=== PATIENT | male | born 1950 | race Caucasian/White ===

== ENCOUNTER → 2017-03-04 | Outpatient (CLI) | payer OTHER ==
[~2017-03-04] MED LIST: ASPI325T45 PO; ATEN50TA8 PO; ATOR-54 PO
[2017-03-04 14:50] LABS: BASO % 0.5 %; BASO ABS # 0.04 K/uL (0-0.2); COMPLETE YES; EOS % 3.8 %; HEMATOCRIT 44.5 % (42-52); IG% 0.5 %; LYMPH % 31.1 %; LYMPH ABS # 2.56 K/uL (1.2-3.4); MEAN CELL VOLUME 92.3 fL (80-100); MEAN CORPUSCULAR HEMOGLOBIN 31.5 pg (25-34); MEAN CORPUSCULAR HGB CONC 34.2 g/dl (32-36); MEAN PLATELET VOLUME 9.8 fL (7.4-10.4); MONO % 7.6 %; NEUT % 56.5 %; PLATELET COUNT 290 K/uL (130-400); RED BLOOD COUNT 4.82 M/uL (4.7-6.1); WHITE BLOOD COUNT 8.24 K/uL (4.8-10.8)
[2017-03-04 15:31] LABS: BLOOD UREA NITROGEN 14 mg/dl (7-18); BUN/CREATININE RATIO 13.7 (10-20); CALCIUM 8.8 mg/dl (8.5-10.1); CARBON DIOXIDE 24 mmol/L (21-32); CHLORIDE 107 mmol/L (98-107); GLUCOSE 108 mg/dl (70-99); POTASSIUM 4.2 mmol/L (3.5-5.1); SODIUM 139 mmol/L (136-145)
== END | disposition home or self-care (01) ==
LOC: C.LABSPEC 14:30
PROVIDERS: ATTEND Internal Medicine
DX: Z01.812 Encounter for preprocedural laboratory examination (principal); I10 Essential (primary) hypertension

== ENCOUNTER → 2017-03-11 | Day surgery (SDC) | payer OTHER ==
[2017-02-10 10:55] VITALS: Ht 177.8 cm; Wt 97.7 kg
--- NOTE | 2017-03-07 13:22 | HISTORY & PHYSICAL EXAMINATION ---
DATE OF ADMISSION: 03/11/2017 HISTORY OF PRESENT ILLNESS: A 66-year-old male scheduled to undergo left cataract surgery on 03/11/2017. His medical problems include: 1. Arterial hypertension. 2. Hyperlipidemia. 3. Smoker. 4. Insomnia. CURRENT MEDICATIONS: Include: 1. Atenolol 50 mg daily. 2. Lipitor 20 mg daily. 3. Lorazepam 0.5 mg at bedtime as needed. 4. Aspirin occasionally about twice a week. Overall, he is doing quite well. REVIEW OF SYSTEMS: He denied any headache or dizziness or lightheadedness. Denied any earache, sore throat or neck pain. He does have decreased hearing. Denied any neck pain. No chest pain, pressure or tightness. No shortness of breath. No cough, no sputum, no hemoptysis. Denied any abdominal pain. No nausea, no vomiting. No problem with his bowel movements. No blood in his stool. No urinary problem. No pain in his back or extremities. No ankle edema. PAST MEDICAL HISTORY: Include: 1. Arthroscopic surgery of the left knee done in the remote past. He fell down off his truck and injured his knee. 2. He has had prior episode of bronchitis. SOCIAL HISTORY: He is . He has 3 daughters. Denied any excessive amount of alcohol. He does smoke now about 2 packs per week. No drugs. No excessive coffee, tea or soft drinks. 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 FAMILY HISTORY: Positive for coronary artery disease and his father had it. One sister had multiple sclerosis. ALLERGIES: None. MEDICATIONS: As noted above. REVIEW OF SYSTEMS: As noted above. GENERAL: Well-developed in no distress. Weight 221.4 pounds, height 66.5 inches, BMI 35.2. VITAL SIGNS: Blood pressure 114/60, pulse 68 and regular, temperature 98.5, respirations 18. SKIN: Warm and dry. No rash. HEAD, EYES, EARS, NOSE, AND THROAT: He does wear glasses. Decreased vision related to his cataracts. Decreased hearing. No mucosal abnormalities in his nose, mouth or throat. NECK: Supple. Nontender. No adenopathy, no thyromegaly. No JVD. Normal carotid pulses. No carotid bruit. CHEST: Normal. HEART: Regular heart sounds without any murmur, rub or gallop. LUNGS: Clear. ABDOMEN: Soft, nontender, without organomegaly or masses. BACK: No spinal tenderness. EXTREMITIES: No edema, clubbing, or cyanosis. No joint or muscle tenderness. Absent right dorsalis pedis pulse. The rest of his pedal pulses are normal. NEUROLOGICAL EXAMINATION: He is alert and oriented without evidence of any deficits. ASSESSMENT: 1. Bilateral cataracts. Scheduled for his left cataract surgery on 03/11/2017. The left eye will be operated on about a month. 2. Arterial hypertension. 3. Hyperlipidemia. 4. Insomnia. 5. Smoker. PLAN: 1. Electrocardiogram was done in the office. He does have a chronic right bundle branch block. His electrocardiogram did not show any changes compared to prior electrocardiogram done in the hospital. 2. Blood was drawn for a CBC. His CBC was completely normal. Also was drawn for a PRP and that is also normal. 3. He will continue taking his same medications. 4. His condition is stable. I do not see any contraindication to his anticipated cataract surgery. 5. He will follow up with the office as scheduled.
[~2017-03-11] VITALS: Ht 177.8 cm; Wt 97.7 kg
[~2017-03-11] MED LIST changes: +500ML BSS 0.3ML EPI 1:1000PF IRRIG ONE; +ACETAMINOPHEN 325 MG TAB PO PRN; +AMVISC PLUS 0.8ML SYRINGE INT OCU ONE; +ATROPINE SULFATE 0.1 MG/ML 5ML SYR IV PRN; +BSS FLUSH ONE; +EpHEDrine SULFATE INJ 50 MG/ML AMP IV PRN; +EpINEphrine INJ 1MG/ML AMP 1 MG/ML AMP ONE; +LACTATED RINGER'S 1000ML 500 ML IV SCH; +LIDOCAINE 3.5% OPH GEL PER APPLICATION CHARGE ONE; +LIDOCAINE HCL 1% MPF 2 ML VIAL ONE; +MIDAZOLAM HCL 1 MG/ML 2ML VIAL ONE; +OCUCOAT 1 ML SOLN IO ONE; +POVIDONE-IODINE OP SOLN 30 ML BTL ONE; +PROPARACAINE 0.5% OP SOLN PER DROP CHARGE OPL SCH; +TOBRAMYCIN/DEXAMETHASONE OPH OINT PER APPLN CHARGE ONE
[2017-03-11] MEDS: PHENYLEPHRINE HCL 2.5% OP SOLN PER DROP CHARGE OPL SCH ×2 (10:11→10:16)
[2017-03-11] MEDS: TROPICAMIDE 1% OP SOLN PER DROP CHARGE OPL SCH ×2 (10:12→10:17)
[2017-03-11] MEDS: CYCLOPENTOLATE HCL 1% OP SOLN PER DROP CHARGE OPL SCH ×2 (10:13→10:18)
[2017-03-11] MEDS: KETOROLAC 0.5% OP SOLN PER DROP CHARGE OPL SCH ×2 (10:14→10:19)
[2017-03-11] MEDS: GATIFLOXACIN OP SOLN PER DROP CHARGE OPL SCH ×2 (10:15→10:25)
--- NOTE | 2017-03-11 11:24 | History & Physical Bridge - SC ---
H&P Re-Evaluation Bridge Note: I have examined the patient, reviewed the History & Physical and in the interval since the performance of the History & Physical I have noted the following changes of clinical significance: No changes noted
--- NOTE | 2017-03-11 11:58 | Discharge Instructions-SurgCtr ---
Discharge Instructions Date of Service Mar 11, 2017. Visit Reason for Visit: Cataract Left Eye Discharge Discharge Diagnosis / Problem: cataract Discharge Goals Goal(s): Improve function Activity Recommendations Activity Limitations: per Instructions/Follow-up section Anesthesia . Post Anesthesia Instructions: If you have had General Anesthesia or IV Sedation: * Do not drive today. * Resume driving when surgeon permits. * Do not make important decisions or sign legal documents today. * Call surgeon for: 1. Temperature elevations greater than 101 degrees F. 2. Uncontrollable pain. 3. Excessive bleeding. 4. Persistent nausea and vomiting. 5. Medication intolerance (nausea, vomiting or rash). * For nausea and vomiting use only clear liquids such as: tea, soda, bouillon until nausea subsides, then gradually increase diet as tolerated. * If you have any concerns or questions, call your surgeon's office. If physician is unavailable and it is an emergency, call 911 or go to the nearest emergency room. . Instructions / Follow-Up Instructions / Follow-Up ACTIVITY RECOMMENDATIONS: * No strenuous lifting, jogging or running for 4 days * No swimming or yard work for 1 week. * Limited bending is permitted, such as putting on shoes. RETURN TO SCHOOL/WORK: No work until seen by physician in office. MEDICATIONS: Resume previous medications unless instructed otherwise by your surgeon. This includes eye drops for glaucoma. Zymaxid/Gatifloxacin (larose cap) - one drop every 2 hours until bedtime Nevanac/Ilevro/Prolensa/Ketorolac (doll cap) - one drop every 4 hours until bedtime Prednisolone (white/pink cap, SHAKE WELL) - one drop every 2 hours until bedtime Starting tomorrow - all 3 drops every 4 hours until seen in the office Optive drops - as needed for discomfort SPECIAL CARE INSTRUCTIONS: * Wear eyeshield when sleeping, for four nights. * You may wear your own glasses or sunglasses while awake. * You may read or watch TV * You may shower and wash your face, but be gentle around the eye and pat dry. * Blurry vision and mild irritation are normal. * Call office if pain is more severe or vision becomes dark at . FOLLOW UP VISIT: Follow-up with Dr Hines tomorrow. Diet Recommendations Home Diet: resume previous diet Procedures Procedures Performed: Left Cataract Phacoemulsification With Intraocular Lens Implant Pending Studies Studies pending at discharge: no Medical Emergencies . Who to Call and When: Medical Emergencies: If at any time you feel your situation is an emergency, please call 911 immediately. . Non-Emergent Contact Non-Emergency issues call your: Engineering Project Manager . . "Provider Documentation" section prepared by Martinez Hines. .
--- NOTE | 2017-03-11 11:58 | [facility] Operative Report ---
Operative Report Date of Service Mar 11, 2017. Operative Report 1. PREOPERATIVE DIAGNOSIS: Cataract of the left eye. 2. POSTOPERATIVE DIAGNOSIS: Same. 3. PROCEDURE: Phacoemulsification with intraocular lens implantation of the left eye. SURGEON: Dr. Martinez Hines. ANESTHESIA: Topical Lidocaine gel, 1% Non- Preserved intracameral Lidocaine, and monitored intravenous sedation. INDICATIONS FOR THE PROCEDURE: The patient is a 66 - year-old male with a history of cataract of the left eye causing significant visual impairment. The details of the proposed procedure were explained to the patient who asked appropriate questions and following discussion of all risks, benefits and alternatives agreed to have the procedure done. 4. OPERATION AND FINDINGS: DESCRIPTION OF PROCEDURE: After informed consent was obtained, the patient was brought to the Operating Room at the [facility]. The patient was placed in a supine position and then the left eye was prepped and draped in the usual sterile fashion for intraocular surgery. A drop of topical Lidocaine gel was placed in the operative eye. A wire lid speculum was then placed in the fornices. A corneal paracentesis was then created temporally. The Non-Preserved Lidocaine was then instilled into the anterior chamber. The anterior chamber was then pressurized with viscoelastic. A 2.0 mm clear corneal incision was then created temporally. A cystotome was inserted into the anterior chamber and used to create a tear in the anterior lens capsule. This capsular tear was then used to create a small flap and the flap was dragged in a counterclockwise direction in order to create a continuous curvilinear capsulorrhexis. Hydrodissection was accomplished with balanced salt solution. Phacoemulsification of the lens nucleus was then performed in a standard [id number] technique. The phaco time was 24 seconds with an average power of 9 %. The remaining cortical material was removed using irrigation aspiration. The capsular bag was then filled with viscoelastic. A [employer]ch [employer] Lomb MI60L +20.0 diopters lens was then loaded into the injector and injected into the capsular bag. The remaining viscoelastic was removed with the irrigation aspiration handpiece. The wound was hydrated and then checked and found to be watertight. The intraocular pressure was checked and found to be adequate. The wire lid speculum was removed and the patient's face was cleaned and dried. TobraDex ointment was placed in the inferior fornix. The patient was discharged to the Recovery Room having tolerated the procedure well. There were no complications. The patient will be seen tomorrow in the office for follow-up. I attest to the content of the Intraoperative Record and any orders documented therein. Any exceptions are noted below.
[2017-03-11 11:59] VITALS: TEMP 36.6
[2017-03-11 12:32] VITALS: BP 150/72; PULSE 60; O2SAT 98
--- NOTE | 2017-03-11 12:36 | Anesthesia Progress Nt - [facility] ---
Anesthesia Post Op Note Date & Time Mar 11, 2017 at 12:36 Vital Signs Pain Intensity: 0 Vital Signs Past 12 Hours Date Time Temp Pulse Resp B/P Pulse Ox O2 Delivery O2 Flow Rate FiO2 03/11/17 12:32 60 16 150/72 98 Room Air 03/11/17 11:59 36.6 59 18 135/85 98 Room Air 03/11/17 09:59 36.7 70 16 132/86 98 Room Air Notes Mental Status: alert / awake / arousable, participated in evaluation Pt Amnestic to Procedure: Yes Nausea / Vomiting: adequately controlled Pain: adequately controlled Airway Patency, RR, SpO2: stable & adequate BP & HR: stable & adequate Hydration State: stable & adequate Anesthetic Complications: no major complications apparent
== END | disposition home or self-care (01) ==
LOC: X.SURG 09:40
PROVIDERS: ATTEND Ophthalmology
DX: H26.9 Unspecified cataract (principal); I10 Essential (primary) hypertension; E78.5 Hyperlipidemia, unspecified; F17.200 Nicotine dependence, unspecified, uncomplicated; G47.00 Insomnia, unspecified

== ENCOUNTER → 2017-04-21 | Outpatient (CLI) | payer OTHER ==
[~2017-04-21] MED LIST changes: -500ML BSS 0.3ML EPI 1:1000PF IRRIG ONE; -ACETAMINOPHEN 325 MG TAB PO PRN; -AMVISC PLUS 0.8ML SYRINGE INT OCU ONE; -ATROPINE SULFATE 0.1 MG/ML 5ML SYR IV PRN; -BSS FLUSH ONE; -EpHEDrine SULFATE INJ 50 MG/ML AMP IV PRN; -EpINEphrine INJ 1MG/ML AMP 1 MG/ML AMP ONE; -LACTATED RINGER'S 1000ML 500 ML IV SCH; -LIDOCAINE 3.5% OPH GEL PER APPLICATION CHARGE ONE; -LIDOCAINE HCL 1% MPF 2 ML VIAL ONE; -MIDAZOLAM HCL 1 MG/ML 2ML VIAL ONE; -OCUCOAT 1 ML SOLN IO ONE; -POVIDONE-IODINE OP SOLN 30 ML BTL ONE; -PROPARACAINE 0.5% OP SOLN PER DROP CHARGE OPL SCH; -TOBRAMYCIN/DEXAMETHASONE OPH OINT PER APPLN CHARGE ONE
== END | disposition home or self-care (01) ==
LOC: C.LABSPEC 12:26
PROVIDERS: ATTEND Internal Medicine
DX: Z12.11 Encounter for screening for malignant neoplasm of colon (principal)

== ENCOUNTER → 2017-04-23 | Outpatient (CLI) | payer OTHER ==
[2017-04-23 13:22] LABS: CALCIUM 8.9 mg/dl (8.5-10.1)
[2017-04-23 13:25] LABS: ALT/SGPT 25 U/L (12-78); BLOOD UREA NITROGEN 12 mg/dl (7-18); BUN/CREATININE RATIO 12.4 (10-20); CARBON DIOXIDE 24 mmol/L (21-32); CHLORIDE 106 mmol/L (98-107); CHOLESTEROL 192 mg/dl (0-200); GLUCOSE 97 mg/dl (70-99); POTASSIUM 4.4 mmol/L (3.5-5.1); SODIUM 138 mmol/L (136-145); TRIGLYCERIDES 170 mg/dl (0-150); VERY LOW DENSITY LIPOPROT CALC 34 mg/dl
[2017-04-23 13:31] LABS: ALKALINE PHOSPHATASE 85 U/L (45-117); AST/SGOT 21 U/L (15-37); CHOLESTEROL/HDL RATIO 5.5; HDL CHOLESTEROL 35 mg/dl
[2017-04-23 14:05] LABS: ESTIMATED AVERAGE GLUCOSE 123 mg/dl; HA1C FLAG Normal (Normal)
--- NOTE | 2017-05-01 06:03 | CODING QUERY MEDICAL NECESSITY ---
CQSUPPORTING DIAGNOSIS NEEDED A supporting diagnosis is required for the test/procedure performed on this patient in order for us to be reimbursed by the patient's insurance. Please provide a supporting diagnosis for the following test/procedure listed below next to the test name along with your signature. *If there is no additional diagnosis for this patient that would support the following test/procedure please document that below next to the test/procedure. Test(s)/Procedure(s) that require a supporting diagnosis: DOS 04/23/17 PROSTATE SPECIFIC TEST Provider Signature: Date: Thank you Lyn Alonso [employer] Once completed, please kindly fax back to [phone] For questions please call [phone]
== END | disposition home or self-care (01) ==
LOC: C.LABSPEC 12:38
PROVIDERS: ATTEND Internal Medicine
DX: R73.9 Hyperglycemia, unspecified (principal); I10 Essential (primary) hypertension; E78.5 Hyperlipidemia, unspecified; Z00.01 Encounter for general adult medical examination with abnormal findings; N40.1 Benign prostatic hyperplasia with lower urinary tract symptoms; R30.0 Dysuria

== ENCOUNTER 2022-03-22 15:47 | Inpatient (IN) ==
[2022-03-22] MEDS ORDERED: SODIUM CHLORIDE 0.9% 500 ML IV STA (15:49)
[2022-03-22] MEDS ORDERED: KETAMINE HCL INJ 50 MG/ML 10 ML VIAL ONE (16:01)
[2022-03-22] MEDS ORDERED: KETAMINE HCL INJ 50 MG/ML 10 ML VIAL IV ONE (16:15)
--- NOTE | 2022-03-22 16:26 | Emergency Department Note ---
Impression & Plan CHB (complete heart block), Syncope, Acute non-ST elevation myocardial infarction (NSTEMI) ED Provider Note NAME: TRUPTI SALOMON AGE: 71 SEX: M : 1950 ARRIVES VIA: Ambulance INFORMANT: Patient, EMS ED PROVIDER(S): Erik Dominguez DO CHIEF COMPLAINT: Syncope HPI: The patient is a 71-year-old male who presented to the emergency department by ambulance for an evaluation after having a syncopal episode. I did receive a prehospital notification about the patient coming to the emergency department. The pneumatic press hand called me to inform me that the patient had an episode of syncope while on the toilet. He has had some GI symptoms over the last 2 days including nausea vomiting and diarrhea. He also has been seen by his family doctor. They want to do a formal work-up to rule out an aneurysm in the brain as he has been having dizzy spells and headaches. The patient does not have a known history of aneurysm. He has no history of known coronary artery disease. He does take medications for hypertension and high cholesterol. He had an episode of syncope and then was found to be bradycardic. He had a questionable episode of shaking but no postictal phase. The paramedics found the patient to be in severe bradycardia in the 20s. He received atropine which did not change his heart rate. The patient did not have a blood pressure obtained as he could not obtain 1 in the prehospital arena. The patient was mentating upon arrival to the emergency department. He denies having any headache at this time. He has had no chest pain or difficulty breathing. He denies having any abdominal pain or swelling. The patient was discussed with the box blank machine operator helper immediately upon his arrival to the emergency department. Transcutaneous pacemaker was placed prior to arrival. ROS: See above HPI for pertinent positives & negatives. A total of 10 systems reviewed and were otherwise negative. PAST MEDICAL HISTORY: See Below PAST SURGICAL HISTORY: See Below FAMILY HISTORY: See Below SOCIAL HISTORY: See Below HOME MEDICATIONS: See Below ALLERGIES: See Below VITALS: See Below PHYSICAL EXAMINATION: GENERAL: The patient is awake and alert. He is very uncomfortable appearing and anxious. His color is ashen doll. EYES: The conjunctivae are clear. The pupils are round and reactive. EARS, NOSE, MOUTH AND THROAT: The nose is without any evidence of any deformity. NECK: The neck is nontender and supple. RESPIRATORY: Normal respiratory effort is noted there is no evidence of wheezing rhonchi or rales CARDIOVASCULAR: Heart sounds were intermittently noted. It was difficult to auscultate secondary to the pacemaker. GASTROINTESTINAL: The abdomen is soft. Abdomen is nontender. MUSCULOSKELETAL/EXTREMITIES: There is no evidence of gross deformity full range of motion is noted in the hips and shoulders. SKIN: Skin was cool and dry. There is no significant pedal edema. NEUROLOGIC: Patient is awake alert and oriented x3 strength is symmetric patellar reflexes are 2+ bilaterally MEDICAL DECISION MAKING: The patient is a 71-year-old male who presented to the emergency department for an evaluation after having a syncopal episode. I received a prehospital notification about the patient as he was in complete heart block with a heart rate in the 20s. He was given atropine prior to arrival. This did not improve his symptoms or his heart rate. The patient was then started on transcutaneous pacer. He arrived to the emergency department with normal mentation but had episodes where he would seem to have syncope again only to return after the transcutaneous pacemaker would recapture. The patient appears to have complete heart block on his prehospital EKG. I discussed his condition with the on-call [facility] box blank machine operator helper. The patient was felt to be a candidate for temporary transvenous pacer. He was taken directly to the Pricing Clerk. I went to the Pricing Clerk with the patient. I discussed the patient's condition with the on-call [facility] hospitalist. They have agreed to evaluate the patient in the ICU for further management. The patient was also being worked up by his primary care physician for dizziness symptoms. He has not had formal neurologic work-up as of yet. I would wonder if these episodes he was having which led to syncope could be what he was describing to his primary care physician as well. Triage Nursing notes reviewed. Prior medical records reviewed Vital Signs: reviewed and remarkable for initial bradycardia with heart block. Differential diagnosis: Vasovagal event, dehydration, infection, hypoglycemia, electrolyte abnormalities, cardiac sources, intracerebral event, pulmonary embolism, seizur e, toxicologic, neurologic, as well as other pathologies. ER treatment provided: See below Diagnostics interpreted by me: ECG: EKG was obtained in the emergency department. It was noted to be paced rhythm at 80 bpm. It was difficult to evaluate secondary to the transcutaneous pacer. Prehospital EKG was evaluated. It appears to be consistent with complete heart block with a ventricular rate in the 20s. This was compared to a previous tracing from 05/07/2016. The changes are new compared to the previous tracing. Cardiac Monitoring: An order was placed for continuous cardiac monitoring. The monitor shows a rate of 80 bpm paced rhythm. Laboratory studies: As stated above and show below. Imaging studies: See below Consultation(s): I discussed this case with Dr. Ortez who offered to evaluate the patient in the emergency department immediately for formal pacemaker placement. The Pricing Clerk was sent down the patient was taken up to the Pricing Clerk by myself as well as Pricing Clerk nurses. Dr. Ham was notified about the patient. ED COURSE: Procedures: none Critical Care: I have personally spent greater than 45 minutes of critical care time in the direct management of this patient. This includes bedside care, interpretation of diagnostic studies, and testing, discussion with consultants, patient, and family members, and other required patient management activities. This 45 minutes is in excess of all separately billable procedures. Past Med/Surg History Medical History (Updated 03/22/22 @ 17:34 by Erik Dominguez DO) Anxiety Carpal tunnel syndrome Depression Hearing deficit Left Hypercholesteremia Hypertension Osteoarthritis Peripheral vascular disease RLE stent (Dr Acevedo/2017) Surgical History History of carpal tunnel release Left CTR: 12/22/19: MAC sedation at [facility] [place] History of colonoscopy Hx of excision of epidermal inclusion cyst Dr. Castro 07-01-19 Hx of left cataract extraction Hx of left knee surgery Arthroscopy (20 years ago) Family History Brother Stroke Social History Smoking Status: Former smoker Tobacco Type: Cigarettes Cigarettes Per Day: 2 pk per week; Second Hand Exposure: No; Hx Alcohol Use: Yes Alcohol type: beer and hard liquor Hx Substance Use: No Preferred Language: Nigerian Communication Ability: Effective Library Clerk Required: No Beliefs That Will Affect Care: None marital status: Current Living Situation: Alone current occupational status: retired current occupation: [employer] Other Information That Helps Us Care for You: No Feels Safe at Home: Yes Safety Concerns: Feels Safe At This Time Assistive Devices: Glasses Allergies Allergies Allergy/AdvReac Type Severity Reaction Status Date / Time No Known Allergies Allergy Verified 04/06/20 14:09 Home Meds Home Medications Medication Instructions Recorded Confirmed atenolol 50 mg tablet 50 mg PO QAM tab 06/10/19 04/06/20 atorvastatin 20 mg tablet 20 mg PO QAM tab 06/10/19 04/06/20 lorazepam 1 mg tablet 1 mg PO HS PRN tab 06/10/19 04/06/20 aspirin 81 mg tablet,delayed 81 mg PO QAM 12/16/19 04/06/20 release (Aspir-) Previous Rx's Medication Instructions Recorded meloxicam 15 mg tablet 15 mg PO DAILY PRN #30 tab 08/04/20 Results & Data (ED) Vital Signs Vital Signs - 24 hr 03/22/22 15:47 03/22/22 16:05 03/22/22 16:40 Temperature 36.4 C L Temperature Source Oral Pulse Rate 80 Pulse Rate [Apical] 80 Pulse Rhythm [Apical] Regular Pulse Strength [Apical] Normal Respiratory Rate 28 H 16 Respiratory Effort / Characteristics Non-Labored Spontaneous Respiratory Depth Normal Blood Pressure [Left Arm] 135/107 H 132/89 Blood Pressure Mean [Left Arm] 116 103 Blood Pressure Position [Left Arm] Lying Pulse Oximetry 90 98 Oxygen Delivery Method Non-rebreather Nasal Cannula Oxygen Flow Rate 15 3 Sepsis Recent Fever Within 48 Hours No Sepsis New/Unexplained Change in Mental Status No Sepsis Action Taken by Nursing No Action Required 03/22/22 16:55 03/22/22 17:09 03/22/22 17:26 Temperature Temperature Source Pulse Rate Pulse Rate [Apical] 80 80 80 Pulse Rhythm [Apical] Regular Regular Regular Pulse Strength [Apical] Normal Normal Normal Respiratory Rate 16 16 16 Respiratory Effort / Characteristics Non-Labored Spontaneous Non-Labored Spontaneous Non-Labored Spontaneous Respiratory Depth Normal Normal Normal Blood Pressure [Left Arm] 115/83 98/80 L 115/84 Blood Pressure Mean [Left Arm] 93 86 94 Blood Pressure Position [Left Arm] Lying Lying Lying Pulse Oximetry 98 98 98 Oxygen Delivery Method Nasal Cannula Nasal Cannula Nasal Cannula Oxygen Flow Rate 3 3 3 Sepsis Recent Fever Within 48 Hours Sepsis New/Unexplained Change in Mental Status Sepsis Action Taken by Nursing 03/22/22 17:36 Temperature Temperature Source Pulse Rate Pulse Rate [Apical] 80 Pulse Rhythm [Apical] Regular Pulse Strength [Apical] Normal Respiratory Rate 16 Respiratory Effort / Characteristics Non-Labored Spontaneous Respiratory Depth Normal Blood Pressure [Left Arm] 125/75 Blood Pressure Mean [Left Arm] 91 Blood Pressure Position [Left Arm] Lying Pulse Oximetry 98 Oxygen Delivery Method Nasal Cannula Oxygen Flow Rate 3 Sepsis Recent Fever Within 48 Hours Sepsis New/Unexplained Change in Mental Status Sepsis Action Taken by Care Home Medications Current Medication List: was personally reviewed by me Laboratory Data Attestation: I reviewed the patient's lab results. Result diagrams: 03/23/22 02:25 03/23/22 02:25 Lab Results 03/22/22 03/22/22 03/22/22 Range/Units 16:00 16:00 16:00 WBC 16.71 H (4.8-10.8) K/uL RBC 4.73 (4.7-6.1) M/uL Hgb 14.6 (14.0-18.0) g/dL Hct 43.5 (42-52) % MCV 92.0 (80-100) fL MCH 30.9 (25-34) pg MCHC 33.6 (32-36) g/dL RDW Std Deviation 42.6 (36.4-46.3) fL RDW Coeff of Marco Antonio 12.6 (11.5-14.5) % Plt Count 300 (130-400) K/uL MPV 10.0 (7.4-10.4) fL Immature Gran % (Auto) 0.5 % Neut % (Auto) 76.0 % Lymph % (Auto) 17.2 % [place] % (Auto) 5.3 % Eos % (Auto) 0.8 % Baso % (Auto) 0.2 % Neut # (Auto) 12.71 H (1.4-6.5) K/uL Lymph # (Auto) 2.87 (1.2-3.4) K/uL [place] # (Auto) 0.88 H (0.11-0.59) K/uL Eos # (Auto) 0.13 (0-0.5) K/uL Baso # (Auto) 0.03 (0-0.2) K/uL Immature Gran # (Auto) 0.09 H (0.00-0.02) K/uL PT 10.9 (9.0-12.0) Seconds INR 1.0 (0.9-1.1) APTT 25.9 (21.0-31.0) Seconds PTT Ratio 0.9 Sodium 134 L (136-145) mmol/L Potassium 5.1 (3.5-5.1) mmol/L Chloride 101 (98-107) mmol/L Carbon Dioxide 23 (21-32) mmol/L Anion Gap 10 (3-11) BUN 17 (6-23) mg/dl Creatinine 1.40 (0.6-1.4) mg/dl Est Cr Clr Drug Dosing 56.4 ml/min Est GFR ( Amer) 57.8 ml/min Est GFR (Non-Af Amer) 49.8 ml/min BUN/Creatinine Ratio 12.1 (10-20) Glucose 221 H (70-99(Fasting)) mg/dl Calcium 9.0 (8.5-10.1) mg/dl Magnesium 2.0 (1.7-2.4) mg/dl Total Bilirubin 0.6 (0.2-1.0) mg/dl AST 23 (13-39) U/L ALT 13 (7-52) U/L Alkaline Phosphatase 76 (34-104) U/L Troponin I High Sens 1158.8 H* (0-20) pg/ml Total Protein 6.9 (6.0-8.3) gm/dl Albumin 3.9 (3.4-5.0) gm/dl Globulin 3.0 (2.5-4.0) gm/dl Albumin/Globulin Ratio 1.3 (0.9-2) TSH (0.300-4.500) uIu/ml Lyme Disease IgG Ab (Negative) Lyme Disease IgM Ab (Negative) SARS-CoV-2, RNA, NAAT (NEGATIVE) 03/22/22 03/22/22 03/22/22 Range/Units 16:00 16:00 16:05 WBC (4.8-10.8) K/uL RBC (4.7-6.1) M/uL Hgb (14.0-18.0) g/dL Hct (42-52) % MCV (80-100) fL MCH (25-34) pg MCHC (32-36) g/dL RDW Std Deviation (36.4-46.3) fL RDW Coeff of Marco Antonio (11.5-14.5) % Plt Count (130-400) K/uL MPV (7.4-10.4) fL Immature Gran % (Auto) % Neut % (Auto) % Lymph % (Auto) % [place] % (Auto) % Eos % (Auto) % Baso % (Auto) % Neut # (Auto) (1.4-6.5) K/uL Lymph # (Auto) (1.2-3.4) K/uL [place] # (Auto) (0.11-0.59) K/uL Eos # (Auto) (0-0.5) K/uL Baso # (Auto) (0-0.2) K/uL Immature Gran # (Auto) (0.00-0.02) K/uL PT (9.0-12.0) Seconds INR (0.9-1.1) APTT (21.0-31.0) Seconds PTT Ratio Sodium (136-145) mmol/L Potassium (3.5-5.1) mmol/L Chloride (98-107) mmol/L Carbon Dioxide (21-32) mmol/L Anion Gap (3-11) BUN (6-23) mg/dl Creatinine (0.6-1.4) mg/dl Est Cr Clr Drug Dosing ml/min Est GFR ( Amer) ml/min Est GFR (Non-Af Amer) ml/min BUN/Creatinine Ratio (10-20) Glucose (70-99(Fasting)) mg/dl Calcium (8.5-10.1) mg/dl Magnesium (1.7-2.4) mg/dl Total Bilirubin (0.2-1.0) mg/dl AST (13-39) U/L ALT (7-52) U/L Alkaline Phosphatase (34-104) U/L Troponin I High Sens (0-20) pg/ml Total Protein (6.0-8.3) gm/dl Albumin (3.4-5.0) gm/dl Globulin (2.5-4.0) gm/dl Albumin/Globulin Ratio (0.9-2) TSH 2.532 (0.300-4.500) uIu/ml Lyme Disease IgG Ab Negative (Negative) Lyme Disease IgM Ab Negative (Negative) SARS-CoV-2, RNA, NAAT NEGATIVE (NEGATIVE) Administered Medications Heparin Sodium/Dextrose (Heparin Sodium/Dextrose) 25,000 units in 500 mls @ 30 mls/hr IV .[id number] [facility]; Protocol Stop: 04/21/22 19:44 Last Titration: 03/23/22 06:53 Dose: 1,500 units/hr, 30 mls/hr Documented by: [id number] Cosigned by: [id number] Admin: 03/22/22 20:05 Dose: 1,500 units/hr, 30 mls/hr Documented by: [id number] Cosigned by: [id number] Discontinued Medications Sodium Chloride (Nss) 500 mls @ 999 mls/hr IV .Q31M STA Stop: 03/22/22 16:19 Last Infusion: 03/22/22 20:36 Dose: 0 mls/hr Documented by: [id number] Admin: 03/22/22 16:05 Dose: 999 mls/hr Documented by: [id number] Ketamine HCl (Ketamine Hcl Inj 50 Mg/Ml 10 Ml Vial) Confirm Administered Dose 500 mg .ROUTE .STK-MED ONE Stop: 03/22/22 16:02 Last Admin: 03/22/22 16:05 Dose: 100 mg Documented by: [id number] Ketamine HCl (Ketamine Hcl Inj 50 Mg/Ml 10 Ml Vial) 100 mg IV ONE ONE Stop: 03/22/22 16:16 Last Admin: 03/22/22 16:10 Dose: Not Given Documented by: [id number] Discharge Plan Visit Data Chief Complaint: Bradycardia ED Provider: Erik Dominguez Discharge Problem: CHB (complete heart block), Syncope, Acute non-ST elevation myocardial i nfarction (NSTEMI) Patient Disposition: Being Evaluated by Hospitalist Discharge Instructions Interventions: ED Discharge Assessment Last Done: 03/22/22 16:08 Discharge Problem: Syncope Qualifiers: Syncope type: unspecified Qualified Code(s): R55 - Syncope and collapse
[2022-03-22 16:30] LABS: Basophils # (auto) 0.03 K/uL (0-0.2); Basophils % (auto) 0.2 %; Eosinophils # (auto) 0.13 K/uL (0-0.5); Eosinophils % (auto) 0.8 %; Hematocrit (blood only) 43.5 % (42-52); Hemoglobin 14.6 g/dL (14.0-18.0); Immature Granulocytes # (auto) 0.09 K/uL (0.00-0.02); Immature Granulocytes % (auto) 0.5 %; Lymphocytes # (auto) 2.87 K/uL (1.2-3.4); Lymphocytes % (auto) 17.2 %; Mean Corpuscular Hemoglobin 30.9 pg (25-34); Mean Corpuscular Hgb Conc 33.6 g/dL (32-36); Monocytes # (auto) 0.88 K/uL (0.11-0.59); Monocytes % (auto) 5.3 %; Neutrophils # (auto) 12.71 K/uL (1.4-6.5); Platelet Count 300 K/uL (130-400); RDW Coefficient of Variation 12.6 % (11.5-14.5); RDW Standard Deviation 42.6 fL (36.4-46.3); Red Blood Count 4.73 M/uL (4.7-6.1); White Blood Count 16.71 K/uL (4.8-10.8)
[2022-03-22 16:39] LABS: Partial Thromboplastin Ratio 0.9; Partial Thromboplastin Time 25.9 Seconds (21.0-31.0); Prothrombin Time 10.9 Seconds (9.0-12.0)
[2022-03-22 16:50] LABS: Albumin Globulin Ratio 1.3 (0.9-2); Albumin Level 3.9 gm/dl (3.4-5.0); BUN Creatinine Ratio 12.1 (10-20); Bilirubin,Total 0.6 mg/dl (0.2-1.0); Creatinine Clr Calc Pharmacy 56.4 ml/min; Est GFR (African American) 57.8 ml/min; Est GFR (Non-African American) 49.8 ml/min; Potassium 5.1 mmol/L (3.5-5.1); Total Protein 6.9 gm/dl (6.0-8.3)
[2022-03-22 16:59] LABS: Troponin I High Sensitivity 1158.8 pg/ml (0-20)
--- NOTE | 2022-03-22 17:03 | Electrophysiology Report ---
Date of Service March 22, 2022 Electrophysiology Procedure Electrophysiology Procedure Report Preoperative diagnosis: Complete heart block with asystole Postoperative diagnosis: Same Procedure temporary pacemaker implantation Surgeon Paul Ortez MD Procedure: The patient was brought to the Incendiary Powder Mixer unresponsive on his ZOLL external pacemaker, he had received ketamine although it was not clear how well the external pacemaker was capturing. I reviewed the procedure quickly with his granddaughter and then we brought him to the Incendiary Powder Mixer where the right groin was prepped in the standard sterile manner and right femoral vein access was obtained. A temporary pacing catheter was advanced under fluoroscopic guidance to position at the right ventricular apex. Pacing thresholds were evaluated and were 0.5 V. The pacemaker was set to 80 bpm and output of 5 V, the introducer sheath was attached to the groin using silk suture. Postoperative the patient began to wake up. He tolerated the procedure well, there are no complications and he returned to the Incendiary Powder Mixer recovery area. Estimated blood loss was minimal. [facility] [place] Electrophysiology codes Indication for Procedure (1) Complete heart block by electrocardiogram: Miscellaneous Procedures Procedure 1: EP Miscellaneous: 40743 Pacing temp percut, single
[2022-03-22 17:23] LABS: Lyme Ab IgG w/WB Rflx Negative (Negative); Lyme Ab IgM w/WB Rflx Negative (Negative)
[2022-03-22] MEDS ORDERED: ICU PROTOCOL FOR HYPERGLYCEMIA PRN (17:39)
--- NOTE | 2022-03-22 18:06 | Critical Care Consultation ---
Date of Consultation March 22, 2022 Assessment & Plan (1) CHB (complete heart block): ICU Assessment and Plans Reason Critically Ill: 71 yo M admitted to ICU for monitoring after temporary transvenous pacemaker placement due to complete heart block, awaiting permanent pacemaker insertion. Neuro - CAM ICU: NEGATIVE Sedation: None Analgesia: None, no pain at present Fully alert and oriented Cardiac/Vascular - Complete heart block -S/p temporary transvenous pacemaker insertion on 03/22 -Cardiology tentatively planning permanent pacemaker implantation on 03/25 -Currently paced sinus rhythm with HR 80 -Hemodynamically stable, normotensive Elevated troponin -Troponin 12 on admission, continue trending -EKG does not suggest ischemic injury and no active anginal symptoms Aneurysm evaluation -Supposed to receive outpatient MRI to evaluate for cerebral aneurysm -Will most likely have to get this done after discharge as outpatient Respiratory - No known respiratory disease Saturating well on RA GI - Diet- heart healthy RENAL/ELECTROLYTES - No significant electrolyte derangement on admission Mild hyponatremia to 134 Trend BMP - No concerns at this time ENDO - No known history of diabetes Glucose 221 on admission likely due to stress hyperglycemia ICU hyperglycemic protocol HEME - Hgb 14.6, stable Trend CBC ID - WBC 16.7 on admission, afebrile No infectious symptoms at this point, low concern for infection Leukocytosis likely secondary to postoperative state LINES/IV ACCESS - PIVs intact. DVT PROPHYLAXIS - Heparin 5000u BID Disposition: ICU (2) Syncope: Supervising Physician Co-Signing Physician Notes Dr. Murray was resident physician during care of patient. I separately evaluated patient for mortensen portions of the history and the exam. I was present during the critical portion of medical decision making, and I discussed the case with the resident. I generally agree with the findings and plan. Had extensive discussion with patient. Also discussed with cardiology temporary pacemaker at this time. Will continue with heparin for anticoagulation given elevated troponins. Will likely need permanent pacemaker in the near future. I have personally spent 45 minutes of critical care time in the direct management of this patient. This is a life/limb threatening event. This includes time spent evaluating patient, direct bedside care, chart review, placing orders, interpretation of diagnostic studies, discussion with consultants, patient, and/or family members regarding treatment decisions, as well as other required patient management activities. This time is exclusive of all separately billable procedures, and teaching time and separate from and in addition to any other critical care service time. History of Present Illness Reason for Consultation: Monitoring after placement of temporary transvenous pacer due to complete heart block Requesting Physician: Paul Ortez Attending Physician: Morgan Ham History of Present Illness History obtained from patient and chart review. 71 yo M with PMH HLD, HTN, PAD admitted to ICU for monitoring after placement of temporary transvenous pacemaker due to complete heart block. Pt presented to [facility] on 03/22 due to syncopal episode. Reports GI symptoms of nausea, NBNB emesis and non-bloody diarrhea 2x days. Has also experienced dizzy spells and headaches during this time. Pt was shaking during this episode. EMS promptly called and noted bradycardia to HR 20s on evaluation for which he was given atropine without improvement. Pt was mentating at baseline by time of arrival to ED. No chest pain or dyspnea during this time. Transcutaneous pacemaker placed prior to arrival. EKG demonstrated complete heart block and pt later became unresponsive. Was brought emergently to catheterization lab and underwent uncomplicated temporary transvenous pacemaker placement. Cardiology tentatively planning permanent pacemaker insertion. On evaluation, pt denies any acute complaints. Did ask if his upcoming evaluation for aneurysm may be related to his symptoms. Denies any chest pain or dyspnea, lightheadedness or dizziness. Allergies Allergy/AdvReac Type Severity Reaction Status Date / Time No Known Allergies Allergy Verified 04/06/20 14:09 Home Medications Medication Instructions Recorded Confirmed Type atenolol 50 mg tablet 50 mg PO QAM tab 06/10/19 04/06/20 History atorvastatin 20 mg tablet 20 mg PO QAM tab 06/10/19 04/06/20 History lorazepam 1 mg tablet 1 mg PO HS PRN tab 06/10/19 04/06/20 History aspirin 81 mg tablet,delayed 81 mg PO QAM 12/16/19 04/06/20 History release (Aspir-) meloxicam 15 mg tablet 15 mg PO DAILY PRN #30 tab 08/04/20 Rx Patient History Medical History (Updated 03/23/22 @ 08:11 by Paul Ortez MD) Anxiety Carpal tunnel syndrome Depression Hearing deficit Left Hypercholesteremia Hypertension Osteoarthritis Peripheral vascular disease RLE stent (Dr Acevedo/2017) Surgical History History of carpal tunnel release Left CTR: 12/22/19[place] [facility] [place] of colonoscopy Hx of excision of epidermal inclusion cyst Dr. Castro 07-01-19 Hx of left cataract extraction Hx of left knee surgery Arthroscopy (20 years ago) Family History Brother Stroke Social History Smoking Status: Former smoker Tobacco Type: Cigarettes Cigarettes Per Day: 2 pk per week; Second Hand Exposure: No; Hx Alcohol Use: Yes Alcohol type: beer and hard liquor Hx Substance Use: No Preferred Language: Prydeinig Communication Ability: Effective Search Engine Optimizer Required: No Beliefs That Will Affect Care: None marital status: Current Living Situation: Alone current occupational status: retired current occupation: [employer] Other Information That Helps Us Care for You: No Feels Safe at Home: Yes Safety Concerns: Feels Safe At This Time Assistive Devices: Glasses Review of Systems Review of Systems: Per subjective Physical Exam Physical Exam: GENERAL - Appears stated age, no acute distress. Communicating with provider and answering questions appropriately. SKIN - No rashes. HEAD - NC/AT. EYES - PERRL with EOMI b/l. Anicteric sclerae. EARS - No deformities of external structures b/l NOSE - Midline. No epistaxis or purulent drainage. Septum midline without deviation. MOUTH/OROPHARYNX - No perioral cyanosis. Buccal mucosa pink and moist. NECK - supple to palpation LUNGS - Chest wall rise and fall symmetric without accessory muscle use or intercostal retractions. CTAB of all lung zambrano. No wheezes, rales, or rhonchi appreciated. CARDIAC - regular paced rhythm with normal S1/S2. No murmurs appreciated. No bruits. ABDOMEN - Soft, nontender, nondistended. Normal bowel sounds. No guarding or rebound. No hepatosplenomegaly or ascites. EXTREMITIES - No clubbing or peripheral cyanosis. No peripheral edema present. DTRs 2+, distal pulses of LE intact b/l. Normal bulk and tone of b/l UE and LE NEUROLOGIC - Cranial nerves II through XII grossly intact. No focal motor deficits. Sensation intact to light touch throughout. PSYCH - Grossly alert and oriented, cooperates fully with examiner. Pt is very pleasant and interacts well with examiner. Results & Data Results & Data ([facility]) Vital Signs (Past 12 Hours) Vital Signs Temp Pulse Pulse Resp BP Pulse Ox 03/22/22 17:36 80 16 125/75 98 03/22/22 17:26 80 16 115/84 98 03/22/22 17:09 80 16 98/80 L 98 03/22/22 16:55 80 16 115/83 98 03/22/22 16:40 80 16 132/89 98 03/22/22 16:05 135/107 H 03/22/22 15:47 36.4 C L 80 28 H 90 Resident Activity Tracking Resident Involvement: Resident Care Provided Care Provided: Adult Hospital Medicine (1) Syncope Syncope type: unspecified Qualified Code(s): R55 - Syncope and collapse
[2022-03-22] MEDS ORDERED: Heparin IV Adult Wt-Based Standard *NO* Bolus Protocol IV SCH (19:27)
--- NOTE | 2022-03-22 19:30 | Cardiology Consultation ---
Date of Consultation March 22, 2022 Assessment & Plan (1) CHB (complete heart block): (2) Syncope: (3) Headache: 1. Complete heart block: He presents in complete heart block, there is no obvious cause. He is on beta-blockade which is a possibility although he is on a relatively low dose and that has not changed. This should be held however. A Lyme screen should be performed although I suspect this is intrinsic conduction system disease and I suspect he will need a pacemaker. Currently a pacemaker is planned for Friday. 2. Syncope: His episodes of syncope are almost certainly due to transient complete heart block which is of relatively recent onset. 3. Headache: This is a very unusual symptom of heart block but perhaps that is the case, apparently his episodes of heart block are associated with headache. Whether his headache should be worked up further at this time I will leave to the primary service. History of Present Illness Reason for Consultation: Complete heart block Attending Physician: Morgan Ham History of Present Illness This is a 71-year-old male who has been in quite good health but over the last week or so prior to admission was having a lot of difficulty with sudden severe headaches associated with presyncope but no true syncope. Up till that time he felt well with no limitations in activities. This afternoon he came into the emergency room via ambulance with 1 of these episodes and was in complete heart block. While in the emergency room he had periods of asystole and unresponsiveness, and external pacemaker was applied and it was quite uncomfortable therefore ketamine was given. He was brought to the [facility] for emergency pacemaker implantation. When I met him at that time he was minimally responsive and mildly agitated. The pacemaker was implanted as noted separately. After pacemaker implantation his vital signs were stable and he fairly quickly regained consciousness and was conversational. When I saw him in his room after pacemaker implantation he was quite comfortable and he could answer questions appropriately. Apparently he has been having periods of sudden onset of headache associated with presyncope for about a week, he denies symptoms of chest discomfort as well as symptoms of palpitations. He describes his presyncopal episodes more in terms of his headache than in terms of lightheadedness or dizziness. These symptoms were especially bad when he presented consistent with him being due to bradycardia. Following pacemaker implantation he has not had the symptoms and he has no chest discomfort. Allergies Allergy/AdvReac Type Severity Reaction Status Date / Time No Known Allergies Allergy Verified 04/06/20 14:09 Home Medications Medication Instructions Recorded Confirmed Type atenolol 50 mg tablet 50 mg PO QAM tab 06/10/19 04/06/20 History atorvastatin 20 mg tablet 20 mg PO QAM tab 06/10/19 04/06/20 History lorazepam 1 mg tablet 1 mg PO HS PRN tab 06/10/19 04/06/20 History aspirin 81 mg tablet,delayed 81 mg PO QAM 12/16/19 04/06/20 History release (Aspir-) meloxicam 15 mg tablet 15 mg PO DAILY PRN #30 tab 08/04/20 Rx Patient History Medical History (Updated 03/23/22 @ 08:11 by Paul Ortez MD) Anxiety Carpal tunnel syndrome Depression Hearing deficit Left Hypercholesteremia Hypertension Osteoarthritis Peripheral vascular disease RLE stent (Dr Acevedo/2017) Surgical History History of carpal tunnel release Left CTR: 12/22/19: MAC sedation at [facility] [place] History of colonoscopy Hx of excision of epidermal inclusion cyst Dr. 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 Lying supine in bed. HEENT: Unremarkable Neck: No jugular venous distention, carotid pulses are normal and equal bilaterally without bruits. Pulmonary: Clear to auscultation bilaterally. Cardiac: Regular rhythm with no murmur, gallop or rub. Abdomen: Soft, nontender with normal bowel sounds. Extremities: No edema. Distal pulses intact. Right groin pacemaker implantation site stable. Neurologic: No focal findings. Gait was not tested. Skin: No rash, ecchymoses or petechiae. Results & Data ([facility]) Vital Signs (Past 12 Hours) Vital Signs Temp Pulse Pulse Resp BP BP Pulse Ox 03/22/22 18:10 37.2 C 80 20 111/88 93 03/22/22 17:36 80 16 125/75 98 03/22/22 17:26 80 16 115/84 98 03/22/22 17:09 80 16 98/80 L 98 03/22/22 16:55 80 16 115/83 98 03/22/22 16:40 80 16 132/89 98 03/22/22 16:05 135/107 H 03/22/22 15:47 36.4 C L 80 28 H 90 Laboratory Results Cardiac Enzymes 03/22/22 03/23/22 Range/Units 16:00 02:25 AST 23 (13-39) U/L Troponin I High Sens 1158.8 H* 1449.8 H* D (0-20) pg/ml Coagulation 03/22/22 03/23/22 Range/Units 16:00 02:25 PT 10.9 (9.0-12.0) Seconds APTT 25.9 53.5 H* (21.0-31.0) Seconds CBC 03/22/22 03/23/22 Range/Units 16:00 02:25 WBC 16.71 H 13.29 H (4.8-10.8) K/uL RBC 4.73 4.55 L (4.7-6.1) M/uL Hgb 14.6 14.5 (14.0-18.0) g/dL Hct 43.5 41.5 L (42-52) % Plt Count 300 248 (130-400) K/uL Neut # (Auto) 12.71 H 9.01 H (1.4-6.5) K/uL Lymph # (Auto) 2.87 2.87 (1.2-3.4) K/uL Churchill # (Auto) 0.88 H 1.31 H (0.11-0.59) K/uL Eos # (Auto) 0.13 0.06 (0-0.5) K/uL Baso # (Auto) 0.03 0.01 (0-0.2) K/uL Comprehensive Metabolic Panel 03/22/22 03/23/22 Range/Units 16:00 02:25 Sodium 134 L 136 (136-145) mmol/L Potassium 5.1 4.1 (3.5-5.1) mmol/L Chloride 101 104 (98-107) mmol/L Carbon Dioxide 23 25 (21-32) mmol/L BUN 17 18 (6-23) mg/dl Creatinine 1.40 0.97 D (0.6-1.4) mg/dl Glucose 221 H 102 H (70-99(Fasting)) mg/dl Calcium 9.0 8.7 (8.5-10.1) mg/dl AST 23 (13-39) U/L ALT 13 (7-52) U/L Alkaline Phosphatase 76 (34-104) U/L Total Protein 6.9 (6.0-8.3) gm/dl Albumin 3.9 (3.4-5.0) gm/dl Intake and Output 03/22/22 03/23/22 03/23/22 22:59 06:59 14:59 Intake Total 500 / 824 324 / 824 Output Total 550 / 550 Balance 500 / 274 -226 / 274 Intake: IV 500 / 824 324 / 824 Heparin Sodium/Dextrose 25,000 324 / 324 units In 500 ml @ 1,500 UNITS/ HR 30 mls/hr IV .[id number] RADHAMES Rx #:[id number] Sodium Chloride 0.9% 500 ml @ 500 / 500 999 mls/hr IV .Q31M STA Rx#: [id number] Output: Urine 550 / 550 Other: Weight 100 kg Weight Measurement Method Patient Lift Scale Diagnostic Findings Telemetry: Ventricular paced rhythm with occasional narrow beats suggestive of AV conduction PG Care Time/CCT Total # of Minutes Spent Total Time Spent with Patient: Total time spent is greater than 50% in coordination of care (as documented) at patient's floor/unit and/or counseling patient: Coding Level of Care Code 47607 Initial Inpt Care Lvl 3 Diagnoses CHB (complete heart block) I44.2 Syncope R55 Syncope type: unspecified Headache R51.9 (1) Syncope Syncope type: unspecified Qualified Code(s): R55 - Syncope and collapse
[2022-03-22] MEDS: HEPARIN SODIUM/DEXTROSE 25,000 UNITS/500 ML BAG IV SCH (20:05)
[2022-03-22] MEDS ORDERED: HEPARIN SOD 5,000 UNIT/0.5 ML VIAL SQ SCH (21:00)
--- NOTE | 2022-03-22 21:32 | History & Physical Report ---
Date of Service March 22, 2022 Assessment & Plan (1) CHB (complete heart block): Plan: Patient admitted for complete heart block Required tempoorary pacemaker. will require permament pacemaker. this will be done on friday. remain in the ICU (2) Syncope: Plan: caused by problem ! (3) Acute non-ST elevation myocardial infarction (NSTEMI): Plan: elevated trop. will heparinize patient. started on day of admission. appreciate input from cardio. Admission and Anticipated Discharge Date Admission Date: March 22, 2022 History of Present Illness Chief Complaint: syncope Primary Care Provider: Christopher Mercer MD This is a 71 yo male who comes in with sudden severe headache and presyncope. Patient then passed out. Patient was brought in to the hospital with a heart block. During his time in the ER, he was found to be in asystole, and required temporary external pacer. Admission called and patient sent to [facility] for temporary pacemanker placement. Patient is now stable and will be admitted to ICU. Allergies Allergy/AdvReac Type Severity Reaction Status Date / Time No Known Allergies Allergy Verified 04/06/20 14:09 Home Medications Medication Instructions Recorded Confirmed Type atenolol 50 mg tablet 50 mg PO QAM tab 06/10/19 04/06/20 History atorvastatin 20 mg tablet 20 mg PO QAM tab 06/10/19 04/06/20 History lorazepam 1 mg tablet 1 mg PO HS PRN tab 06/10/19 04/06/20 History aspirin 81 mg tablet,delayed 81 mg PO QAM 12/16/19 04/06/20 History release (Aspir-) meloxicam 15 mg tablet 15 mg PO DAILY PRN #30 tab 08/04/20 Rx Past Med/Surg History Medical History Anxiety Carpal tunnel syndrome Depression Hearing deficit Left Hypercholesteremia Hypertension Osteoarthritis Peripheral vascular disease RLE stent (Dr Acevedo/2017) Surgical History History of carpal tunnel release Left CTR: 12/22/19: MAC sedation at [facility] [place] History of colonoscopy Hx of excision of epidermal inclusion cyst Dr. 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 [employer] Feels Safe at Home: Yes Assistive Devices: Glasses Review of Systems Constitutional: no fever Eyes: no blind spots Ear, Nose, Mouth, Throat: no ear pain Respiratory: no cough Cardiovascular: no chest pain Gastrointestinal: no abdominal pain Genitourinary: no dysuria Musculoskeletal: no back pain Integumentary: no acne Neurologic: no gait abnormality Psychiatric: no behavioral changes Endocrine: no fatigue Hematologic / Lymphatic: no easy bleeding Allergy / Immunological: no GI upset with certain foods Physical Exam Constitutional: WD/WN, vitals as above Eyes: PERRL, conjunctivae normal, anicteric sclerae ENMT: external ear and nose normal, oropharynx normal Neck: trachea midline, no thyromegaly Cardiovascular: RRR, no murmur, no edema Gastrointestinal (Abdomen): normal bowel sounds, soft, nontender, no hepatosplenomegaly Musculoskeletal: no cyanosis or clubbing, extremities motor strength 5/5 Neurologic: PERRL, EOMI, accommodation nl, no face palsy, no dysarthria Lymphatic: no cervical or axillary lymphadenopathy Results & Data Results & Data ([facility]) Vital Signs (Past 12 Hours) Vital Signs Temp Pulse Pulse Resp BP BP Pulse Ox 03/22/22 18:10 37.2 C 80 20 111/88 93 03/22/22 17:36 80 16 125/75 98 03/22/22 17:26 80 16 115/84 98 03/22/22 17:09 80 16 98/80 L 98 03/22/22 16:55 80 16 115/83 98 03/22/22 16:40 80 16 132/89 98 03/22/22 16:05 135/107 H 03/22/22 15:47 36.4 C L 80 28 H 90 PG Care Time/CCT Total # of Minutes Spent Total Time Spent with Patient: Total time spent is greater than 50% in coordination of care (as documented) at patient's floor/unit and/or counseling patient: Coding Level of Care Code 40879 Initial Inpt Care Lvl 3 Diagnoses CHB (complete heart block) I44.2 Syncope R55 Syncope type: unspecified Acute non-ST elevation myocardial infarction (NSTEMI) I21.4 (1) Syncope Syncope type: unspecified Qualified Code(s): R55 - Syncope and collapse
[2022-03-23] MEDS ORDERED: ACETAMINOPHEN 500 MG TAB PO PRN (00:12)
[2022-03-23 02:43] LABS: Basophils # (auto) 0.01 K/uL (0-0.2); Basophils % (auto) 0.1 %; Eosinophils # (auto) 0.06 K/uL (0-0.5); Eosinophils % (auto) 0.5 %; Hematocrit (blood only) 41.5 % (42-52); Hemoglobin 14.5 g/dL (14.0-18.0); Immature Granulocytes # (auto) 0.03 K/uL (0.00-0.02); Immature Granulocytes % (auto) 0.2 %; Lymphocytes # (auto) 2.87 K/uL (1.2-3.4); Lymphocytes % (auto) 21.6 %; Mean Corpuscular Hemoglobin 31.9 pg (25-34); Mean Corpuscular Hgb Conc 34.9 g/dL (32-36); Mean Corpuscular Volume 91.2 fL (80-100); Mean Platelet Volume 9.9 fL (7.4-10.4); Monocytes # (auto) 1.31 K/uL (0.11-0.59); Monocytes % (auto) 9.9 %; Neutrophils # (auto) 9.01 K/uL (1.4-6.5); Neutrophils % (auto) 67.7 %; Platelet Count 248 K/uL (130-400); RDW Coefficient of Variation 12.4 % (11.5-14.5); RDW Standard Deviation 41.8 fL (36.4-46.3); Red Blood Count 4.55 M/uL (4.7-6.1); White Blood Count 13.29 K/uL (4.8-10.8)
[2022-03-23 03:02] LABS: BUN Creatinine Ratio 18.6 (10-20); Calcium 8.7 mg/dl (8.5-10.1); Creatinine Clr Calc Pharmacy 80.2 ml/min; Est GFR (Non-African American) 77.7 ml/min; Partial Thromboplastin Ratio 1.9; Phosphorus 3.8 mg/dl (2.5-4.9); Potassium 4.1 mmol/L (3.5-5.1)
[2022-03-23 03:08] LABS: Partial Thromboplastin Time 53.5 Seconds (21.0-31.0)
--- NOTE | 2022-03-23 06:38 | Critical Care Progress Note ---
Date of Service March 23, 2022 Assessment & Plan (1) CHB (complete heart block): Plan: ICU Assessment and Plans Reason Critically Ill: 71 yo M admitted to ICU for monitoring after temporary transvenous pacemaker placement due to complete heart block, awaiting permanent pacemaker insertion. Neuro - CAM ICU: NEGATIVE Sedation: None Analgesia: None, no pain at present Fully alert and oriented Cardiac/Vascular - Complete heart block -S/p temporary transvenous pacemaker insertion on 03/22 -Cardiology planning permanent pacemaker implantation on 03/25 -EKG 03/23 demonstrating return to sinus rhythm, pacer decreased 80 to 50 due to intrinsic conduction -Hemodynamically stable, normotensive -Echocardiogram done today, pending read Elevated troponin -Troponin 12 uptrending to 14.5 today, secondary to NSTEMI vs demand ischemia -EKG 03/22 does not suggest ischemic injury and no active anginal symptoms -Continue heparin drip -Continue trending troponin Aneurysm evaluation -Supposed to receive outpatient MRI to evaluate for cerebral aneurysm -Will most likely have to get this done after discharge as outpatient Respiratory - No known respiratory disease Saturating well on RA GI - Diet- heart healthy RENAL/ELECTROLYTES - Hypomagnesemia -Mg 2.0, repleting to have Mg > 2.2 in pt with arrhythmia + cardiovascular disease Hypokalemia -K 4.1, repleting to have K > 4.5 in pt with arrhythmia + cardiovascular disease - No concerns at this time ENDO - No known history of diabetes Glucose 221 on admission likely due to stress hyperglycemia ICU hyperglycemic protocol HEME - Hgb 14.5, stable Trend CBC ID - WBC 16.7 downtrend to 13.3, afebrile No infectious symptoms at this point, low concern for infection Leukocytosis likely secondary to postoperative state LINES/IV ACCESS - PIVs intact. DVT PROPHYLAXIS - Heparin drip Disposition: ICU (2) Syncope: Admission and Anticipated Discharge Date Admission Date: March 22, 2022 Supervising Physician Co-Signing Physician Notes Dr. Murray was resident physician during care of patient. I separately evaluated patient for mortensen portions of the history and the exam. I was present during the critical portion of medical decision making, and I discussed the case with the resident. I generally agree with the findings and plan. Discussed with cardiology/electrophysiology. Patient's normal sinus rhythm and spontaneously conducting, pacer set for backup rate. Will attempt to mildly increase potassium and magnesium. Creatinine is improved from EVERARDO yesterday. Continued observation in ICU with transvenous pacer placed. Anticipate permanent pacemaker placement Friday with cardiology. Subjective No acute events overnight. Pt feels well, denies chest pain, dyspnea, lightheadedness, nausea, dizziness. Does endorse some positional mild back pain that improves with rest and laying on his side, states he's had this before hospitalization as well. Review of Systems Review of Systems: Per subjective Physical Exam Physical Exam: GENERAL - Appears stated age, no acute distress. Communicating with provider and answering questions appropriately. SKIN - No rashes. HEAD - NC/AT. EYES - PERRL with EOMI b/l. Anicteric sclerae. EARS - No deformities of external structures b/l NOSE - Midline. No epistaxis or purulent drainage. Septum midline without deviation. MOUTH/OROPHARYNX - No perioral cyanosis. Buccal mucosa pink and moist. NECK - supple to palpation, no JVD b/l LUNGS - Chest wall rise and fall symmetric without accessory muscle use or intercostal retractions. CTAB of all lung zambrano. No wheezes, rales, or rhonchi appreciated. CARDIAC - Paced sinus rhythm with normal S1/S2. No murmurs appreciated. No bruits. ABDOMEN - Soft, nontender, nondistended. Normal bowel sounds. No guarding or rebound. No hepatosplenomegaly or ascites. EXTREMITIES - No clubbing or peripheral cyanosis. No peripheral edema present. Distal pulses of LE intact b/l. Normal bulk and tone of b/l UE and LE NEUROLOGIC - Cranial nerves II through XII grossly intact PSYCH - Grossly alert and oriented, cooperates fully with examiner Results & Data Results & Data ([facility]) Vital Signs (Past 12 Hours) Vital Signs Temp Pulse Resp BP Pulse Ox 03/23/22 05:09 37.0 C 03/23/22 01:40 83 22 91 03/23/22 01:30 81 22 91 03/23/22 01:20 81 22 91 03/23/22 01:10 83 10 L 93 03/23/22 01:05 79 21 100/75 93 03/23/22 01:02 80 21 91 03/23/22 01:00 80 20 91 03/23/22 00:50 81 15 95 03/23/22 00:40 80 14 93 03/23/22 00:30 80 15 93 03/23/22 00:20 81 15 93 03/23/22 00:10 80 20 93 03/23/22 00:05 80 29 H 91/59 L 94 03/23/22 00:03 81 19 93 03/23/22 00:01 83 19 93 03/23/22 00:00 80 20 93 03/22/22 23:50 81 19 94 03/22/22 23:40 80 18 93 03/22/22 23:30 79 16 94 03/22/22 23:20 80 14 93 03/22/22 23:10 81 17 94 03/22/22 23:05 37.2 C 03/22/22 23:02 83 20 87/60 L 93 03/22/22 23:00 83 21 78/56 L 92 03/22/22 22:50 80 20 92 03/22/22 22:40 80 19 92 03/22/22 22:30 82 13 96 03/22/22 22:20 81 21 93 03/22/22 22:10 83 19 92 03/22/22 22:00 80 18 94 03/22/22 21:50 81 13 93 03/22/22 21:40 80 17 94 03/22/22 21:30 80 20 92 03/22/22 21:20 80 18 92 03/22/22 21:10 80 17 95 03/22/22 21:01 80 18 107/56 L 96 03/22/22 21:00 80 18 94 03/22/22 20:50 80 13 94 03/22/22 20:40 81 17 95 03/22/22 20:30 80 9 L 93 03/22/22 20:20 79 20 95 03/22/22 20:10 80 18 95 03/22/22 20:01 80 26 H 102/57 L 96 03/22/22 20:00 36.9 C 80 21 96 03/22/22 19:50 80 20 95 03/22/22 19:40 80 23 95 03/22/22 19:30 80 18 96 03/22/22 19:20 80 26 H 94 03/22/22 19:10 80 17 94 03/22/22 19:00 80 28 H 96 Resident Activity Tracking Resident Involvement: Resident Care Provided Care Provided: Adult Hospital Medicine (1) Syncope Syncope type: unspecified Qualified Code(s): R55 - Syncope and collapse
--- NOTE | 2022-03-23 07:59 | Electrocardiogram Report ---
Test Reason : Blood Pressure : / mmHG Vent. Rate : 080 BPM Atrial Rate : 089 BPM P-R Int : 000 ms QRS Dur : 174 ms QT Int : 478 ms P-R-T Axes : 063 269 092 degrees QTc Int : 551 ms Poor data quality, interpretation may be adversely affected Sinus rhythm with complete heart block and Ventricular-paced rhythm Abnormal ECG When compared with ECG of 07-MAY-2016 00:25, Electronic ventricular pacemaker has replaced Sinus rhythm Confirmed by Paul Ortez ([id number]) on 03/23/2022 7:59:07 AM Referred By: Morgan Ham Confirmed By:Paul Ortez
[2022-03-23] MEDS: ATORVASTATIN 20 MG TAB PO SCH (09:02)
[2022-03-23] MEDS: ASPIRIN 81 MG ECTAB PO SCH (09:02)
--- NOTE | 2022-03-23 09:05 | Cardiology Progress Note ---
Date of Service March 23, 2022 Assessment & Plan (1) CHB (complete heart block): (2) Syncope: (3) Headache: (4) Elevated troponin: Plan: 1. Complete heart block: He presents in complete heart block, there is no obvious correctable cause, he does have an underlying right bundle branch block which would go along with this being primary conduction system disease. His symptoms were intermittent prior to admission which is consistent with him having intact AV conduction at times here. He was on beta-blockade which is a possibility although he was on a relatively low dose and that has not changed recently, that is on hold. A Lyme screen is negative. Currently a pacemaker is planned for Friday. I discussed the indications, procedure, risks and alternatives of pacemaker implantation with him and he understands and agrees to proceed. Consent obtained. I discussed sedation with him and he agrees. Consent obtained. 2. Syncope: His episodes of syncope are almost certainly due to transient complete heart block which is of relatively recent onset. 3. Headache: This is a very unusual symptom of heart block but perhaps that is the case, apparently his episodes of heart block are associated with headache. Whether his headache should be worked up further at this time I will leave to the primary service. He has had no further headaches since temporary pacemaker implantation and resolution of presyncope and syncope. 4. Elevated troponin: This is probably consistent with his presentation although it is fairly elevated, however he was certainly underperfused on presentation. Agree with trending troponins, he has no evidence of an ST se gment elevation acute infarction. Admission and Anticipated Discharge Date Admission Date: March 22, 2022 Subjective He is feeling well this morning, he is a little uncomfortable laying in bed but no chest discomfort, no shortness of breath and no further symptoms of headache, nausea and vomiting or lightheadedness or dizziness. Physical Exam Physical Exam: Constitutional: Alert, cooperative and in no distress following pacemaker implantation. Lying supine in bed. HEENT: Unremarkable Neck: No jugular venous distention, carotid pulses are normal and equal bilaterally without bruits. Pulmonary: Clear to auscultation bilaterally. Cardiac: Regular rhythm with no murmur, gallop or rub. Abdomen: Soft, nontender with normal bowel sounds. Extremities: No edema. Distal pulses intact. Right groin pacemaker implantation site stable. Neurologic: No focal findings. Gait was not tested. Skin: No rash, ecchymoses or petechiae. Results & Data ([facility]) Vital Signs (Past 12 Hours) Vital Signs Temp Pulse Resp BP Pulse Ox 03/23/22 05:09 37.0 C 03/23/22 01:40 83 22 91 03/23/22 01:30 81 22 91 03/23/22 01:20 81 22 91 03/23/22 01:10 83 10 L 93 03/23/22 01:05 79 21 100/75 93 03/23/22 01:02 80 21 91 03/23/22 01:00 80 20 91 03/23/22 00:50 81 15 95 03/23/22 00:40 80 14 93 03/23/22 00:30 80 15 93 03/23/22 00:20 81 15 93 03/23/22 00:10 80 20 93 03/23/22 00:05 80 29 H 91/59 L 94 03/23/22 00:03 81 19 93 03/23/22 00:01 83 19 93 03/23/22 00:00 80 20 93 03/22/22 23:50 81 19 94 03/22/22 23:40 80 18 93 03/22/22 23:30 79 16 94 03/22/22 23:20 80 14 93 03/22/22 23:10 81 17 94 03/22/22 23:05 37.2 C 03/22/22 23:02 83 20 87/60 L 93 03/22/22 23:00 83 21 78/56 L 92 03/22/22 22:50 80 20 92 03/22/22 22:40 80 19 92 03/22/22 22:30 82 13 96 03/22/22 22:20 81 21 93 03/22/22 22:10 83 19 92 03/22/22 22:00 80 18 94 03/22/22 21:50 81 13 93 03/22/22 21:40 80 17 94 03/22/22 21:30 80 20 92 03/22/22 21:20 80 18 92 03/22/22 21:10 80 17 95 Laboratory Results Cardiac Enzymes 03/22/22 03/23/22 Range/Units 16:00 02:25 AST 23 (13-39) U/L Troponin I High Sens 1158.8 H* 1449.8 H* D (0-20) pg/ml Coagulation 03/22/22 03/23/22 Range/Units 16:00 02:25 PT 10.9 (9.0-12.0) Seconds APTT 25.9 53.5 H* (21.0-31.0) Seconds CBC 03/22/22 03/23/22 Range/Units 16:00 02:25 WBC 16.71 H 13.29 H (4.8-10.8) K/uL RBC 4.73 4.55 L (4.7-6.1) M/uL Hgb 14.6 14.5 (14.0-18.0) g/dL Hct 43.5 41.5 L (42-52) % Plt Count 300 248 (130-400) K/uL Neut # (Auto) 12.71 H 9.01 H (1.4-6.5) K/uL Lymph # (Auto) 2.87 2.87 (1.2-3.4) K/uL [place] # (Auto) 0.88 H 1.31 H (0.11-0.59) K/uL Eos # (Auto) 0.13 0.06 (0-0.5) K/uL Baso # (Auto) 0.03 0.01 (0-0.2) K/uL Comprehensive Metabolic Panel 03/22/22 03/23/22 Range/Units 16:00 02:25 Sodium 134 L 136 (136-145) mmol/L Potassium 5.1 4.1 (3.5-5.1) mmol/L Chloride 101 104 (98-107) mmol/L Carbon Dioxide 23 25 (21-32) mmol/L BUN 17 18 (6-23) mg/dl Creatinine 1.40 0.97 D (0.6-1.4) mg/dl Glucose 221 H 102 H (70-99(Fasting)) mg/dl Calcium 9.0 8.7 (8.5-10.1) mg/dl AST 23 (13-39) U/L ALT 13 (7-52) U/L Alkaline Phosphatase 76 (34-104) U/L Total Protein 6.9 (6.0-8.3) gm/dl Albumin 3.9 (3.4-5.0) gm/dl Intake and Output 03/22/22 03/23/2203/23/22 22:59 06:59 14:59 Intake Total 500 / 824 324 / 824 Output Total 550 / 550 Balance 500 / 274 -226 / 274 Intake: IV 500 / 824 324 / 824 Heparin Sodium/Dextrose 25,000 324 / 324 units In 500 ml @ 1,500 UNITS/ HR 30 mls/hr IV .[id number] RADHAMES Rx #:[id number] Sodium Chloride 0.9% 500 ml @ 500 / 500 999 mls/hr IV .Q31M STA Rx#: [id number] Output: Urine 550 / 550 Other: Weight 100 kg Weight Measurement Method Patient Lift Scale Diagnostic Findings Pacemaker: He was pacing at 80 bpm however he did have intermittent intact AV conduction so I turned his pacer down to 50 and obtained an electrocardiogram. The pacer is working well. Electrocardiogram: Sinus rhythm with intact AV conduction this morning, right bundle branch block, ST-T abnormalities but no ST elevation. Chest x-ray: The temporary pacemaker is in good position at the apex. Does not look like there PG Care Time/CCT Total # of Minutes Spent Total Time Spent with Patient: Total time spent is greater than 50% in coordination of care (as documented) at patient's floor/unit and/or counseling patient: Coding Diagnoses CHB (complete heart block) I44.2 Syncope R55 Syncope type: unspecified Headache R51.9 Elevated troponin R77.8 (1) Syncope Syncope type: unspecified Qualified Code(s): R55 - Syncope and collapse
--- NOTE | 2022-03-23 09:09 | Billing Data ---
Date of Service March 22, 2022 Coding Level of Care Code Critical Care 1st - mins
[2022-03-23] MEDS ORDERED: POTASSIUM CHLORIDE CRTAB 20 MEQ TABCR PO STA (09:11)
--- NOTE | 2022-03-23 09:12 | Billing Data ---
Date of Service March 23, 2022 Coding Level of Care Code 16342 Subseq Hosp Care Lvl 3
--- NOTE | 2022-03-23 09:23 | XRay Report ---
XR chest 1V portable HISTORY: 71 years-old Male Temporary pacemaker acute atypical chest pain COMPARISON: Chest radiograph 04/27/2016 TECHNIQUE: Semierect AP view of the chest FINDINGS: The cardiac silhouette is enlarged. A temporary cardiac pacer is noted which courses from the IVC and distal tip overlying the expected location of the right ventricle. There is no pneumothorax or overt pulmonary edema. Trace pleural effusions are suggested. Subsegmental left basilar opacities. IMPRESSION: 1. Cardiomegaly with temporary cardiac pacer. 2. Questioned trace pleural effusions with left basilar atelectasis. 3. No pneumothorax. ACT 112: Negative or not required by law. The above report was generated using voice recognition software. It may contain grammatical, syntax o r spelling errors. Electronically signed by: Ajay Castillo M.D. 03/23/2022 9:21 AM
--- NOTE | 2022-03-23 11:34 | XCELERA ---
[id number]
[2022-03-23] MEDS: HEPARIN SODIUM/DEXTROSE 25,000 UNITS/500 ML BAG IV SCH (13:16)
[2022-03-23 15:00] LABS: Partial Thromboplastin Ratio 1.9
[2022-03-23 15:12] LABS: Partial Thromboplastin Time 52.1 Seconds (21.0-31.0)
[2022-03-23] MEDS: MAGNESIUM OXIDE 400 MG TAB PO SCH (21:01)
--- NOTE | 2022-03-23 21:51 | Hospitalist Progress Note ---
Date of Service March 23, 2022 Assessment & Plan (1) CHB (complete heart block): Plan: Patient admitted for complete heart block Required tempoorary pacemaker. will obtain a permanent pacemaker likely on Friday. remain in the ICU (2) Syncope: Plan: caused by problem ! (3) Acute non-ST elevation myocardial infarction (NSTEMI): Plan: elevated trop. will heparinize patient. started on day of admission. high sen. trop peaked at 1499 appreciate input from cardio. Admission and Anticipated Discharge Date Admission Date: March 22, 2022 Subjective Patient reports no new symptoms. Review of Systems Review of Systems: All systems reviewed & are unremarkable except as noted in HPI & below Physical Exam Constitutional: WD/WN, vitals as above Eyes: PERRL, conjunctivae normal, anicteric sclerae ENMT: external ear and nose normal, oropharynx normal Neck: trachea midline, no thyromegaly Cardiovascular: RRR, no murmur, no edema Gastrointestinal (Abdomen): normal bowel sounds, soft, nontender, no hepatosplenomegaly Musculoskeletal: no cyanosis or clubbing, extremities motor strength 5/5 Neurologic: PERRL, EOMI, accommodation nl, no face palsy, no dysarthria Lymphatic: no cervical or axillary lymphadenopathy Results & Data Results & Data ([facility]) Vital Signs (Past 12 Hours) Vital Signs Temp Pulse Resp BP Pulse Ox 03/23/22 20:43 37 C 03/23/22 20:40 63 22 92 03/23/22 20:30 63 25 H 92 03/23/22 20:20 67 24 92 03/23/22 20:10 68 27 H 93 03/23/22 20:00 68 19 120/61 92 03/23/22 19:50 68 20 94 03/23/22 19:40 66 18 94 03/23/22 19:30 78 22 92 03/23/22 19:20 70 32 H 95 03/23/22 19:10 77 14 95 03/23/22 19:00 70 29 H 118/72 94 03/23/22 18:50 75 26 H 94 03/23/22 18:40 74 37 H 96 03/23/22 18:38 36.8 C 03/23/22 18:30 78 17 95 03/23/22 18:20 73 33 H 95 03/23/22 18:10 80 18 96 03/23/22 18:00 74 22 113/79 95 03/23/22 17:00 71 15 121/83 95 03/23/22 16:00 60 20 102/59 L 91 03/23/22 15:04 36.8 C 03/23/22 15:00 67 15 123/63 94 03/23/22 14:00 66 20 115/59 L 94 03/23/22 13:00 66 22 101/48 L 93 03/23/22 12:01 70 20 119/68 95 03/23/22 11:00 67 18 106/60 94 03/23/22 10:00 65 22 135/84 91 PG Care Time/CCT Total # of Minutes Spent Total Time Spent with Patient: Total time spent is greater than 50% in coordination of care (as documented) at patient's floor/unit and/or counseling patient: Coding Level of Care Code 15859 Subseq Hosp Care Lvl 3 Diagnoses CHB (complete heart block) I44.2 Syncope R55 Syncope type: unspecified Acute non-ST elevation myocardial infarction (NSTEMI) I21.4 (1) Syncope Syncope type: unspecified Qualified Code(s): R55 - Syncope and collapse
[2022-03-24 03:49] LABS: Basophils # (auto) 0.02 K/uL (0-0.2); Basophils % (auto) 0.2 %; Eosinophils # (auto) 0.22 K/uL (0-0.5); Eosinophils % (auto) 2.1 %; Hematocrit (blood only) 42.3 % (42-52); Hemoglobin 14.6 g/dL (14.0-18.0); Immature Granulocytes # (auto) 0.05 K/uL (0.00-0.02); Immature Granulocytes % (auto) 0.5 %; Lymphocytes # (auto) 2.98 K/uL (1.2-3.4); Lymphocytes % (auto) 28.5 %; Mean Corpuscular Hemoglobin 31.7 pg (25-34); Mean Corpuscular Hgb Conc 34.5 g/dL (32-36); Mean Platelet Volume 10.1 fL (7.4-10.4); Monocytes # (auto) 1.05 K/uL (0.11-0.59); Neutrophils # (auto) 6.14 K/uL (1.4-6.5); Neutrophils % (auto) 58.7 %; Platelet Count 235 K/uL (130-400); RDW Coefficient of Variation 12.3 % (11.5-14.5); RDW Standard Deviation 41.5 fL (36.4-46.3); White Blood Count 10.46 K/uL (4.8-10.8)
[2022-03-24 04:01] LABS: BUN Creatinine Ratio 20.2 (10-20); Calcium 8.7 mg/dl (8.5-10.1); Creatinine Clr Calc Pharmacy 92.7 ml/min; Est GFR (African American) 101.4 ml/min; Est GFR (Non-African American) 87.5 ml/min; Potassium 4.1 mmol/L (3.5-5.1)
[2022-03-24 04:08] LABS: Partial Thromboplastin Ratio 2.1
[2022-03-24 04:09] LABS: Partial Thromboplastin Time 56.4 Seconds (21.0-31.0)
[2022-03-24] MEDS: HEPARIN SODIUM/DEXTROSE 25,000 UNITS/500 ML BAG IV SCH (04:40)
[2022-03-24] MEDS: ATORVASTATIN 20 MG TAB PO SCH (08:49)
[2022-03-24] MEDS: ASPIRIN 81 MG ECTAB PO SCH (08:49)
--- NOTE | 2022-03-24 09:45 | Critical Care Progress Note ---
Date of Service March 24, 2022 Assessment & Plan (1) CHB (complete heart block): Plan: ICU Assessment and Plans Reason Critically Ill: 71 yo M admitted to ICU for monitoring after temporary transvenous pacemaker placement due to complete heart block, awaiting permanent pacemaker insertion. Neuro - CAM ICU: NEGATIVE Sedation: None Analgesia: None, no pain at present Fully alert and oriented Cardiac/Vascular - Complete heart block -S/p temporary transvenous pacemaker insertion on 03/22 -Cardiology tentatively planning permanent pacemaker implantation on 03/25 -Hemodynamically stable, normotensive -Troponin decreasing -EKG does not suggest ischemic injury and no active anginal symptoms Respiratory - No known respiratory disease Saturating well on RA GI - Diet- heart healthy -N.p.o. after midnight RENAL/ELECTROLYTES - Mild hyponatremia: resolved Trend BMP - No concerns at this time ENDO - No known history of diabetes Glucose 221 on admission likely due to stress hyperglycemia ICU hyperglycemic protocol HEME - Hgb 14.6, stable Trend CBC ID - LINES/IV ACCESS - PIVs intact. DVT PROPHYLAXIS - Heparin infusion, hold in the AM for pacer palcement Disposition: ICU (2) Syncope: Admission and Anticipated Discharge Date Admission Date: March 22, 2022 Subjective Uncomfortable from sitting in bed, no chest pain or shortness of breath. Physical Exam Physical Exam: General: Alert. nontoxic. Skin: Warm, dry, Head: Atraumatic Ears, nose, mouth and throat: airway patent Cardiovascular: Normal peripheral perfusion, normal sinus rhythm on vehicle monitor technician Respiratory: no respiratory distress Gastrointestinal: Non distended Musculoskeletal: No deformity Results & Data Results & Data ([facility]) Vital Signs (Past 12 Hours) Vital Signs Temp Pulse Resp BP Pulse Ox 03/24/22 04:10 62 21 92 03/24/22 04:00 64 20 127/69 93 03/24/22 03:50 61 20 93 03/24/22 03:40 57 L 14 90 03/24/22 03:30 60 21 92 03/24/22 03:20 59 L 20 92 03/24/22 03:10 63 18 03/24/22 03:00 67 14 133/70 03/24/22 02:50 69 14 03/24/22 02:40 62 14 94 03/24/22 02:30 64 10 L 94 03/24/22 02:20 68 11 L 03/24/22 02:10 67 16 95 05/08/22 02:00 68 14 133/79 95 03/24/22 01:50 70 7 L 94 03/24/22 01:40 66 18 95 03/24/22 01:30 63 20 92 03/24/22 01:20 60 23 90 03/24/22 01:10 64 17 90 03/24/22 01:00 63 21 117/70 90 03/24/22 00:50 62 21 90 03/24/22 00:40 65 19 92 03/24/22 00:30 74 17 94 03/24/22 00:20 68 15 94 03/24/22 00:14 37.1 C 03/24/22 00:10 68 12 95 03/24/22 00:01 71 23 141/80 H 94 03/24/22 00:00 74 19 94 03/23/22 23:50 69 16 94 03/23/22 23:40 65 21 92 03/23/22 23:30 64 22 89 L 03/23/22 23:20 63 22 92 03/23/22 23:10 62 25 H 92 03/23/22 23:00 62 23 124/62 91 03/23/22 22:50 63 22 92 03/23/22 22:40 74 21 96 03/23/22 22:30 65 20 93 03/23/22 22:20 64 19 90 03/23/22 22:10 64 16 91 03/23/22 22:00 65 17 114/61 92 03/23/22 21:50 70 15 95 Critical Care Results & Data Vital Signs (Past 12 Hours) Vital Signs Temp Pulse Resp BP Pulse Ox 03/24/22 04:10 62 21 92 03/24/22 04:00 64 20 127/69 93 03/24/22 03:50 61 20 93 03/24/22 03:40 57 L 14 90 03/24/22 03:30 60 21 92 03/24/22 03:20 59 L 20 92 03/24/22 03:10 63 18 03/24/22 03:00 67 14 133/70 03/24/22 02:50 69 14 03/24/22 02:40 62 14 94 03/24/22 02:30 64 10 L 94 03/24/22 02:20 68 11 L 05/08/22 02:10 67 16 95 03/24/22 02:00 68 14 133/79 95 03/24/22 01:50 70 7 L 94 03/24/22 01:40 66 18 95 03/24/22 01:30 63 20 92 03/24/22 01:20 60 23 90 03/24/22 01:10 64 17 90 03/24/22 01:00 63 21 117/70 90 03/24/22 00:50 62 21 90 03/24/22 00:40 65 19 92 03/24/22 00:30 74 17 94 03/24/22 00:20 68 15 94 03/24/22 00:14 37.1 C 03/24/22 00:10 68 12 95 03/24/22 00:01 71 23 141/80 H 94 03/24/22 00:00 74 19 94 03/23/22 23:50 69 16 94 03/23/22 23:40 65 21 92 03/23/22 23:30 64 22 89 L 03/23/22 23:20 63 22 92 03/23/22 23:10 62 25 H 92 03/23/22 23:00 62 23 124/62 91 03/23/22 22:50 63 22 92 03/23/22 22:40 74 21 96 03/23/22 22:30 65 20 93 03/23/22 22:20 64 19 90 03/23/22 22:10 64 16 91 03/23/22 22:00 65 17 114/61 92 03/23/22 21:50 70 15 95 Lab & Micro Results (Past 24 Hours) RBC 4.60 M/uL (4.7-6.1) L 03/24/22 WBC 10.46 K/uL (4.8-10.8) 03/24/22 Hgb 14.6 g/dL (14.0-18.0) 03/24/22 Hct 42.3 % (42-52) 03/24/22 MCV 92.0 fL (80-100) 03/24/22 MCH 31.7 pg (25-34) 03/24/22 MCHC 34.5 g/dL (32-36) 03/24/22 RDW Standard Deviation 41.5 fL (36.4-46.3) 03/24/22 RDW Coefficient of Variation 12.3 % (11.5-14.5) 03/24/22 Plt Count 235 K/uL (130-400) 03/24/22 MPV 10.1 fL (7.4-10.4) 03/24/22 Neutrophils (%) (Auto) 58.7 % 03/24/22 Lymphocytes (%) (Auto) 28.5 % 03/24/22 Monocytes # (Auto) 1.05 K/uL (0.11-0.59) H 03/24/22 Eosinophils # (Auto) 0.22 K/uL (0-0.5) 03/24/22 Immature Granulocyte % (Auto) 0.5 % 03/24/22 Neutrophils # (Auto) 6.14 K/uL (1.4-6.5) 03/24/22 Lymphocytes # (Auto) 2.98 K/uL (1.2-3.4) 03/24/22 Monocytes # (Auto) 1.05 K/uL (0.11-0.59) H 03/24/22 Eosinophils # (Auto) 0.22 K/uL (0-0.5) 03/24/22 Basophils # (Auto) 0.02 K/uL (0-0.2) 03/24/22 Immature Granulocyte # (Auto) 0.05 K/uL (0.00-0.02) H 03/24/22 Na 136 mmol/L (136-145) 03/24/22 K 4.1 mmol/L (3.5-5.1) 03/24/22 Cl 105 mmol/L (98-107) 03/24/22 CO2 26 mmol/L (21-32) 03/24/22 Anion Gap 5 (3-11) 03/24/22 BUN 17 mg/dl (6-23) 03/24/22 Creatinine 0.84 mg/dl (0.6-1.4) 03/24/22 Estimated GFR ( Amer) 101.4 ml/min 03/24/22 Estimated GFR (Non-Af Amer) 87.5 ml/min 03/24/22 BUN/Creatinine Ratio 20.2 (10-20) H 03/24/22 Glu 102 mg/dl (70-99(Fasting)) H 03/24/22 Ca 8.7 mg/dl (8.5-10.1) 03/24/22 Calcium Level 8.7 mg/dl (8.5-10.1) 03/24/22 03:08 03/24/22 I & O Totals 24 Hours 03/23/22 03/24/22 03/25/22 06:59 06:59 06:59 Intake Total 824 / 824 2062.0 / 2062.0 Output Total 550 / 550 1500 / 1500 Balance 274 / 274 562.0 / 562.0 Cumulative 03/22/22 15:34 thru 03/24/22 06:48 Intake Total 2886.0 Output Total 2049 Balance 836.0 RT Ventilator Mngmt (Last Documented) Ventilator Ordered Settings Respiratory Rate 21 03/24/22 04:10 Ventilator - PT Measurements Respiratory Rate 21 Coding Level of Care Code 01737 Subseq Hosp Care Lvl 1 Diagnoses CHB (complete heart block) I44.2 Syncope R55 Syncope type: unspecified (1) Syncope Syncope type: unspecified Qualified Code(s): R55 - Syncope and collapse
--- NOTE | 2022-03-24 15:13 | Cardiology Progress Note ---
Date of Service March 24, 2022 Assessment & Plan (1) CHB (complete heart block): (2) Elevated troponin: (3) Dyslipidemia: Plan: ASSESSMENT/PLAN: 1. Complete heart block: No evidence of high-degree AV block for the past 24 hours. Temporary transvenous pacemaker in place via the right femoral vein. Scheduled for permanent pacemaker placement tomorrow with Dr. Ortez. 2. Elevated troponin: High sensitivity troponin peaked at 1499. No angina. This was in the setting of complete heart block with long pauses and syncope. Likely related to poor perfusion. Cannot exclude underlying CAD, especially with with wall motion abnormalities noted on echo. Recommend treating for underlying CAD. Continue aspirin 81 mg daily. Recommend high-intensity statin therapy. Beta-seferino can be resumed once permanent pacemaker in place. 3. Dyslipidemia: LDL not at goal if underlying CAD and given wall motion abnormalities on echo, would more aggressively manage his lipids. Recommend atorvastatin 80 mg daily. 4. Disposition: Dr. Ortez to resume his cardiology care tomorrow. Admission and Anticipated Discharge Date Admission Date: March 22, 2022 Subjective He denies syncope, near-syncope, chest pain, shortness of breath, orthopnea, palpitations, or bleeding. He is looking forward to having his temporary transvenous pacemaker removed so that he can be more mobile. He was alone in his hospital room. Review of systems: As above. Physical Exam Physical Exam: Gen.: No acute distress. Alert and oriented. HEENT: Anicteric sclera. Neck: Thick neck. Cardiac: PMI was nondisplaced. No ventricular heave. Regular. Normal S1-S2. No murmurs, rubs, or gallops. Pulmonary: Clear to auscultation bilaterally without wheezes, rales, or rhonchi. Abdomen: Soft, nontender, nondistended, with normoactive bowel sounds. No bruits noted. Extremities: 2+ radial pulses bilaterally. 2+ posterior tibialis pulses bilaterally. No edema or cyanosis. Psychiatric: Affect appears appropriate. Results & Data ([facility]) Vital Signs (Past 12 Hours) Vital Signs Temp Pulse Resp BP Pulse Ox Pulse Ox 03/24/22 14:00 77 14 95 03/24/22 13:50 72 25 H 95 03/24/22 13:40 71 25 H 95 03/24/22 13:30 79 28 H 95 03/24/22 13:20 77 26 H 95 03/24/22 13:10 77 28 H 94 03/24/22 13:00 71 24 116/58 L 93 03/24/22 12:50 82 27 H 92 03/24/22 12:40 74 27 H 92 03/24/22 12:30 76 24 93 03/24/22 12:20 81 18 99 03/24/22 12:10 78 18 95 03/24/22 12:00 36.8 C 78 25 H 155/91 H 96 03/24/22 11:50 82 23 94 03/24/22 11:40 77 25 H 96 03/24/22 11:30 72 25 H 96 03/24/22 11:20 72 26 H 95 03/24/22 11:10 73 13 95 03/24/22 11:00 73 5 L 140/78 95 03/24/22 10:50 71 16 94 03/24/22 10:40 64 15 92 03/24/22 10:30 63 21 93 03/24/22 10:20 64 20 92 03/24/22 10:10 65 21 92 03/24/22 10:00 69 27 H 127/72 94 03/24/22 09:50 75 26 H 96 03/24/22 09:40 77 17 93 03/24/22 09:30 73 8 L 93 03/24/22 09:20 73 23 95 03/24/22 09:10 71 15 95 03/24/22 09:00 76 15 96 03/24/22 08:50 76 35 H 95 03/24/22 08:40 77 22 96 03/24/22 08:30 80 25 H 96 03/24/22 08:20 80 23 95 03/24/22 08:10 71 18 95 03/24/22 08:00 36.8 C 71 7 L 139/88 94 94 03/24/22 07:50 73 23 95 03/24/22 07:40 79 21 95 03/24/22 07:30 76 23 95 03/24/22 07:20 67 17 94 03/24/22 07:10 68 16 94 03/24/22 07:01 66 21 135/81 94 03/24/22 07:00 64 16 94 03/24/22 04:10 62 21 92 03/24/22 04:00 64 20 127/69 93 03/24/22 03:50 61 20 93 03/24/22 03:40 57 L 14 90 03/24/22 03:30 60 21 92 03/24/22 03:20 59 L 20 92 03/24/22 03:10 63 18 Laboratory Results Laboratory Results - last 24 hr 03/23/22 03/23/22 03/23/22 13:41 13:43 18:31 WBC RBC Hgb Hct MCV MCH MCHC RDW Std Deviation RDW Coeff of Marco Antonio Plt Count MPV Immature Gran % (Auto) Neut % (Auto) Lymph % (Auto) [place] % (Auto) Eos % (Auto) Baso % (Auto) Neut # (Auto) Lymph # (Auto) [place] # (Auto) Eos # (Auto) Baso # (Auto) Immature Gran # (Auto) APTT 52.1 H* PTT Ratio 1.9 Sodium Potassium Chloride Carbon Dioxide Anion Gap BUN Creatinine Est Cr Clr Drug Dosing Est GFR ( Amer) Est GFR (Non-Af Amer) BUN/Creatinine Ratio Glucose POC Glucose 138 H Calcium Troponin I High Sens 1157.7 H* D 03/24/22 03/24/22 03/24/22 03:08 03:08 03:08 WBC 10.46 RBC 4.60 L Hgb 14.6 Hct 42.3 MCV 92.0 MCH 31.7 MCHC 34.5 RDW Std Deviation 41.5 RDW Coeff of Marco Antonio 12.3 Plt Count 235 MPV 10.1 Immature Gran % (Auto) 0.5 Neut % (Auto) 58.7 Lymph % (Auto) 28.5 [place] % (Auto) 10.0 Eos % (Auto) 2.1 Baso % (Auto) 0.2 Neut # (Auto) 6.14 Lymph # (Auto) 2.98 [place] # (Auto) 1.05 H Eos # (Auto) 0.22 Baso # (Auto) 0.02 Immature Gran # (Auto) 0.05 H APTT 56.4 H* PTT Ratio 2.1 Sodium 136 Potassium 4.1 Chloride 105 Carbon Dioxide 26 Anion Gap 5 BUN 17 Creatinine 0.84 Est Cr Clr Drug Dosing 92.7 Est GFR ( Amer) 101.4 Est GFR (Non-Af Amer) 87.5 BUN/Creatinine Ratio 20.2 H Glucose 102 H POC Glucose Calcium 8.7 Troponin I High Sens 03/24/22 12:14 WBC RBC Hgb Hct MCV MCH MCHC RDW Std Deviation RDW Coeff of Marco Antonio Plt Count MPV Immature Gran % (Auto) Neut % (Auto) Lymph % (Auto) [place] % (Auto) Eos % (Auto) Baso % (Auto) Neut # (Auto) Lymph # (Auto) [place] # (Auto) Eos # (Auto) Baso # (Auto) Immature Gran # (Auto) APTT PTT Ratio Sodium Potassium Chloride Carbon Dioxide Anion Gap BUN Creatinine Est Cr Clr Drug Dosing Est GFR ( Amer) Est GFR (Non-Af Amer) BUN/Creatinine Ratio Glucose POC Glucose 147 H Calcium Troponin I High Sens Diagnostic Findings Telemetry personally reviewed: He has not paced since the morning of 03/23/2022. Sinus rhythm on telemetry. No significant pause or high-grade block noted. Echo 03/23/2022: Normal LV size. EF 50-55%. Akinesis of the basal inferior and basal inferoseptal wall segments. Moderate concentric LVH. Mildly dilated RV with normal systolic function. Sclerotic aortic valve with trace regurgitation. Medications Administered Current Inpatient Medications Acetaminophen (Acetaminophen 500 Mg Tab) 1,000 mg PO Q6H PRN PRN Reason: Pain or Fever Stop: 04/22/22 00:11 Aspirin (Aspirin 81 Mg Ectab) 81 mg PO [facility] Stop: 04/22/22 08:59 Last Admin: 03/24/22 08:49 Dose: 81 mg Documented by: Atorvastatin Calcium (Atorvastatin 20 Mg Tab) [facility] [place] Stop: 04/22/22 08:59 Last Admin: 03/24/22 08:49 Dose: 20 mg Documented by: Heparin Sodium/Dextrose (Heparin Sodium/Dextrose) 25,000 units in 500 mls @ 30 mls/hr IV .[id number] [facility]; Protocol Stop: 03/25/22 00:01 Last Titration: 03/24/22 06:48 Dose: 1,500 units/hr, 30 mls/hr Documented by: Magnesium Oxide (Magnesium Oxide 400 Mg Tab) 400 mg PO QPM [facility] Stop: 04/22/22 20:59 Last Admin: 03/23/22 21:01 Dose: 400 mg Documented by: Miscellaneous (Icu Protocol For Hyperglycemia) 1 ea N/A PRN PRN; Protocol PRN Reason: Hyperglycemia Protocol Stop: 03/24/22 17:38 Miscellaneous (Stop Order [Heparin Drip]) 1 ea N/A Mo@0001 ONE Stop: 03/25/22 00:02 PG Care Time/CCT Total # of Minutes Spent Total Time Spent with Patient: Total time spent is greater than 50% in coordination of care (as documented) at patient's floor/unit and/or counseling patient: Coding Level of Care Code 77684 Subseq Hosp Care Lvl 3 Diagnoses CHB (complete heart block) I44.2 Elevated troponin R77.8 Dyslipidemia E78.5
--- NOTE | 2022-03-24 17:53 | Hospitalist Progress Note ---
Date of Service March 24, 2022 Assessment & Plan (1) CHB (complete heart block): Plan: Patient admitted for complete heart block Required tempoorary pacemaker. will obtain a permanent pacemaker tomorrow on Friday. remain in the ICU (2) Syncope: Plan: caused by problem ! (3) Acute non-ST elevation myocardial infarction (NSTEMI): Plan: elevated trop. will heparinize patient. started on day of admission. high sen. trop peaked at 1499 appreciate input from cardio. Admission and Anticipated Discharge Date Admission Date: March 22, 2022 Subjective Patient reports no new symptoms. Review of Systems Constitutional: no fever Eyes: no blind spots Ear, Nose, Mouth, Throat: no ear pain Respiratory: no cough Cardiovascular: no chest pain Gastrointestinal: no abdominal pain Genitourinary: no dysuria Musculoskeletal: no back pain Integumentary: no acne Neurologic: no gait abnormality Psychiatric: no behavioral changes Endocrine: no fatigue Hematologic / Lymphatic: no easy bleeding Allergy / Immunological: no GI upset with certain foods Physical Exam Constitutional: WD/WN, vitals as above Eyes: PERRL, conjunctivae normal, anicteric sclerae ENMT: external ear and nose normal, oropharynx normal Neck: trachea midline, no thyromegaly Cardiovascular: RRR, no murmur, no edema Gastrointestinal (Abdomen): normal bowel sounds, soft, nontender, no hepatosplenomegaly Musculoskeletal: no cyanosis or clubbing, extremities motor strength 5/5 Neurologic: PERRL, EOMI, accommodation nl, no face palsy, no dysarthria Lymphatic: no cervical or axillary lymphadenopathy Results & Data Results & Data ([facility]) Vital Signs (Past 12 Hours) Vital Signs Temp Pulse Resp BP Pulse Ox Pulse Ox 03/24/22 17:00 77 20 153/93 H 95 03/24/22 16:00 36.8 C 75 29 H 143/85 H 95 03/24/22 15:00 67 17 137/87 97 03/24/22 14:01 73 13 149/86 H 95 03/24/22 14:00 77 14 95 03/24/22 13:50 72 25 H 95 03/24/22 13:40 71 25 H 95 03/24/22 13:30 79 28 H 95 03/24/22 13:20 77 26 H 95 03/24/22 13:10 77 28 H 94 03/24/22 13:00 71 24 116/58 L 93 03/24/22 12:50 82 27 H 92 03/24/22 12:40 74 27 H 92 03/24/22 12:30 76 24 93 03/24/22 12:20 81 18 99 03/24/22 12:10 78 18 95 03/24/22 12:00 36.8 C 78 25 H 155/91 H 96 03/24/22 11:50 82 23 94 03/24/22 11:40 77 25 H 96 03/24/22 11:30 72 25 H 96 03/24/22 11:20 72 26 H 95 03/24/22 11:10 73 13 95 03/24/22 11:00 73 5 L 140/78 95 03/24/22 10:50 71 16 94 03/24/22 10:40 64 15 92 03/24/22 10:30 63 21 93 03/24/22 10:20 64 20 92 03/24/22 10:10 65 21 92 03/24/22 10:00 69 27 H 127/72 94 03/24/22 09:50 75 26 H 96 03/24/22 09:40 77 17 93 03/24/22 09:30 73 8 L 93 03/24/22 09:20 73 23 95 03/24/22 09:10 71 15 95 03/24/22 09:00 76 15 96 03/24/22 08:50 76 35 H 95 03/24/22 08:40 77 22 96 03/24/22 08:30 80 25 H 96 03/24/22 08:20 80 23 95 03/24/22 08:10 71 18 95 03/24/22 08:00 36.8 C 71 7 L 139/88 94 94 03/24/22 07:50 73 23 95 03/24/22 07:40 79 21 95 03/24/22 07:30 76 23 95 03/24/22 07:20 67 17 94 03/24/22 07:10 68 16 94 03/24/22 07:01 66 21 135/81 94 03/24/22 07:00 64 16 94 PG Care Time/CCT Total # of Minutes Spent Total Time Spent with Patient: Total time spent is greater than 50% in coordination of care (as documented) at patient's floor/unit and/or counseling patient: Coding Level of Care Code 81703 Subseq Hosp Care Lvl 2 Diagnoses CHB (complete heart block) I44.2 Syncope R55 Syncope type: unspecified Acute non-ST elevation myocardial infarction (NSTEMI) I21.4 (1) Syncope Syncope type: unspecified Qualified Code(s): R55 - Syncope and collapse
[2022-03-24] MEDS: MAGNESIUM OXIDE 400 MG TAB PO SCH (20:53)
--- NOTE | 2022-03-24 22:05 | Electrocardiogram Report ---
Test Reason : Blood Pressure : / mmHG Vent. Rate : 070 BPM Atrial Rate : 070 BPM P-R Int : 208 ms QRS Dur : 160 ms QT Int : 456 ms P-R-T Axes : 069 101 025 degrees QTc Int : 492 ms Normal sinus rhythm Right bundle branch block Abnormal ECG When compared with ECG of 22-MAR-2022 18:11, Ventricular pacing is no longer present Confirmed by Valerio Krishna ([id number]) on 03/24/2022 10:05:18 PM Referred By: Morgan Ham Confirmed By:Valerio Krishna
[2022-03-25] MEDS ORDERED: STOP ORDER [HEPARIN DRIP] ONE (00:01)
[2022-03-25 05:26] LABS: Basophils # (auto) 0.03 K/uL (0-0.2); Basophils % (auto) 0.3 %; Eosinophils # (auto) 0.29 K/uL (0-0.5); Eosinophils % (auto) 3.3 %; Immature Granulocytes # (auto) 0.05 K/uL (0.00-0.02); Immature Granulocytes % (auto) 0.6 %; Lymphocytes # (auto) 2.18 K/uL (1.2-3.4); Lymphocytes % (auto) 24.6 %; Mean Corpuscular Hemoglobin 30.9 pg (25-34); Mean Corpuscular Hgb Conc 34.1 g/dL (32-36); Mean Corpuscular Volume 90.7 fL (80-100); Monocytes # (auto) 0.94 K/uL (0.11-0.59); Monocytes % (auto) 10.6 %; Neutrophils # (auto) 5.38 K/uL (1.4-6.5); Neutrophils % (auto) 60.6 %; Platelet Count 244 K/uL (130-400); RDW Coefficient of Variation 12.3 % (11.5-14.5); RDW Standard Deviation 41.1 fL (36.4-46.3); Red Blood Count 4.85 M/uL (4.7-6.1); White Blood Count 8.87 K/uL (4.8-10.8)
[2022-03-25 05:41] LABS: BUN Creatinine Ratio 14.1 (10-20); Calcium 8.8 mg/dl (8.5-10.1); Creatinine Clr Calc Pharmacy 91.6 ml/min; Est GFR (African American) 100.9 ml/min; Est GFR (Non-African American) 87.1 ml/min
[2022-03-25 05:55] LABS: Partial Thromboplastin Time 28.3 Seconds (21.0-31.0)
[2022-03-25] MEDS ORDERED: ceFAZolin 330 MG/ML 1 GM VIAL ONE (07:03)
[2022-03-25] MEDS ORDERED: MIDAZOLAM HCL 5 MG/ML 1 ML VIAL ONE (07:03)
[2022-03-25] MEDS ORDERED: fentaNYL citrate 100 MCG/2 ML VIAL ONE (07:03)
[2022-03-25] MEDS ORDERED: VANCOMYCIN HCL 1000MG/20ML VIAL ONE (07:05)
[2022-03-25] MEDS ORDERED: LIDOCAINE 1% LOCAL 20 ML VIAL ONE (07:05)
[2022-03-25] MEDS ORDERED: WATER, STERILE FOR INJ 10 ML VIAL ONE (07:05)
[2022-03-25] MEDS: HEPARIN SODIUM/DEXTROSE 25,000 UNITS/500 ML BAG IV SCH (07:39)
--- NOTE | 2022-03-25 08:03 | Pre Anesthesia Assessment ---
Date of Service March 25, 2022 Pre Sedation Assessment Vital Signs Temp Pulse Pulse Resp BP BP Pulse Ox 03/25/22 07:07 75 20 151/98 H 95 03/25/22 04:50 68 16 91 03/25/22 04:40 71 22 93 03/25/22 04:30 72 18 95 03/25/22 04:20 72 14 94 03/25/22 04:10 79 10 L 94 03/25/22 04:00 74 16 145/83 H 94 03/25/22 03:50 71 15 94 03/25/22 03:40 81 16 95 03/25/22 03:30 67 22 92 03/25/22 03:20 69 21 92 03/25/22 03:12 37.0 C 03/25/22 03:10 67 21 91 03/25/22 03:00 67 20 127/75 92 03/25/22 02:50 65 19 92 03/25/22 02:40 82 25 H 93 03/25/22 02:30 62 16 92 03/25/22 02:20 66 21 91 03/25/22 02:10 61 8 L 91 03/25/22 02:00 61 2 L 117/65 90 03/25/22 01:50 64 18 91 03/25/22 01:40 64 19 91 03/25/22 01:30 64 15 91 03/25/22 01:20 64 21 91 03/25/22 01:10 80 19 95 03/25/22 01:00 70 20 133/90 94 03/25/22 00:50 66 24 91 03/25/22 00:40 67 22 92 03/25/22 00:30 82 15 96 03/25/22 00:20 77 23 95 03/25/22 00:10 67 21 91 03/25/22 00:00 68 21 128/80 91 03/24/22 23:50 74 22 90 03/24/22 23:40 71 21 90 03/24/22 23:30 68 24 93 03/24/22 23:20 70 21 95 03/24/22 23:10 81 20 95 03/24/22 23:00 69 13 131/78 94 03/24/22 22:50 70 17 93 03/24/22 22:40 82 36 H 94 03/24/22 22:30 68 8 L 88 L 03/24/22 22:20 63 21 91 03/24/22 22:10 62 24 92 03/24/22 22:00 65 16 139/84 95 03/24/22 21:50 75 17 95 03/24/22 21:40 66 22 96 03/24/22 21:30 70 12 96 03/24/22 21:20 67 18 96 03/24/22 21:10 68 24 95 03/24/22 21:00 65 18 163/99 H 95 03/24/22 20:50 71 19 96 03/24/22 20:40 65 10 L 94 03/24/22 20:30 75 18 94 03/24/22 20:20 65 22 92 03/24/22 20:10 67 25 H 93 03/24/22 20:00 67 23 136/84 92 03/24/22 19:50 66 20 94 03/24/22 19:40 73 19 95 03/24/22 19:30 67 23 94 03/24/22 19:20 66 21 93 03/24/22 19:10 69 17 96 03/24/22 19:00 71 30 H 95 03/24/22 18:00 71 31 H 141/76 H 94 03/24/22 17:00 77 20 153/93 H 95 03/24/22 16:00 36.8 C 75 29 H 143/85 H 95 03/24/22 15:00 67 17 137/87 97 03/24/22 14:01 73 13 149/86 H 95 03/24/22 14:00 77 14 95 03/24/22 13:50 72 25 H 95 03/24/22 13:40 71 25 H 95 03/24/22 13:30 79 28 H 95 03/24/22 13:20 77 26 H 95 03/24/22 13:10 77 28 H 94 03/24/22 13:00 71 24 116/58 L 93 03/24/22 12:50 82 27 H 92 03/24/22 12:40 74 27 H 92 03/24/22 12:30 76 24 93 03/24/22 12:20 81 18 99 03/24/22 12:10 78 18 95 03/24/22 12:00 36.8 C 78 25 H 155/91 H 96 03/24/22 11:50 82 23 94 03/24/22 11:40 77 25 H 96 03/24/22 11:30 72 25 H 96 03/24/22 11:20 72 26 H 95 03/24/22 11:10 73 13 95 03/24/22 11:00 73 5 L 140/78 95 03/24/22 10:50 71 16 94 03/24/22 10:40 64 15 92 03/24/22 10:30 63 21 93 03/24/22 10:20 64 20 92 03/24/22 10:10 65 21 92 03/24/22 10:00 69 27 H 127/72 94 03/24/22 09:50 75 26 H 96 03/24/22 09:40 77 17 93 03/24/22 09:30 73 8 L 93 03/24/22 09:20 73 23 95 03/24/22 09:10 71 15 95 03/24/22 09:00 76 15 96 03/24/22 08:50 76 35 H 95 03/24/22 08:40 77 22 96 03/24/22 08:30 80 25 H 96 03/24/22 08:20 80 23 95 03/24/22 08:10 71 18 95 Cardiovascular RRR, no murmur, no edema Respiratory normal respiratory effort, lungs clear to auscultation Pre-Sedation Airway Assessment Smoking Status: Former smoker Hx Sleep Apnea: No Short, Thick Neck: Yes Thyromental Distance: > or= 3.5 Finger Breadths Oral Cavity: + WNL Mallampati Class: II ASA: ASA3 NPO Status Date of Last Intake of Fluids: 03/24/22 Time of Last Intake of Fluids: 23:30 Date of Last Intake of Solid Food: 03/24/22 Time of Last Intake of Solid Foods: 23:30 Procedure Planning Contraindications for Sedation: none Current Medications Reviewed: Yes Notes The planned sedation has been discussed with the patient. Informed Consent was obtained. I have identified the patient, determined the appropriateness of sedation and have assessed the patient immediately prior to the procedure. All medicine(s) and interventions are by my order.
--- NOTE | 2022-03-25 08:04 | History & Physical Bridge Note ---
Date of Service March 25, 2022 History & Physical Bridge Note I have examined the patient, reviewed the History & Physical and in the interval since the performance of the History & Physical I have noted the following changes of clinical significance: no changes noted
[2022-03-25] MEDS ORDERED: ATORVASTATIN 40 MG TAB PO SCH (09:00)
[2022-03-25] MEDS ORDERED: BACITRACIN OINT 0.9 GM PKT ONE (09:09)
[2022-03-25] MEDS ORDERED: ACETAMINOPHEN 325 MG TAB PO PRN (09:18)
[2022-03-25] MEDS ORDERED: ACETAMINOPHEN W/CODEINE #3 1 TAB PO PRN (09:18)
--- NOTE | 2022-03-25 09:18 | Electrophysiology Report ---
Date of Service March 25, 2022 Electrophysiology Procedure Electrophysiology Procedure Report Preoperative diagnosis: Complete heart block Postoperative diagnosis: Same Procedure: Dual-chamber pacemaker implantation Surgeon: Paul Ortez MD Estimated blood loss: 20 cc Complications: None Disposition: [employer] Helper recovery Procedure details: After obtaining informed consent for the procedure, the patient was brought to the laboratory and prepped and draped in the standard sterile manner. The left prepectoral region was anesthetized with 1% lidocaine local anesthetic and left axillary venipuncture was performed by percutaneous technique and a guidewire placed through the left subclavian vein into the superior vena cava. The area was further infiltrated with 1% lidocaine local anesthetic and a 5 cm incision was made parallel to the left clavicle and 2 cm below it and carried down to the anterior pectoralis fascia. A pacemaker pocket was formed by blunt dissection anterior to the pectoralis fascia and a vancomycin-soaked sponge was placed in the pocket. An 8 Irish Medtronic lead introducer was placed over the guidewire into the left subclavian vein, the dilator and guidewire were removed and a bipolar active fixation steroid tipped ventricular lead was advanced through the introducer into the superior vena cava. A guidewire was placed through the introducer and the introducer was stripped from the lead and guidewire. Another 8 Irish Medtronic lead introducer was placed over the guidewire into the left subclavian vein, the dilator and guidewire were removed and a bipolar active fixation steroid tipped atrial lead was advanced through the introducer into the superior vena cava. A guidewire was placed back through the introducer and the introducer was stripped from the lead and guidewire. Using a curved stylette the ventricular lead was advanced through the right ventricular outflow tract into the pulmonary artery and then using a straight stylette was positioned in the right ventricular apex. The screw was extended fixing the lead in position. Pacing and sensing thresholds were evaluated in bipolar configuration and are recorded on the implant data sheet. Diaphragmatic pacing was evaluated at maximum output as noted on the data sheet. Using a curved stylette the atrial lead was positioned in the region of the atrial appendage and the screw extended fixing the lead in position. Pacing and sensing thresholds were evaluated in bipolar configuration and are recorded on the implant data sheet. Diaphragmatic pacing was evaluated at maximum output as noted on the data sheet. Once the leads were in position they were attached to the anterior pectoralis fascia using 2 sutures of 2-0 silk around each lead collar. The vancomycin soaked sponge was removed from the pocket, hemostasis was obtained, the pacemaker was attached to the leads and placed in the pocket with the leads coiled beneath it. Following connection of the permanent pacemaker the temporary pacemaker was removed from the right femoral vein under fluoroscopic guidance. Hemostasis was obtained by firm pressure at the venipuncture site. The incision was closed with a running double subcutaneous closure of 3-0 Vicryl absorbable suture, followed by running subcuticular skin closure of 4-0 Vicryl absorbable suture. Bacitracin ointment was placed on the incision and a dressing applied. [facility] Electrophysiology codes Indication for Procedure (1) CHB (complete heart block): Pacing Procedure 1: Pacin Insert/Replace Pacer A & V PG Moderate Sedation Codes Moderate Sedation Codes Procedure 1: Sedation/Anesthesia: 59733 Mod Sedation by the same physician;Init15 Min Child Age 5 & Up Procedure 2: Sedation/Anesthesia: 42208 Mod Sedation by the same physician; Ea [id number] Minutes
[2022-03-25] MEDS ORDERED: ATENOLOL 50 MG TABLET PO SCH (09:30)
[2022-03-25] MEDS: ASPIRIN 81 MG ECTAB PO SCH (10:12)
--- NOTE | 2022-03-25 10:28 | Critical Care Progress Note ---
Date of Service March 25, 2022 Assessment & Plan (1) CHB (complete heart block): Plan: ICU Assessment and Plans Reason Critically Ill: 71 yo M admitted to ICU for monitoring after temporary transvenous pacemaker placement due to complete heart block, awaiting permanent pacemaker insertion. Neuro - CAM ICU: NEGATIVE Sedation: None Analgesia: None, no pain at present Fully alert and oriented Cardiac/Vascular - Status post PPM Respiratory - No known respiratory disease Saturating well on RA GI - Diet- heart healthy -N.p.o. after midnight RENAL/ELECTROLYTES - Mild hyponatremia: resolved Trend BMP - No concerns at this time ENDO - No known history of diabetes Glucose 221 on admission likely due to stress hyperglycemia ICU hyperglycemic protocol HEME - Hgb stable Trend CBC ID - LINES/IV ACCESS - PIVs intact. ICU will sign off. Thank you for the consult. (2) Syncope: Admission and Anticipated Discharge Date Admission Date: March 22, 2022 Subjective Patient seen and examined. Doing well after his permanent pacemaker placement. Tolerating his diet. Eager to get out of bed. Review of Systems Review of Systems: All systems reviewed & are unremarkable except as noted in HPI & below Physical Exam Constitutional: WD/WN, vitals as above Eyes: PERRL, conjunctivae normal, anicteric sclerae Respiratory: normal respiratory effort, lungs clear to auscultation Cardiovascular: RRR, no murmur, no edema Pacemaker in place Gastrointestinal (Abdomen): normal bowel sounds, soft, nontender, no hepatosplenomegaly Neurologic: PERRL, EOMI, accommodation nl, no face palsy, no dysarthria Psychiatric: A+Ox3, euthymic affect Results & Data Results & Data ([facility]) Vital Signs (Past 12 Hours) Vital Signs Temp Pulse Pulse Resp BP BP Pulse Ox 03/25/22 09:30 92 H 16 138/84 95 03/25/22 09:15 100 H 16 144/90 H 95 03/25/22 07:07 75 20 151/98 H 95 03/25/22 04:50 68 16 91 03/25/22 04:40 71 22 93 03/25/22 04:30 72 18 95 03/25/22 04:20 72 14 94 03/25/22 04:10 79 10 L 94 03/25/22 04:00 74 16 145/83 H 94 03/25/22 03:50 71 15 94 03/25/22 03:40 81 16 95 03/25/22 03:30 67 22 92 03/25/22 03:20 69 21 92 03/25/22 03:12 37.0 C 03/25/22 03:10 67 21 91 03/25/22 03:00 67 20 127/75 92 03/25/22 02:50 65 19 92 03/25/22 02:40 82 25 H 93 03/25/22 02:30 62 16 92 03/25/22 02:20 66 21 91 03/25/22 02:10 61 8 L 91 03/25/22 02:00 61 2 L 117/65 90 03/25/22 01:50 64 18 91 03/25/22 01:40 64 19 91 03/25/22 01:30 64 15 91 03/25/22 01:20 64 21 91 03/25/22 01:10 80 19 95 03/25/22 01:00 70 20 133/90 94 03/25/22 00:50 66 24 91 03/25/22 00:40 67 22 92 03/25/22 00:30 82 15 96 03/25/22 00:20 77 23 95 03/25/22 00:10 67 21 91 03/25/22 00:00 68 21 128/80 91 03/24/22 23:50 74 22 90 03/24/22 23:40 71 21 90 03/24/22 23:30 68 24 93 03/24/22 23:20 70 21 95 03/24/22 23:10 81 20 95 03/24/22 23:00 69 13 131/78 94 03/24/22 22:50 70 17 93 03/24/22 22:40 82 36 H 94 03/24/22 22:30 68 8 L 88 L Coding Level of Care Code 45426 Subseq Hosp Care Lvl 1 Diagnoses CHB (complete heart block) I44.2 Syncope R55 Syncope type: unspecified (1) Syncope Syncope type: unspecified Qualified Code(s): R55 - Syncope and collapse
--- NOTE | 2022-03-25 15:25 | Post Anesthesia Assessment ---
Date of Service March 25, 2022 Post Sedation Assessment Vital Signs Temp Pulse Pulse Resp BP BP Pulse Ox 03/25/22 14:00 72 25 H 03/25/22 13:00 76 27 H 03/25/22 12:31 81 24 126/98 03/25/22 12:15 78 34 H 133/93 03/25/22 12:00 79 28 H 128/91 03/25/22 11:45 89 28 H 139/97 03/25/22 11:31 101 H 30 H 03/25/22 11:00 91 H 23 115/84 96 03/25/22 10:30 98 H 25 H 129/91 95 03/25/22 10:15 104 H 29 H 139/105 H 03/25/22 10:01 95 H 29 H 03/25/22 10:00 98 H 26 H 152/81 H 96 03/25/22 09:57 89 29 H 03/25/22 09:55 85 25 H 145/88 H 96 03/25/22 09:30 92 H 16 138/84 95 03/25/22 09:15 100 H 16 144/90 H 95 03/25/22 07:07 75 20 151/98 H 95 03/25/22 06:45 75 17 94 03/25/22 04:50 68 16 91 03/25/22 04:40 71 22 93 03/25/22 04:30 72 18 95 03/25/22 04:20 72 14 94 03/25/22 04:10 79 10 L 94 03/25/22 04:00 74 16 145/83 H 94 03/25/22 03:50 71 15 94 03/25/22 03:40 81 16 95 03/25/22 03:30 67 22 92 03/25/22 03:20 69 21 92 03/25/22 03:12 37.0 C 03/25/22 03:10 67 21 91 03/25/22 03:00 67 20 127/75 92 03/25/22 02:50 65 19 92 03/25/22 02:40 82 25 H 93 03/25/22 02:30 62 16 92 03/25/22 02:20 66 21 91 03/25/22 02:10 61 8 L 91 03/25/22 02:00 61 2 L 117/65 90 03/25/22 01:50 64 18 91 03/25/22 01:40 64 19 91 03/25/22 01:30 64 15 91 03/25/22 01:20 64 21 91 03/25/22 01:10 80 19 95 03/25/22 01:00 70 20 133/90 94 03/25/22 00:50 66 24 91 03/25/22 00:40 67 22 92 03/25/22 00:30 82 15 96 03/25/22 00:20 77 23 95 03/25/22 00:10 67 21 91 03/25/22 00:00 68 21 128/80 91 03/24/22 23:50 74 22 90 03/24/22 23:40 71 21 90 03/24/22 23:30 68 24 93 03/24/22 23:20 70 21 95 03/24/22 23:10 81 20 95 03/24/22 23:00 69 13 131/78 94 03/24/22 22:50 70 17 93 03/24/22 22:40 82 36 H 94 03/24/22 22:30 68 8 L 88 L 03/24/22 22:20 63 21 91 03/24/22 22:10 62 24 92 03/24/22 22:00 65 16 139/84 95 03/24/22 21:50 75 17 95 03/24/22 21:40 66 22 96 03/24/22 21:30 70 12 96 03/24/22 21:20 67 18 96 03/24/22 21:10 68 24 95 03/24/22 21:00 65 18 163/99 H 95 03/24/22 20:50 71 19 96 03/24/22 20:40 65 10 L 94 03/24/22 20:30 75 18 94 03/24/22 20:20 65 22 92 03/24/22 20:10 67 25 H 93 03/24/22 20:00 67 23 136/84 92 03/24/22 19:50 66 20 94 03/24/22 19:40 73 19 95 03/24/22 19:30 67 23 94 03/24/22 19:20 66 21 93 03/24/22 19:10 69 17 96 03/24/22 19:00 71 30 H 95 03/24/22 18:00 71 31 H 141/76 H 94 03/24/22 17:00 77 20 153/93 H 95 03/24/22 16:00 36.8 C 75 29 H 143/85 H 95 Recovery Score Activity: Moves 4 extremities Respiration: Deep Breath/Cough Circulation: +/-20% PreAnes Value Consciousness: Fully Awake Oxygen Saturation: > 92% On Room Air Post Anesthesia Score: 10 Discharge Sedation Level of Care: Fast Track Phase II Post Sedation Plan On clinical assessment, the patient appears to have tolerated the sedation without complications. Patient is recovering as anticipated. Patient will continue to be monitored by nursing and may be discharged when sedation discharge criteria are met per below protocol. Upon Completions of procedure up to 15 minutes continue every 5 minute vital signs and the P.A.R. score; then discharge to a Phase I or Fast Track to Phase II per the following guidelines: * Discharge Patient to appropriate Phase II area if PAR is 8 or greater or return to pre- procedure baseline. The post - procedure orders will be as directed. * If PAR score is less than 8 or not return to pre-procedure baseline then patient will follow Phase I monitoring till PAR is reached for Phase II. The Phase I may be done in procedure room or may call to secure a Phase I area. * If naloxone or flumazenil are used for reversal, hold in Phase I for continued monitoring from when last reversal dose was given for a minimum of 60 minutes or longer pending the nurse and/or physician discretion of patient condition before discharge to Phase II. Please call the Sedation Physician to re-evaluate and complete post-note for discharge to Phase II area. Do NOT discharge from procedure sedation or Phase 1 until post- sedation evaluation note is complete by procedure /sedation MD Sedation Discharge Instructions to be given to the patient at discharge to home.
--- NOTE | 2022-03-25 16:49 | XRay Report ---
XR chest 2V PA/lateral HISTORY: Left-sided pacemaker placement. Assess for pneumothorax. EXACT TIME ORDERED Evaluate for pn eumothorax and l COMPARISON: Chest 03/23/2022. FINDINGS: Interval placement left-sided dual-chamber pacemaker. The leads appear intact. No pleural e ffusions. No pneumothorax. The lungs are clear. The heart is normal in size. IMPRESSION: Interval placement of a left-sided dual-chamber pacemaker. No pneumothorax. ACT 112: Negative or not required by law. Electronically signed by: Marcell Arizmendi M.D. 03/25/2022 4:47 PM
--- NOTE | 2022-03-27 07:08 | Electrocardiogram Report ---
Test Reason : Blood Pressure : / mmHG Vent. Rate : 072 BPM Atrial Rate : 072 BPM P-R Int : 220 ms QRS Dur : 158 ms QT Int : 434 ms P-R-T Axes : 059 101 041 degrees QTc Int : 475 ms Poor data quality, interpretation may be adversely affected Sinus rhythm with 1st degree A-V block Right bundle branch block Abnormal ECG When compared with ECG of 23-MAR-2022 08:46, No significant change was found Confirmed by Valerio Krishna ([id number]) on 03/27/2022 7:08:32 AM Referred By: Morgan Ham Confirmed By:Valerio Krishna
--- NOTE | 2022-03-27 07:53 | Discharge Summary ---
Date of Service March 25, 2022 Admission HPI Per Admitting Provider This is a 71 yo male who comes in with sudden severe headache and presyncope. Patient then passed out. Patient was brought in to the hospital with a heart block. During his time in the ER, he was found to be in asystole, and required temporary external pacer. 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 Patient is now stable and will be admitted to ICU. Principal Diagnosis complete heart block Discharge Exam Constitutional WD/WN, vitals as above Eyes PERRL, conjunctivae normal, anicteric sclerae ENMT external ear and nose normal, oropharynx normal Neck trachea midline, no thyromegaly Cardiovascular RRR, no murmur, no edema Gastrointestinal (Abdomen) normal bowel sounds, soft, nontender, no hepatosplenomegaly Musculoskeletal no cyanosis or clubbing, extremities motor strength 5/5 Neurologic PERRL, EOMI, accommodation nl, no face palsy, no dysarthria Lymphatic no cervical or axillary lymphadenopathy Discharge Data Allergies Allergy/AdvReac Type Severity Reaction Status Date / Time No Known Allergies Allergy Verified 04/06/20 14:09 Consultations 03/22/22 15:56 Consult Cardiology Stat 03/22/22 17:10 ED Decision to Admit Stat 03/22/22 17:39 Consult Payroll Auditor Routine Procedures Performed Operation Date: 03/22/22 16:30 Actual Procedures p Ins/RemTemporary Transvenous Pacer - Momo Palm MD Operation Date: 03/25/22 07:30 Actual Procedures p Pacer with A/V Leads (Dual) - Paul Ortez MD Ordered Studies 03/22/22 16:06 CL Cath Imgs for PACS use only Stat 03/25/22 07:00 EP Lab Images for PACS ONCE Hospital Course (1) CHB (complete heart block): Patient admitted for complete heart block Required temporary pacemaker on day of admission. Permanet pacemaker was placed on morning of discharge. Chest x ray did not show a pneumothorax in the afternoon. Discharge instructions noted below. (2) Syncope: caused by problem 1 (3) Acute non-ST elevation myocardial infarction (NSTEMI): Appreciate input from Cario: High sensitivity troponin peaked at 1499. No angina. This was in the setting of complete heart block with long pauses and syncope. Likely related to poor perfusion. Cannot exclude underlying CAD, especially with with wall motion abnormalities noted on echo. Recommend treating for underlying CAD. Continue aspirin 81 mg daily. Recommend high-intensity statin therapy. Beta-seferino can be resumed once permanent pacemaker in place. Total Time Total Time Spent Total Time Spent (In Minutes): 45 Discharge Plan Discharge Items Patient Disposition: Home - Self-Care Reason For Visit: BRADYCARDIA COMPLETE HEART BLOCK Discharge Diagnosis: complete heart block Activity: As commented below Non-emergency contact: Primary Care Provider and Senior Javascript Developer Call non-emergency contact if: you have any medication questions Follow-up/Referrals: Paul Ortez MD [Physician] - 03/27/22 9:30 am Christopher Mercer MD [Primary Care Provider] - Diet: Heart Healthy Addtl Attending Provider Instructions: ACTIVITY RECOMMENDATIONS: * Do not raise affected arm over head for 2 weeks. SPECIAL CARE INSTRUCTIONS: * If bleeding occurs, apply direct pressure to area for 5 minutes. * Call your doctor if you have severe pain, fever, drainage or bleeding at site. * Keep dressing on and dry. * Keep any scheduled doctor's appointment. * Implant Card - hand held device with website information given. SKIN IRRITATION: * You may experience some redness and/or swelling in the area where radiation was administered. If any skin irritation occurs, please contact your family physician. FOLLOW UP VISIT: Keep any scheduled doctor appointments. Pending Studies at Discharge: No Stand-Alone Forms: [facility], Smoking Cessation Medications and DC Order Prescriptions: New atorvastatin 80 mg tablet 80 mg PO HS Qty: 30 RF: 0 Continued meloxicam 15 mg tablet 15 mg PO DAILY PRN (Reason: pain) Qty: 30 RF: 0 atenolol 50 mg tablet 50 mg PO QAM RF: 0 lorazepam 1 mg tablet 1 mg PO HS PRN (Reason: anxiety) RF: 0 aspirin [Aspir-81] 81 mg Tablet,Delayed Release (Dr/Ec) 81 mg PO QAM RF: 0 Discontinued atorvastatin 20 mg tablet 20 mg PO QAM RF: 0 Discharge Orders: Discharge Order (Routine); Ordered 03/25/22 Ordered By: Morgan Ham Admission Data Admit Date/Time: 03/22/22 17:39 Attending Provider: Morgan Ham Admit Provider: Morgan Ham Primary Care Provider: Christopher Mercer Other Providers: Paul Ortez ; Morgan Ham ; Samy Lomas Other Interventions: Discharge Summary Assessment (RN) Last Done: 03/25/22 17:02 Coding Level of Care Code D/C DAY MANAGEMENT >30 MINS Diagnoses CHB (complete heart block) I44.2 Syncope R55 Syncope type: unspecified Acute non-ST elevation myocardial infarction (NSTEMI) I21.4
== END 2022-03-25 17:59 | disposition home or self-care (01) | DRG 242 ==
LOC: ED 15:47 → CC 16:10 → 1E 16:10

== ENCOUNTER 2022-04-14 17:19 | Inpatient (IN) ==
--- NOTE | 2022-04-14 18:41 | Emergency Department Note ---
History of Present Illness General Chief complaint: Illness Stated complaint: SEIZURE Time Seen by Provider: 04/14/22 18:00 History of Present Illness Maximum Pain Intensity: 5 71-year-old male presents to the ED with a chief complaint of headaches. The patient states that he has been having intermittent headaches for more than a month. The patient states that his headaches come on quickly and feel like a pressure in his frontal region. He states that his face starts to ache and the discomfort gets into his chest and then into his extremities where he feels like his extremities get tight and he is unable to use them normally. They feel as if they are going into spasm. The patient had a pacemaker placed 3 weeks ago. This did not resolve the headaches. The patient had a CT angiogram of his head and neck a couple of weeks ago that showed 90% stenosis of his right internal carotid artery. He is scheduled to have surgery by Dr. Acevedo on May 07. The patient states that he had been placed on Plavix back after the CT angiograms and this seemed to help his headaches. The patient states that he developed black stools last week and his Plavix was stopped. Since stopping the Plavix his headaches have returned. He has a colonoscopy scheduled for 3 days from now. His symptoms are worse with activity and normally go away with rest but today when he developed a headache it did not seem to go away right away. He is currently having a mild headache. He does not want anything for symptoms. Denies any chest pains or extremity pains at this time. Home Medications Medication Instructions Recorded Confirmed Type atenolol 50 mg tablet 50 mg PO QAM tab 06/10/19 04/14/22 History lorazepam 1 mg tablet 1 mg PO HS PRN tab 06/10/19 04/14/22 History atorvastatin 80 mg tablet 80 mg PO HS #30 tab 03/25/22 04/14/22 Rx aspirin 81 mg chewable tablet 81 mg PO QAM 03/27/22 04/14/22 History prednisone 10 mg tablets in a dose 10 mg PO QAM 04/14/22 04/14/22 History pack Allergies Allergy/AdvReac Type Severity Reaction Status Date / Time No Known Allergies Allergy Verified 04/14/22 18:14 Past Med/Surg History Medical History (Updated 04/14/22 @ 20:20 by Micky Dominguez DO) Anxiety Carpal tunnel syndrome Depression Hearing deficit Left Hypercholesteremia Hypertension Osteoarthritis Peripheral vascular disease RLE stent (Dr Acevedo/2017) Surgical History History of carpal tunnel release Left CTR: 12/22/19: MAC sedation at [facility] History of colonoscopy Hx of excision of epidermal inclusion cyst Dr. 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 Feels Safe at Home: Yes Assistive Devices: None Review of Systems A total of 10 systems reviewed and were otherwise negative Physical Exam Vital Signs Vital Signs - 24 hr 04/14/22 17:28 04/14/22 17:42 04/14/22 18:38 Temperature 36.9 C Temperature Source Temporal Artery Scan Pulse Rate 68 Pulse Rate [Apical] Pulse Rhythm Regular Pulse Strength Normal Respiratory Rate 20 Respiratory Effort / Characteristics Non-Labored Spontaneous Respiratory Depth Normal Respiratory Pattern Regular Blood Pressure 144/85 H Blood Pressure [Left Arm] Blood Pressure Mean 104 Blood Pressure Mean [Left Arm] Blood Pressure Position Sitting Pulse Oximetry 96 97 97 Oxygen Delivery Method Room Air Room Air Room Air Oxygen Flow Rate 0 Sepsis Recent Fever Within 48 Hours No Sepsis New/Unexplained Change in Mental Status N/A Sepsis Action Taken by Nursing No Action Required 04/14/22 19:00 04/14/22 20:00 Temperature Temperature Source Pulse Rate Pulse Rate [Apical] 64 61 Pulse Rhythm Pulse Strength Respiratory Rate 21 21 Respiratory Effort / Characteristics Respiratory Depth Respiratory Pattern Blood Pressure Blood Pressure [Left Arm] 127/61 Blood Pressure Mean Blood Pressure Mean [Left Arm] 83 Blood Pressure Position Pulse Oximetry 98 98 Oxygen Delivery Method Room Air Oxygen Flow Rate Sepsis Recent Fever Within 48 Hours Sepsis New/Unexplained Change in Mental Status Sepsis Action Taken by Nursing CONSTITUTIONAL/VITAL SIGNS: Reviewed / noted above. GENERAL: Non-toxic in appearance. INTEGUMENTARY: Warm, dry, and [place]. HEAD: Normocephalic. EYES: without scleral icterus or trauma. ENT/OROPHARYNX: clear and moist. LYMPHADENOPATHY/NECK: Is supple without lymphadenopathy or meningismus. RESPIRATORY: Clear to auscultation bilaterally. No increased work of breathing. CARDIOVASCULAR: Regular rate and rhythm. GI/ABDOMEN: Soft and nontender. No organomegaly or pulsatile mass. EXTREMITIES: Warm and well perfused. BACK: No CVA tenderness. NEUROLOGICAL: Intact without focal deficits. PSYCHIATRIC: normal affect. MUSCULOSKELETAL: Normally developed with good muscle tone. RECTAL: Guaiac negative stools. TRIAGE NURSING DOCUMENTATION REVIEWED. Medical Decision Making Differential Diagnosis The differential that was considered includes acute myocardial infarction, acute coronary syndrome, myocarditis, pericarditis, pericardial effusions /tamponade, esophageal perforation, thoracic aortic dissection, pulmonary embolism, pneumonia, pneumothorax, pancreatitis, shingles, acute cholecystitis, perforated abdominal viscus. Medical Records Attestation: I reviewed the patient's medical records. Home Medications Current Medication List: was personally reviewed by me Laboratory Data Attestation: I reviewed the patient's lab results. Result diagrams: 04/14/22 17:55 04/14/22 17:55 Lab Results 04/14/22 04/14/22 Range/Units 17:55 17:55 WBC 15.97 H (4.8-10.8) K/uL RBC 4.69 L (4.7-6.1) M/uL Hgb 14.5 (14.0-18.0) g/dL Hct 41.9 L (42-52) % MCV 89.3 (80-100) fL MCH 30.9 (25-34) pg MCHC 34.6 (32-36) g/dL RDW Std Deviation 40.4 (36.4-46.3) fL RDW Coeff of Marco Antonio 12.6 (11.5-14.5) % Plt Count 293 (130-400) K/uL MPV 10.2 (7.4-10.4) fL Immature Gran % (Auto) 0.3 % Neut % (Auto) 83.4 % Lymph % (Auto) 10.1 % Door % (Auto) 6.0 % Eos % (Auto) 0.1 % Baso % (Auto) 0.1 % Neut # (Auto) 13.33 H (1.4-6.5) K/uL Lymph # (Auto) 1.61 (1.2-3.4) K/uL Door # (Auto) 0.96 H (0.11-0.59) K/uL Eos # (Auto) 0.02 (0-0.5) K/uL Baso # (Auto) 0.01 (0-0.2) K/uL Immature Gran # (Auto) 0.04 H (0.00-0.02) K/uL Sodium 136 (136-145) mmol/L Potassium (3.5-5.1) mmol/L Chloride 105 (98-107) mmol/L Carbon Dioxide 22 (21-32) mmol/L Anion Gap 9 (3-11) BUN 16 (6-23) mg/dl Creatinine 0.85 (0.6-1.4) mg/dl Est Cr Clr Drug Dosing Not Reportable Est GFR ( Amer) 100.9 ml/min Est GFR (Non-Af Amer) 87.1 ml/min BUN/Creatinine Ratio 18.8 (10-20) Glucose 127 H (70-99(Fasting)) mg/dl Calcium 9.3 (8.5-10.1) mg/dl Total Bilirubin 0.5 (0.2-1.0) mg/dl AST (13-39) U/L ALT 15 (7-52) U/L Alkaline Phosphatase 72 (34-104) U/L Troponin I High Sens 387.3 H* (0-20) pg/ml Total Protein 7.3 (6.0-8.3) gm/dl Albumin 4.2 (3.4-5.0) gm/dl Globulin 3.1 (2.5-4.0) gm/dl Albumin/Globulin Ratio 1.4 (0.9-2) Imaging Data Radiologist's Impression: Chest X-Ray 04/14/22 18:33 SINGLE VIEW CHEST CLINICAL HISTORY: Atypical chest pain. FINDINGS: 3 AP, portable, upright chest radiographs are compared to study dated 03/25/2022. Correlation is made with chest CT dated 05/07/2016. A 2-lead cardiac pacemaker is unchanged in position and partially obscures the left mid chest. The heart is enlarged noting atherosclerotic calcification of the thoracic aorta. The pulmonary vasculature is noncongested. The lungs and pleural spaces are clear. No pneumothorax is seen. The skeletal structures are osteopenic. The bony thorax is grossly intact. Calcific tendinopathy is noted in the left shoulder. IMPRESSION: 1. Cardiomegaly and cardiac pacemaker without radiographic evidence of congestive failure. 2. No airspace consolidation or large pleural effusion is identified. ACT 112: Negative or not required by law. Electronically signed by: Joesph Kaplan M.D. 04/14/2022 7:13 PM ECG Data Attestation: I personally reviewed and interpreted this ECG as follows: Additional Comments: Twelve-lead EKG: Per my interpretation shows a atrial paced rhythm at a rate of 65. There is T wave inversions and ST depressions in the lateral leads. These appear to be worse than a previous EKG. No ST elevation. No PVCs. Normal QTC peer MDM Narrative Patient presents as above with primary complaint of headaches, face pain, or pain down chest pain that he has been having for at least a month intermittently. Is worse with activity. It resolved after being on Plavix. He has a 90% carotid stenosis on the right and has surgery scheduled for May 07. He had some black stools and guaiac positive test a week ago and was removed from the Plavix. Since being off the Plavix his headaches have returned. He has guaiac negative stools today. Colonoscopy scheduled for 3 days. The patient is EKG shows a paced atrial rhythm with some ST depressions laterally that look worse than previous EKG. The troponin is elevated. Blood work othe rwise unremarkable. Albeit an unusual presentation, the symptoms could be related to cardiac ischemia. Cardiac catheterization may be beneficial. The patient was given aspirin p.o.. He will be seen by the hospitalist for further evaluation and care. Currently does not have any chest pains. Impression & Plan Elevated troponin, Non-ST elevation (NSTEMI) myocardial infarction Discharge Plan Visit Data Chief Complaint: Illness Stated Complaint: SEIZURE ED Provider: Micky Dominguez Discharge Problem: Elevated troponin, Non-ST elevation (NSTEMI) myocardial infarction Patient Disposition: Being Evaluated by Hospitalist Forms Stand Alone Forms: My [facility] Prescriptions Prescriptions: No Action atenolol 50 mg tablet 50 mg PO QAM RF: 0 lorazepam 1 mg tablet 1 mg PO HS PRN (Reason: anxiety) RF: 0 aspirin [Aspirin Child] 81 mg Tablet,Chewable 81 mg PO QAM RF: 0 prednisone 10 mg tablets,dose pack 10 mg PO QAM RF: 0 atorvastatin 80 mg tablet 80 mg PO HS Qty: 30 RF: 0 Referrals Referrals: Christopher Mercer MD [Primary Care Provider] -
[2022-04-14 18:50] LABS: Basophils # (auto) 0.01 K/uL (0-0.2); Basophils % (auto) 0.1 %; Eosinophils # (auto) 0.02 K/uL (0-0.5); Eosinophils % (auto) 0.1 %; Hematocrit (blood only) 41.9 % (42-52); Hemoglobin 14.5 g/dL (14.0-18.0); Immature Granulocytes # (auto) 0.04 K/uL (0.00-0.02); Immature Granulocytes % (auto) 0.3 %; Lymphocytes # (auto) 1.61 K/uL (1.2-3.4); Lymphocytes % (auto) 10.1 %; Mean Corpuscular Hemoglobin 30.9 pg (25-34); Mean Corpuscular Hgb Conc 34.6 g/dL (32-36); Mean Corpuscular Volume 89.3 fL (80-100); Mean Platelet Volume 10.2 fL (7.4-10.4); Monocytes # (auto) 0.96 K/uL (0.11-0.59); Neutrophils # (auto) 13.33 K/uL (1.4-6.5); Neutrophils % (auto) 83.4 %; Platelet Count 293 K/uL (130-400); RDW Coefficient of Variation 12.6 % (11.5-14.5); RDW Standard Deviation 40.4 fL (36.4-46.3); Red Blood Count 4.69 M/uL (4.7-6.1); White Blood Count 15.97 K/uL (4.8-10.8)
[2022-04-14 19:13] LABS: Troponin I High Sensitivity 387.3 pg/ml (0-20)
--- NOTE | 2022-04-14 19:14 | XRay Report ---
SINGLE VIEW CHEST CLINICAL HISTORY: Atypical chest pain. FINDINGS: 3 AP, portable, upright chest radiographs are compared to study dated 03/25/2022. Correlation is made with chest CT dated 05/07/2016. A 2-lead cardiac pacemaker is unchanged in position and parti ally obscures the left mid chest. The heart is enlarged noting atherosclerotic calcification of the t horacic aorta. The pulmonary vasculature is noncongested. The lungs and pleural spaces are clear. No pneumothorax is seen. The skeletal structures are osteopenic. The bony thorax is grossly intact. Calc ific tendinopathy is noted in the left shoulder. IMPRESSION: 1. Cardiomegaly and cardiac pacemaker without radiographic evidence of congestive failure. 2. No airspace consolidation or large pleural effusion is identified. ACT 112: Negative or not required by law. Electronically signed by: Joesph Kaplan M.D. 04/14/2022 7:13 PM
[2022-04-14 20:06] LABS: Alanine Aminotransferase 15 U/L (7-52); Albumin Globulin Ratio 1.4 (0.9-2); Albumin Level 4.2 gm/dl (3.4-5.0); Alkaline Phosphatase 72 U/L (34-104); Anion Gap 9 (3-11); BUN Creatinine Ratio 18.8 (10-20); Bilirubin,Total 0.5 mg/dl (0.2-1.0); Blood Urea Nitrogen 16 mg/dl (6-23); Calcium 9.3 mg/dl (8.5-10.1); Carbon Dioxide 22 mmol/L (21-32); Chloride 105 mmol/L (98-107); Est GFR (African American) 100.9 ml/min; Est GFR (Non-African American) 87.1 ml/min; Globulin 3.1 gm/dl (2.5-4.0); Glucose 127 mg/dl (70-99(Fasting)); Sodium 136 mmol/L (136-145); Total Protein 7.3 gm/dl (6.0-8.3)
[2022-04-14] MEDS ORDERED: ASPIRIN CHEW 324 MG PO STA (20:20)
--- NOTE | 2022-04-14 20:32 | History & Physical Report ---
Date of Service April 14, 2022 Assessment & Plan (1) Non-ST elevation (NSTEMI) myocardial infarction: Plan: Ayad Laguerre is a 71yo male with PMHx significant for symptomatic complete heart block (s/p PPM placement on 03/25/[address] Ortez), significant right ICA janet nosis (found 3 weeks ago, was on Plavix), and chronic headaches who presented to [facility] ED on 04/14 for chest pain. NSTEMI Typical angina symptoms, with EKG showing ST depressions and T-wave inversions in anterolateral leads, and with initial hsTroponin elevated at 387.3. Patient's chest pain is currently resolved but he still has mild headache. - hsTroponin increased to 2698.9 at 20:37 - s/p Aspirin 324mg x1 in ED - start Heparin gtt with bolus - TTE ordered (note: TTE on 03/23 with EF 50-55% but with akinesis of basal inferior and basal inferoseptal wall segments) - trend hsTroponin with AM labs - Cardiology consulted - appreciate recs - maintain NPO status for possible catheterization tomorrow - continue daily baby Aspirin and high-intensity statin - PRN EKG/Nitro for chest pain - PRN Tylenol for headaches Right ICA Stenosis Per CT imaging several weeks ago, was on Plavix until one week ago when he developed melena, and has since stopped it. - will defer to Cardiology recommendations regarding Plavix/dual anti-platelet therapy - patient currently scheduled for CEA with Dr. Acevedo on 05/07 - this may need to be delayed based on current hospitalization H/o Melena Several melenotic stools that occurred one week ago in context of Plavix, and have since resolved since stopping Plavix. Hgb WNL here in the ED, and patient is hemodynamically stable. - please guaiac-test all stools given that patient has been started on Aspirin and Heparin gtt - trend CBC in AM Leukocytosis Possibly due to acute inflammation in setting of above symptoms. No s/s infection. Hemodynamically stable. - trend in AM FEN/GI: NPO for possible cath DVT Prophylaxis: Heparin gtt Code Status: full code Disposition: med/tele (2) Elevated troponin: (3) Stenosis of right internal carotid artery: (4) CHB (complete heart block): (5) Dyslipidemia: (6) Melena: History of Present Illness Chief Complaint: chest pain Primary Care Provider: Christopher Mercer MD Ayad Laguerre is a 71yo male with PMHx significant for symptomatic complete heart block (s/p PPM placement on 03/25/[address] Ortez), significant right ICA stenosis (found 3 weeks ago, was on Plavix), and chronic headaches who presented to [facility] ED on 04/14 for chest pain. Patient reports that he had episodes involving headache and substernal chest pressure radiating down both arms with arm heaviness, which usually occur during light physical activity, last 10-15 minutes, and resolve with rest. These episodes have been occurring at least several times per week for more than one month. Of note patient was admitted herre ~3 weeks ago for symptomatic complete heart block as well as elevated Troponin - he had PPM placed by Dr. Ortez and was started on Aspirin and high dose statin during that hospitalization, without cardiac catheterization. After that hospitalization the patient continued to have the above-mentioned episodes and was found to have 90% occlusion of right ICA - vascular surgery was consulted and recommended that patient be started on Plavix as well, and he was scheduled for CEA with Dr. Acevedo on 05/07. Patient reports that his chest pain/headache episodes resolved while on Plavix. However he started to have one melanotic stool per day which started ~1 week ago - this occurred for 2-3 days and then patient called PCP who told him to stop taking Aspirin and Plavix. Since then his melena resolved and he now has one normal stool per day, but he has started to have daily headache/chest pain episodes again. Of note patient was reportedly scheduled for colonoscopy next week for melena, and he was started on Prednisone taper yesterday by PCP, for the headache/chest pain that has been persistent. Then today, the patient had three such episodes within several hours of each other. All episodes occurred with light physical activity; the first two episodes resolved after 10-15 minutes with rest but the third episode persisted. Patient was brought to the ED by his daughter - no nitro or Aspirin given en route. Patient denies h/o heart disease or previous heart catheterization. He reports that his father had "chest pain, an irregular heart beat, and took nitro regularly". Otherwise denies family history of heart disease or MA. Patient is a former smoker but quit "years ago". He also drinks several times per week - beer and hard liquor. Would not specify how much. Denies other drug use. In the ED the patient was hemodynamically stable. hsTroponin 387.[address] depressions and T wave inversions in anterolateral leads (is atrial-paced rhythm). Otherwise labs showed WBC 15.97 (neutrophilic predominance, mild L shift). CBC/BMP otherwise WNL. CXR with cardiomegaly but no evidence of acute cardiopulmonary disease. COVID-19 negative. Patient was given Aspirin 324mg PO x1 in ED. Allergies Allergy/AdvReac Type Severity Reaction Status Date / Time No Known Allergies Allergy Verified 04/14/22 18:14 Home Medications Medication Instructions Recorded Confirmed Type atenolol 50 mg tablet 50 mg PO QAM tab 06/10/19 04/14/22 History lorazepam 1 mg tablet 1 mg PO HS PRN tab 06/10/19 04/14/22 History atorvastatin 80 mg tablet 80 mg PO HS #30 tab 03/25/22 04/14/22 Rx aspirin 81 mg chewable tablet 81 mg PO QAM 03/27/22 04/14/22 History prednisone 10 mg tablets in a dose 10 mg PO QAM 04/14/22 04/14/22 History pack Past Med/Surg History Medical History (Updated 04/14/22 @ 21:05 by Bay Jama MD) Anxiety Carpal tunnel syndrome Depression Hearing deficit Left Hypercholesteremia Hypertension Osteoarthritis Peripheral vascular disease RLE stent (Dr Acevedo/2017) Stenosis of right internal carotid artery Surgical History History of carpal tunnel release Left CTR: 12/22/19: MAC sedation at [facility] [place] History of colonoscopy Hx of excision of epidermal inclusion cyst Dr. 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 NAD. Cooperative. HEENT: Atraumatic, normocephalic. Pulm: CTAB A&P. -wheezes, -rales, -rhonchi. Symmetrical chest rise. No increase work of breathing. No respiratory distress. Cardiac: RRR, -mrg. Radial pulses intact and symmetrical. No LE edema. Chest: no pain to palpation of sternum Abdominal: soft, non-tender, non-distended, BS x 4 Skin: warm, dry, no rash Results & Data Results & Data ([facility]) Vital Signs (Past 12 Hours) Vital Signs Temp Pulse Pulse Resp BP BP Pulse Ox 04/14/22 20:00 61 21 127/61 98 04/14/22 19:00 64 21 98 04/14/22 18:38 97 04/14/22 17:42 97 04/14/22 17:28 36.9 C 68 20 144/85 H 96 Supervising Physician Co-Signing Physician Notes Attending addendum: I have physically seen this patient, have supervised the medical residents activities, and agree with the H&P unless as otherwise noted. Assessment and Plan: NSTEMI/complete heart block status post pacer/hypertension- The patient will be admitted to telemetry for serial cardiac enzymes, serial EKG's, cardiac rhythm monitoring and a 2-D echocardiogram with Dopplers. Continue aspirin 81 mg daily, status post 324 mg in ED Heparin drip without bolus Check fasting lipid panel and hemoglobin A1c EKG with lateral ST segment changes suggesting ischemia Consult cardiology History of melena- Occurred while on Plavix which has since been discontinued Hemoccult stools, concerned regarding aspirin and heparin use. If recurs, will need to stop/reverse and consult gastroenterology Follow closely H&H Right ICA stenosis- Scheduled for CEA with Dr. Acevedo on 05/07 Remaining orders and notations as noted Resident Activity Tracking Resident Involvement: Resident Care Provided Care Provided: Adult [facility]
[2022-04-14] MEDS ORDERED: Heparin IV Adult Wt-Based Standard WITH Bolus Protocol IV STA (21:00)
[2022-04-14 21:07] LABS: Magnesium 2.1 mg/dl (1.7-2.4); Potassium 4.6 mmol/L (3.5-5.1)
[2022-04-14 21:29] LABS: Troponin I High Sensitivity 2698.9 pg/ml (0-20)
[2022-04-14] MEDS ORDERED: ONDANSETRON INJ 2 MG/ML 2 ML VIAL IV PRN (22:15)
[2022-04-14] MEDS ORDERED: ACETAMINOPHEN 325 MG TAB PO PRN (22:15)
[2022-04-14] MEDS ORDERED: LORazepam 1 MG TAB PO PRN (22:15)
[2022-04-14] MEDS ORDERED: NITROGLYCERIN SL 0.4 MG/TAB TAB SL PRN (22:15)
[2022-04-14] MEDS ORDERED: ATORVASTATIN 40 MG TAB PO SCH (22:15)
[2022-04-14] MEDS ORDERED: HEPARIN SOD (PORCINE) 1000 UNIT/ML IV ONE (22:30)
[2022-04-14] MEDS: HEPARIN SODIUM/DEXTROSE 25,000 UNITS/500 ML BAG IV SCH (23:06)
--- NOTE | 2022-04-15 05:13 | Billing Data ---
Date of Service April 15, 2022 Coding Level of Care Code 73849 Initial Inpt Care Lvl 3
[2022-04-15 05:53] LABS: Basophils # (auto) 0.03 K/uL (0-0.2); Basophils % (auto) 0.2 %; Eosinophils # (auto) 0.16 K/uL (0-0.5); Eosinophils % (auto) 1.3 %; Hematocrit (blood only) 40.6 % (42-52); Hemoglobin 13.6 g/dL (14.0-18.0); Immature Granulocytes # (auto) 0.05 K/uL (0.00-0.02); Immature Granulocytes % (auto) 0.4 %; Lymphocytes # (auto) 4.25 K/uL (1.2-3.4); Lymphocytes % (auto) 34.6 %; Mean Corpuscular Hemoglobin 30.1 pg (25-34); Mean Corpuscular Hgb Conc 33.5 g/dL (32-36); Mean Corpuscular Volume 89.8 fL (80-100); Mean Platelet Volume 9.8 fL (7.4-10.4); Monocytes # (auto) 1.14 K/uL (0.11-0.59); Monocytes % (auto) 9.3 %; Neutrophils # (auto) 6.64 K/uL (1.4-6.5); Neutrophils % (auto) 54.2 %; Platelet Count 257 K/uL (130-400); RDW Coefficient of Variation 12.8 % (11.5-14.5); RDW Standard Deviation 41.7 fL (36.4-46.3); Red Blood Count 4.52 M/uL (4.7-6.1); White Blood Count 12.27 K/uL (4.8-10.8)
[2022-04-15 06:39] LABS: Calcium 8.8 mg/dl (8.5-10.1); Creatinine Clr Calc Pharmacy 95.2 ml/min; Est GFR (African American) 103.4 ml/min; Est GFR (Non-African American) 89.2 ml/min; Magnesium 2.1 mg/dl (1.7-2.4)
--- NOTE | 2022-04-15 06:40 | Electrocardiogram Report ---
Test Reason : Blood Pressure : / mmHG Vent. Rate : 068 BPM Atrial Rate : 068 BPM P-R Int : 234 ms QRS Dur : 156 ms QT Int : 442 ms P-R-T Axes : 001 102 030 degrees QTc Int : 469 ms Poor data quality, interpretation may be adversely affected Atrial-paced rhythm with prolonged AV conduction Right bundle branch block T wave abnormality, consider anterolateral ischemia Abnormal ECG When compared with ECG of 27-MAR-2022 10:38, T wave inversion now evident in Anterior leads Confirmed by Thomas Yin ([id number]) on 04/15/2022 6:40:16 AM Referred By: REFERRED SELF Confirmed By:Thomas Yin
[2022-04-15 06:55] LABS: Partial Thromboplastin Ratio 4.4
--- NOTE | 2022-04-15 06:58 | Electrocardiogram Report ---
Test Reason : Blood Pressure : / mmHG Vent. Rate : 060 BPM Atrial Rate : 060 BPM P-R Int : 224 ms QRS Dur : 154 ms QT Int : 468 ms P-R-T Axes : -26 148 149 degrees QTc Int : 468 ms Atrial-paced rhythm with prolonged AV conduction Right bundle branch block T wave abnormality, consider anterolateral ischemia Abnormal ECG When compared with ECG of 14-APR-2022 17:42, QRS axis Shifted right T wave inversion more evident in Lateral leads Confirmed by Thomas Yin ([id number]) on 04/15/2022 6:58:09 AM Referred By: REFERRED SELF Confirmed By:Thomas Yin
[2022-04-15 07:15] LABS: Partial Thromboplastin Time 122.1 Seconds (21.0-31.0)
--- NOTE | 2022-04-15 08:41 | Hospitalist Progress Note ---
Date of Service April 15, 2022 Assessment & Plan (1) Non-ST elevation (NSTEMI) myocardial infarction: Plan: Ayad Laguerre is a 71yo male with PMHx significant for symptomatic complete heart block (s/p PPM placement on 03/25/[address] Ortez), significant right ICA stenosis (found 3 weeks ago, was on Plavix), and chronic headaches who presented to [facility] ED on 04/14 for headaches and chest pain. NSTEMI Typical angina symptoms, with EKG showing ST depressions and T-wave inversions in anterolateral leads, hsTroponin elevated at 387.3->2698->7323. Patient's chest pain is currently resolved but he still has mild headache. - Aspirin 324mg Heparin gtt with bolus, high-intensity statin - TTE ordered (note: TTE on 03/23 with EF 50-55% but with akinesis of basal inferior and basal inferoseptal wall segments) - Cardiology consulted -discussion of left heart cath and with melena may need GI eval for fitness to go home on DAPT if intervention performed Right ICA Stenosis Per CT imaging several weeks ago, was on Plavix until one week ago when he developed melena, and has since stopped it. - will defer to Cardiology recommendations regarding Plavix/dual anti-platelet therapy - patient currently scheduled for CEA with Dr. Acevedo on 05/07 - this may need to be delayed based on current hospitalization H/o Melena Several melenotic stools that occurred one week ago in context of Plavix, and have since resolved since stopping Plavix. Hgb WNL here in the ED, and patient is hemodynamically stable. - now on Aspirin and Heparin gtt Leukocytosis Possibly due to acute inflammation in setting of above symptoms. No s/s infection. Hemodynamically stable. - trend in AM DVT Prophylaxis: Heparin gtt Code Status: full code (2) Stenosis of right internal carotid artery: Plan: Pt has 90% R ICA stenosis, slated for vascular surgery intervention in the near future, was on plavix which seemed to help his headaches but was stopped due to melena Plan: DVT scd due to melena on plavix Pt is a full code Admission and Anticipated Discharge Date Admission Date: April 14, 2022 Subjective this pt is pain free since admit, maybe in connection with heparin gtt, did personally speak to cardiology as history does sound convincing for angina and troponins have risen without ACS suggesting NSTEMI Review of Systems Review of Systems: symptoms are resolved no headache, no visual changes no speech or swallowing issues no chest pain, pressure or palpitations no shortness of breath, cough or wheezes no abdominal pain, nausea or vomiting, diarrhea or constipation no dysuria, hematuria or frequency no focal joint pain or swelling no back pain, CVA tenderness or radicular pain no bruising, bleeding or rashes no focal signs of weakness or numbness or altered sensation no complaints of anxiety or depression.. Physical Exam Physical Exam: The patient appeared well nourished and normally developed. Vital signs as documented. Head exam is normocephalic atraumatic Neck is without JVD, thyromegaly, or carotid bruits. Lungs are clear to auscultation, no focal loss of breath sounds Cardiac exam, Rhythm is regular.. No murmurs, rubs or gallops. Abdominal exam reveals normal bowel sounds, soft non tender, no masses Extremities are nonedematous and both pedal pulses are present Neurologic exam is alert and oriented, no focal loss of strength or sensation Skin is without bruises or rashes Psychologically is without concerns for anxiety or depression.. Results & Data Results & Data ([facility]) Vital Signs (Past 12 Hours) Vital Signs Temp Pulse Pulse Resp BP BP Pulse Ox 04/15/22 07:00 98.1 F 61 16 134/79 98 04/15/22 03:12 63 04/15/22 02:48 97.9 F 72 16 124/81 96 04/15/22 01:43 62 16 119/74 98 04/15/22 00:50 65 16 110/73 95 04/15/22 00:49 65 16 110/73 95 04/15/22 00:48 Pulse Ox 04/15/22 07:00 04/15/22 03:12 04/15/22 02:48 04/15/22 01:43 04/15/22 00:50 04/15/22 00:49 04/15/22 00:48 95 PG Care Time/CCT Total # of Minutes Spent Total Time Spent with Patient: Total time spent is greater than 50% in coordination of care (as documented) at patient's floor/unit and/or counseling patient: Coding Level of Care Code 50614 Subseq Hosp Care Lvl 3 Diagnoses Non-ST elevation (NSTEMI) myocardial infarction I21.4 Stenosis of right internal carotid artery I65.21
[2022-04-15] MEDS: ASPIRIN 81 MG ECTAB PO SCH (08:50)
[2022-04-15] MEDS: ATORVASTATIN 40 MG TAB PO SCH (08:50)
[2022-04-15 10:01] LABS: Partial Thromboplastin Ratio 1.5; Partial Thromboplastin Time 39.9 Seconds (21.0-31.0)
[2022-04-15] MEDS: ATENOLOL 50 MG TABLET PO SCH (11:34)
--- NOTE | 2022-04-15 11:58 | Cardiology Consultation ---
Date of Consultation April 15, 2022 Assessment & Plan (1) Acute non-ST elevation myocardial infarction (NSTEMI): -classic history, elevated troponin, and anterolateral T-wave changes. -agree with intravenous heparin. -agree with aspirin. -continue atenolol. -placed on a cardiac catheterization scheduled for tomorrow morning. -emergent catheterization should he develop recurrent chest discomfort. (2) Melena: -concerning as he will likely require anti-platelet therapy. -he is scheduled for an outpatient colonoscopy on Friday. (3) Stenosis of right internal carotid artery: -scheduled for carotid endarterectomy in late April. (4) Pacemaker: -DDD device placed on March 25 for intermittent complete heart block. History of Present Illness Attending Physician: Jefferson Blue MD History of Present Illness Mr. Laguerre is a 71-year-old male admitted with a non ST elevation IA yesterday. This consultation was ordered to assist in his cardiac management. Of note, patient typically follows with Dr. Ortez in the outpatient setting. The patient was in his usual state of health until approximately 1 week prior to presentation. Patient began to notice intermittent episodes of a headache, cheek and jaw discomfort, and substernal chest heaviness which would occur with physical exertion. His discomfort resolved with rest over approximately 5-10 minutes. On the day of presentation, the patient experienced 3 episodes of discomfort as described. However, the 3rd episode lasted for over an hour before he finally presented to the emergency room for evaluation. On arrival here, patient receive sublingual nitroglycerin and his discomfort resolved. Initial troponin was elevated any demonstrated anterolateral T-wave abnormalities which were new compared with a tracing done on March 27. Hospitalization was recommended. He was hospitalized here from March 22 through the with syncope and presyncope secondary to intermittent complete heart block. He had a dual-chamber pacemaker placed on March 25. As per his workup, he was found to have a 90% right internal carotid artery stenosis. He is scheduled for carotid endarterectomy in late April. He was placed on aspirin and Plavix prophylactically. Approximately 1 week ago, the patient developed melena and contact his primary care physician. He was advised he discontinue aspirin and Plavix. His melena has since resolved. Currently, patient is resting comfortably in bed without complaints. Past medical and surgical history 1. Hypertension 2. Hypercholesterolemia 3. Intermittent complete heart block 4. DDD pacemaker-March 25, 2022 5. Cerebrovascular disease-90% right ICA stenosis 6. Peripheral vascular disease 7. Right lower extremity stent-2017 8. Left carpal tunnel release-December 2019 9. 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 Allergies Allergy/AdvReac Type Severity Reaction Status Date / Time No Known Allergies Allergy Verified 04/14/22 18:14 Home Medications Medication Instructions Recorded Confirmed Type atenolol 50 mg tablet 50 mg PO QAM tab 06/10/19 04/14/22 History lorazepam 1 mg tablet 1 mg PO HS PRN tab 06/10/19 04/14/22 History atorvastatin 80 mg tablet 80 mg PO HS #30 tab 03/25/22 04/14/22 Rx aspirin 81 mg chewable tablet 81 mg PO QAM 03/27/22 04/14/22 History prednisone 10 mg tablets in a dose 10 mg PO QAM 04/14/22 04/14/22 History pack Patient History Medical History (Updated 04/15/22 @ 11:54 by Erik Bond MD) Anxiety Carpal tunnel syndrome Depression Hearing deficit Left Hypercholesteremia Hypertension Osteoarthritis Peripheral vascular disease RLE stent (Dr Acevedo/2017) Stenosis of right internal carotid artery Surgical History History of carpal tunnel release Left CTR: 12/22/19: MAC sedation at [facility] [place] History of colonoscopy Hx of excision of epidermal inclusion cyst Dr. Castro 07-01-19 Hx of left cataract extraction Hx of left knee surgery Arthroscopy (20 years ago) Family History Brother Stroke Social History Smoking Status: Former smoker Tobacco Type: Cigarettes Cigarettes Per Day: 2 pk per week; Second Hand Exposure: No; Do You Dip or Chew Tobacco: No; Tobacco Cessation Education Requested by Patient: No Hx Alcohol Use: Yes Alcohol type: hard liquor Hx Substance Use: No Preferred Language: [place] Communication Ability: Effective Director Marketing Required: No Beliefs That Will Affect Care: None marital status: Current Living Situation: Alone current occupational status: 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 HEENT exam is negative. Neck is supple with full carotid upstrokes. There is a quiet right-sided carotid bruit. Jugular venous pressure is flat at 90. There is no thyromegaly. Cardiovascular exam reveals a regular rhythm with a normal S1 and S2. No S3, S4, or murmurs are noted. Lungs are clear without rales, rhonchi, or wheezes. Abdomen is soft and nontender without bruits. Extremities reveal intact radial artery and posterior tibial pulses bilaterally. There is no peripheral edema. Results & Data ([facility]) Vital Signs (Past 12 Hours) Vital Signs Temp Pulse Pulse Resp BP BP Pulse Ox 04/15/22 09:40 60 04/15/22 07:00 36.7 C 61 16 134/79 98 04/15/22 03:12 63 04/15/22 02:48 36.6 C 72 16 124/81 96 04/15/22 01:43 62 16 119/74 98 04/15/22 00:50 65 16 110/73 95 04/15/22 00:49 65 16 110/73 95 04/15/22 00:48 Pulse Ox 04/15/22 09:40 04/15/22 07:00 04/15/22 03:12 04/15/22 02:48 04/15/22 01:43 04/15/22 00:50 04/15/22 00:49 04/15/22 00:48 95 Laboratory Results CBC notes hemoglobin 13.6, crit 40.6, white count 12.27, platelet count [id number]. Electrolytes note a sodium of 139, potassium 4.0, chloride 106, bicarb 26, BUN 16, creatinine 0.8, and glucose of 86. Initial high sensitivity troponin was 387.3 with follow-up values of 2698.9 and 7323. Diagnostic Findings EKG notes atrial pacing with prolonged AV conduction. There is a complete right bundle branch block and new anterolateral T-wave inversions when compared with the study done on Mar 27 2022. PG Care Time/CCT Total # of Minutes Spent Total Time Spent with Patient: Total time spent is greater than 50% in coordination of care (as documented) at patient's floor/unit and/or counseling patient: Coding Level of Care Code 77664 Initial Inpt Care Lvl 3 Diagnoses Acute non-ST elevation myocardial infarction (NSTEMI) I21.4 Melena K92.1 Stenosis of right internal carotid artery I65.21 Pacemaker Z95.0
--- NOTE | 2022-04-15 13:01 | XCELERA ---
[id number]
[2022-04-15 16:24] LABS: Partial Thromboplastin Ratio 1.8
[2022-04-15 16:27] LABS: Partial Thromboplastin Time 48.6 Seconds (21.0-31.0)
[2022-04-15] MEDS: HEPARIN SODIUM/DEXTROSE 25,000 UNITS/500 ML BAG IV SCH (21:12)
[2022-04-16 07:30] LABS: Partial Thromboplastin Time 55.2 Seconds (21.0-31.0)
[2022-04-16] MEDS: ATORVASTATIN 40 MG TAB PO SCH (08:11)
[2022-04-16] MEDS: ATENOLOL 50 MG TABLET PO SCH (08:11)
[2022-04-16] MEDS: ASPIRIN 81 MG ECTAB PO SCH (08:11)
[2022-04-16] MEDS ORDERED: niCARdipine HCL INJ 2.5 MG/ML 10 ML AMP ONE (08:57)
[2022-04-16] MEDS ORDERED: MIDAZOLAM HCL 1 MG/ML 2ML VIAL ONE (08:57)
[2022-04-16] MEDS ORDERED: HEPARIN (PORCINE) 1000 UNIT/ML 10 ML (CATH LAB USE ONLY) ONE (08:57)
[2022-04-16] MEDS ORDERED: fentaNYL citrate 100 MCG/2 ML VIAL ONE (08:57)
[2022-04-16] MEDS ORDERED: NITROGLYCERIN/D5W 100MCG/ML 20ML SYR ONE (08:58)
[2022-04-16] MEDS ORDERED: LIDOCAINE 1% LOCAL 20 ML VIAL ONE (08:58)
--- NOTE | 2022-04-16 09:08 | Pre Anesthesia Assessment ---
Date of Service April 16, 2022 Pre Sedation Assessment Vital Signs Temp Pulse Pulse Resp BP Pulse Ox 04/16/22 08:53 61 121/90 96 04/16/22 07:39 97.9 F 69 20 132/84 96 04/16/22 02:49 98.4 F 67 14 111/72 96 04/15/22 23:00 97.9 F 64 14 137/80 97 04/15/22 22:57 63 04/15/22 19:58 98.4 F 60 16 104/70 95 04/15/22 16:04 60 04/15/22 15:00 97.9 F 52 L 18 111/75 97 04/15/22 11:38 97.9 F 65 18 123/79 95 04/15/22 09:40 60 Cardiovascular RRR, no murmur, no edema Respiratory normal respiratory effort, lungs clear to auscultation Pre-Sedation Airway Assessment Smoking Status: Former smoker Hx Sleep Apnea: No Hx Difficult Intubation: No Short, Thick Neck: No Thyromental Distance: > or= 3.5 Finger Breadths Oral Cavity: + WNL Mallampati Class: III ASA: ASA3 NPO Status Date of Last Intake of Fluids: 04/16/22 Time of Last Intake of Fluids: 07:00 Last Oral Intake of Fluids Comment: sip of water with pills Date of Last Intake of Solid Food: 04/15/22 Procedure Planning Contraindications for Sedation: none Current Medications Reviewed: Yes Notes The planned sedation has been discussed with the patient. Informed Consent was obtained. I have identified the patient, determined the appropriateness of sedation and have assessed the patient immediately prior to the procedure. All medicine(s) and interventions are by my order.
[2022-04-16] MEDS ORDERED: DOCUSATE SODIUM/SENNA 50/8.6MG TAB PO SCH (09:15)
[2022-04-16] MEDS ORDERED: ADENOSINE IV SOLN 3 MG/ML 20 ML VIAL IV ONE (09:44)
[2022-04-16 09:45] LABS: Basophils # (auto) 0.03 K/uL (0-0.2); Basophils % (auto) 0.3 %; Eosinophils # (auto) 0.39 K/uL (0-0.5); Eosinophils % (auto) 3.8 %; Hematocrit (blood only) 41.9 % (42-52); Immature Granulocytes # (auto) 0.05 K/uL (0.00-0.02); Immature Granulocytes % (auto) 0.5 %; Lymphocytes # (auto) 4.26 K/uL (1.2-3.4); Lymphocytes % (auto) 41.4 %; Mean Corpuscular Hemoglobin 30.4 pg (25-34); Mean Corpuscular Volume 91.1 fL (80-100); Mean Platelet Volume 10.5 fL (7.4-10.4); Monocytes # (auto) 1.01 K/uL (0.11-0.59); Monocytes % (auto) 9.8 %; Neutrophils # (auto) 4.54 K/uL (1.4-6.5); Neutrophils % (auto) 44.2 %; Platelet Count 252 K/uL (130-400); RDW Coefficient of Variation 12.9 % (11.5-14.5); RDW Standard Deviation 42.5 fL (36.4-46.3); White Blood Count 10.28 K/uL (4.8-10.8)
[2022-04-16 09:50] LABS: Mean Corpuscular Hgb Conc 33.4 g/dL (32-36)
--- NOTE | 2022-04-16 10:00 | Post Anesthesia Assessment ---
Date of Service April 16, 2022 Post Sedation Assessment Vital Signs Temp Pulse Pulse Resp BP Pulse Ox 04/16/22 08:53 61 121/90 96 04/16/22 07:39 97.9 F 69 20 132/84 96 04/16/22 02:49 98.4 F 67 14 111/72 96 04/15/22 23:00 97.9 F 64 14 137/80 97 04/15/22 22:57 63 04/15/22 19:58 98.4 F 60 16 104/70 95 04/15/22 16:04 60 04/15/22 15:00 97.9 F 52 L 18 111/75 97 04/15/22 11:38 97.9 F 65 18 123/79 95 Recovery Score Activity: Moves 4 extremities Respiration: Deep Breath/Cough Circulation: +/-20% PreAnes Value Consciousness: Fully Awake Oxygen Saturation: O2 needed for >90% Discharge Sedation Level of Care: Fast Track Phase II Post Sedation Plan On clinical assessment, the patient appears to have tolerated the sedation without complications. Patient is recovering as anticipated. Patient will continue to be monitored by nursing and may be discharged when sedation discharge criteria are met per below protocol. Upon Completions of procedure up to 15 minutes continue every 5 minute vital signs and the P.A.R. score; then discharge to a Phase I or Fast Track to Phase II per the following guidelines: * Discharge Patient to appropriate Phase II area if PAR is 8 or greater or return to pre- procedure baseline. The post - procedure orders will be as directed. * If PAR score is less than 8 or not return to pre-procedure baseline then pat ient will follow Phase I monitoring till PAR is reached for Phase II. The Phase I may be done in procedure room or may call to secure a Phase I area. * If naloxone or flumazenil are used for reversal, hold in Phase I for continued monitoring from when last reversal dose was given for a minimum of 60 minutes or longer pending the nurse and/or physician discretion of patient condition before discharge to Phase II. Please call the Sedation Physician to re-evaluate and complete post-note for discharge to Phase II area. Do NOT discharge from procedure sedation or Phase 1 until post- sedation evaluation note is complete by procedure /sedation MD Sedation Discharge Instructions to be given to the patient at discharge to home.
[2022-04-16 10:13] LABS: Troponin I High Sensitivity 1941.8 pg/ml (0-20)
[2022-04-16] MEDS ORDERED: SODIUM CHLORIDE 0.9% 1000ML 1,000 ML IV SCH (10:15)
[2022-04-16 10:29] LABS: BUN Creatinine Ratio 18.7 (10-20); Calcium 8.6 mg/dl (8.5-10.1); Creatinine Clr Calc Pharmacy 82.9 ml/min; Est GFR (African American) 97.2 ml/min; Est GFR (Non-African American) 83.9 ml/min; Potassium 4.1 mmol/L (3.5-5.1)
--- NOTE | 2022-04-16 10:59 | Cardiac Catheterization ---
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 Cardiac Status Clinical evaluation leading to the procedure CAD Presenation: Non STEMI Anginal Classification: CCS IV Heart Failure: No Diagnostic Physicians Name: Toribio Palm MD Closure Device Recommendations: CABG Cardiac Cath Procedure Full Procedure Date April 16, 2022 Pre-Procedure Diagnosis Pre-Procedure Diagnosis: Non STEMI AUC Score AUC Score: 8 Post-Procedure Diagnosis Post-Procedure Diagnosis: Severe CAD and Normal Intracardiac Pressures Procedure(s) Performed Procedure(s) Performed: Coronary Angiography, Left Heart Cath, IVUS and Fractional Flow [employer] Toribio Palm MD Elephant Tamer(s) Showers Estimated Blood Loss Estimated Blood Loss: 10 Medication(s) Medication(s): Fentanyl, Heparin, Lidocaine 1%, Nicardipine, Nitroglycerin and Versed Summary of Findings Indication: NSTEMI Access: 6 Fr right radial artery Catheters: [place], pigtail, EBU 3.5 guide Findings: LM -30% distal stenosis LAD -calcified, 95% hazy ostial stenosis. Remainder of vessel medium caliber 50% stenosis at bifurcation with first diagonal, 40-50% stenosis in distal vessel as wraps around apex. Medium D1 with mild proximal disease. Circumflex -medium caliber, 50% hazy mid segment stenosis. OM3 without significant disease. RCA -dominant, small caliber, 98% calcified, ostial stenosis, 95% mid segment stenosis. DOROTHY I-II flow in distal vessel. IVUS/FFR procedure: -Left main cannulated with EBU 3.5 guide -BMW wire placed into distal OM 3 [place] IVUS catheter placed in the mid LAD, unable to pass across calcified mid stenosis. Pullback revealed moderately calcified vessel with diffuse disease up to 70% in the midsegment and at the ostium. Calcified disease at distal left main. Remainder of left main without significant disease. IVUS catheter removed and ACIST Catheter placed into distal circumflex (some difficulty passing catheter across mid stenosis) -Pd/Pa 0.98 -FFR 0.77 -Coronary angiography revealed no apparent complications post wire/catheter removal LVEDP -6 Arterial Closure: TR band Summary: 1. Severe multivessel coronary artery disease -30% distal left main 95% ostial LAD, 50% mid LAD 40% ostial, 50% hazy mid circumflex (70% ostial, 70% mid circumflex by IVUS, FFR 0.77) 98% ostial, 95% mid RCA with DOROTHY I-II distal flow 2. Normal intracardiac filling pressure Recommendations: Referral to [facility] cardiac surgery (spoke with Dr. Delacruz). Hemodynamics Rest Ao:: 89/61/73 Final Ao: 102/60/77 LV: 100/6 Recommendations Recommendations: CABG Specimens Specimens: None Radiation Exposure (mGy) 1341 Contrast (mls) 60 Drains Drains: None Anesthesia Moderate [id number] Procedural Complication(s) None Disposition PCU I attest to the content of the Intraoperative Record and any orders documented therein. Any exceptions are noted below. [facility] Card Cath Procedure Codes Cardiac Catheterization Procedure 1: Cardiovascular Cath Procedures: 01573 Coronaries and LHC (+/-LV) Procedure 2: Cardiovascular Cath Procedures: 91401 (Doppler) Pressure Wire Therapeutic Services & Ancillary Proc Procedure 1: Cardiovascular Tx and Anc Procedures: 00019 IV Ultrasound (Coronary or Graft) Moderate Sedation Procedure 1: Sedation/Anesthesia: 80262 Mod Sedation by the same physician;Init15 Min Child Age 5 & Up Procedure 2: Sedation/Anesthesia: 32435 Mod Sedation by the same physician; Ea [id number] Minutes PG Care Time/CCT Total # of Minutes Spent Total Time Spent with Patient: Total time spent is greater than 50% in coordination of care (as documented) at patient's floor/unit and/or counseling patient:
--- NOTE | 2022-04-16 11:58 | Discharge Summary ---
Date of Service April 16, 2022 Admission HPI Per Admitting Provider Ayad Laguerre is a 71yo male with PMHx significant for symptomatic complete heart block (s/p PPM placement on 03/25/[address] Ortez), significant right ICA stenosis (found 3 weeks ago, was on Plavix), and chronic headaches who presented to [facility] ED on 04/14 for chest pain. Patient reports that he had episodes involving headache and substernal chest pressure radiating down both arms with arm heaviness, which usually occur during light physical activity, last 10-15 minutes, and resolve with rest. These episodes have been occurring at least several times per week for more than one month. Of note patient was admitted herre ~3 weeks ago for symptomatic complete heart block as well as elevated Troponin - he had PPM placed by Dr. Ortez and was started on Aspirin and high dose statin during that hospitalization, without cardiac catheterization. After that hospitalization the patient continued to have the above-mentioned episodes and was found to have 90% occlusion of right ICA - vascular surgery was consulted and recommended that patient be started on Plavix as well, and he was scheduled for CEA with Dr. Acevedo on 05/07. Patient reports that his chest pain/headache episodes resolved while on Plavix. However he started to have one melanotic stool per day which started ~1 week ago - this occurred for 2-3 days and then patient called PCP who told him to stop taking Aspirin and Plavix. Since then his melena resolved and he now has one normal stool per day, but he has started to have daily headache/chest pain episodes again. Of note patient was reportedly scheduled for colonoscopy next week for melena, and he was started on Prednisone taper yesterday by PCP, for the headache/chest pain that has been persistent. Then today, the patient had three such episodes within several hours of each other. All episodes occurred with light physical activity; the first two episodes resolved after 10-15 minutes with rest but the third episode persisted. Patient was brought to the ED by his daughter - no nitro or Aspirin given en route. Patient denies h/o heart disease or previous heart catheterization. He reports that his father had "chest pain, an irregular heart beat, and took nitro regularly". Otherwise denies family history of heart disease or MD. Patient is a former smoker but quit "years ago". He also drinks several times per week - beer and hard liquor. Would not specify how much. Denies other drug use. In the ED the patient was hemodynamically stable. hsTroponin 387.[address]ressions and T wave inversions in anterolateral leads (is atrial-paced rhythm). Otherwise labs showed WBC 15.97 (neutrophilic predominance, mild L shift). CBC/BMP otherwise WNL. CXR with cardiomegaly but no evidence of acute cardiopulmonary disease. COVID-19 negative. Patient was given Aspirin 324mg PO x1 in ED. Principal Diagnosis Severe CAD, NSTEMI Discharge Exam Constitutional WD/WN, vitals as above Eyes + anicteric sclerae ENMT external ear and nose normal, oropharynx normal Neck trachea midline, no thyromegaly Respiratory normal respiratory effort, lungs clear to auscultation Cardiovascular RRR, no murmur, no edema Chest (Breasts) Chest: normal inspection of chest Gastrointestinal (Abdomen) normal bowel sounds, soft, nontender, no hepatosplenomegaly Musculoskeletal Extremities: extremities normal to inspection; no cyanosis and no clubbing Skin no rashes, warm and dry Neurologic moves all extremities and awake; no focal motor deficits Psychiatric A+Ox3, euthymic affect Lymphatic no lymphedema Discharge Data Allergies Allergy/AdvReac Type Severity Reaction Status Date / Time No Known Allergies Allergy Verified 04/14/22 18:14 Consultations 04/14/22 19:19 ED Decision to Admit Stat 04/14/22 22:15 Consult Cardiology Routine 04/16/22 11:28 Burn CD for patient Stat Procedures Performed Operation Date: 04/16/22 09:30 Actual Procedures s Cineradiography w/Routine Exam - Momo Palm MD p Cath, Left with Cors and Vent - Momo Palm MD s Ultrasound Vascular Access - Momo Palm MD s IVUS Coronary Single Vessel - Momo Palm MD s Fraction Flow [place] SGL Ves - Momo Palm MD Ordered Studies 04/16/22 06:36 CL Cath Imgs for PACS use only Routine 04/16/22 10:08 CL IVUS Coronary Single Vessel Routine ECHO Hospital Course (1) Non-ST elevation (NSTEMI) myocardial infarction: Ayad Laguerre is a 71yo male with PMHx significant for symptomatic complete heart block (s/p PPM placement on 03/25/[address] Ortez), significant right ICA stenosis (found 3 weeks ago, was on Plavix), and chronic headaches who prese nted to [facility] ED on 04/14 for worsening headaches and chest pain. NSTEMI Typical angina symptoms, with EKG showing ST depressions and T-wave inversions in anterolateral leads, hsTroponin elevated at 387.3->2698->7323 (peak). - Aspirin 324mg Heparin gtt with bolus, high-intensity statin - TTE ordered (note: TTE on 03/23 with EF 50-55% but with akinesis of basal inferior and basal inferoseptal wall segments) - Cardiology consulted- underwent left heart cath which showed triple vessel disease and CABG recommended--> [place] [facility] [place] Delacruz [place] Surgery -with h/o melena, would watch for recurrent GI bleeding with antiplatelets Right ICA Stenosis Per CT imaging several weeks ago, was on Plavix until one week ago when he developed melena, and has since stopped it. Now back on ASA-watch for GIB - patient currently scheduled for Right CEA with Dr. Acevedo on 05/07 H/o Melena Several melenotic stools that occurred one week ago in context of Plavix, and have since resolved since stopping Plavix. Hgb WNL here, and patient is hemodynamically stable. - now on Aspirin and Heparin gtt and no BM since admission Leukocytosis Possibly due to acute inflammation in setting of above symptoms. No s/s infection. Hemodynamically stable. - trend DVT Prophylaxis: Heparin gtt Code Status: full code Dispo-transfer to [facility] (2) CAD (coronary artery disease), [place] coronary artery: (3) Stenosis of right internal carotid artery: Pt has 90% R ICA stenosis, slated for vascular surgery intervention in the near future, was on plavix which seemed to help his headaches but was stopped due to melena (4) Melena: (5) Leukocytosis: DVT scd due to melena on plavix Pt is a full code Total Time Total Time Spent Total Time Spent (In Minutes): 45 min Discharge Plan Discharge Items Patient Disposition: Transfer Acute Care Hospital Reason For Visit: NSTEMI Discharge Diagnosis: NSTEMI Severe CAD Condition on Discharge: Serious Activity: As commented below Lifting: None Exercise/Sports: Rest today Non-emergency contact: Primary Care Provider and Laboratory Technologist Call non-emergency contact if: you have any medication questions and your symptoms worsen Follow-up/Referrals: Christopher Mercer MD [Primary Care Provider] - Diet: Nothing by Mouth Addtl Attending Provider Instructions: Transfer to [facility] Pending Studies at Discharge: No Stand-Alone Forms: My Location Skilled Items Patient informed of condition?: Yes DNR: No Discharge Level of Care: Other Communicable Disease: No Discharge Prognosis: Stable Lines: Peripheral IV Urinary Catheter: No Medications and DC Order Prescriptions: Continued atenolol 50 mg tablet 50 mg PO QAM RF: 0 lorazepam 1 mg tablet 1 mg PO HS PRN (Reason: anxiety) RF: 0 aspirin [Aspirin Child] 81 mg Tablet,Chewable 81 mg PO QAM RF: 0 atorvastatin 80 mg tablet 80 mg PO HS Qty: 30 RF: 0 Discontinued prednisone 10 mg tablets,dose pack 10 mg PO QAM RF: 0 Discharge Orders: Discharge Order (Routine); Ordered 04/16/22 Ordered By: Stefani Bravo Admission Data Admit Date/Time: 04/14/22 21:00 Attending Provider: Stefani Bravo Admit Provider: Bay Jama Primary Care Provider: Christopher Mercer Other Providers: Jefferson Blue ; Erik Bond Coding Level of Care Code D/C DAY MANAGEMENT >30 MINS Diagnoses Non-ST elevation (NSTEMI) myocardial infarction I21.4 Stenosis of right internal carotid artery I65.21 CAD (coronary artery disease), [place] coronary artery I25.10 Melena K92.1 Leukocytosis D72.829
== END 2022-04-16 13:32 | disposition short-term general hospital (02) | DRG 282 ==
LOC: ED 17:19 → EDINP 21:00 → SUATTDRO 21:00 → 2S 04-15 01:43

== ENCOUNTER 2022-07-30 05:44 | Inpatient (IN) ==
--- NOTE | 2022-07-01 15:56 | PAT Medication Instructions ---
Medication Instructions Date of Service July 01, 2022 Home Medications Medication Instructions Recorded atorvastatin 80 mg tablet 80 mg PO HS #90 tabs 05/29/22 furosemide 20 mg tablet 20 mg PO DAILY #30 tabs 05/29/22 aspirin 81 mg chewable tablet 81 mg PO QAM lorazepam 0.5 mg tablet 0.5 mg PO .COMPLEX PRN Anxiety lorazepam 0.5 mg tablet 1 mg PO HS metoprolol tartrate 25 mg tablet 25 mg PO BID atorvastatin 80 mg tablet 80 mg PO HS furosemide 20 mg tablet 20 mg PO DAILY gabapentin 300 mg capsule 300 mg PO TID potassium bicarbonate-citric acid 10 mEq effervescent tablet 10 meq PO QAM ASK your prescriber and surgeon aspirin 81 mg chewable tablet 81 mg PO QAM DO NOT take the morning of surgery furosemide 20 mg tablet 20 mg PO DAILY potassium bicarbonate-citric acid 10 mEq effervescent tablet 10 meq PO QAM Take morning of surgery With a small sip of water, OTHERWISE NOTHING TO EAT OR DRINK AFTER MIDNIGHT: lorazepam 0.5 mg tablet 0.5 mg PO .COMPLEX PRN Anxiety(if needed) metoprolol tartrate 25 mg tablet 25 mg PO BID gabapentin 300 mg capsule 300 mg PO TID Take evening before surgery lorazepam 0.5 mg tablet 0.5 mg PO .COMPLEX PRN Anxiety(if needed) lorazepam 0.5 mg tablet 1 mg PO HS metoprolol tartrate 25 mg tablet 25 mg PO BID atorvastatin 80 mg tablet 80 mg PO HS gabapentin 300 mg capsule 300 mg PO TID Other Notes If you have any questions please call us at [phone] or [phone] or [phone] or [phone]
--- NOTE | 2022-07-18 08:39 | Anesthesiology Consultation ---
Date of Service July 18, 2022 Assessment & Plan (1) Encounter for pre-operative examination: - pacemaker: Medtronic. - cardiology pre-op evaluation 07/09/22 [place]: "...Coronary artery disease--3vCABG 04/2022 (RAMIREZ to LAD, SVG to OM, diagonal). Small, dominant, diffusely diseased RCA too small for bypass...Complete heart block post dual-chamber pacemaker 03/2022...Carotid artery qodoera41% right ICA, asymptomatic. Seen by [facility] vascular surgery...Lower extremity PADRLE stent 2018 ([place])...preoperative cardiac evaluation prior to undergoing right carotid artery stenting with Dr. Acevedo. He continues to recover well from his coronary bypass surgery.. .exercising, achieving >4 METS, without anginal type symptoms. On exam appears well perfused without signs of heart failure. Blood pressure adequately controlled. From cardiac standpoint he is an acceptable risk to proceed with planned carotid stenting without additional cardiac testing/intervention prior..." - Case discussed in detail with Dr. Nagy who advised that pt is acceptable to proceed with surgery as scheduled, does not need further evaluation or testing prior to surgery from his standpoint. - COVID screening: Per assessment on 07/18/2022: Travel screen negative, no known COVID-19 positive contacts or current COVID-19 related symptoms in past 2 weeks. Pt vaccinated. To surgeon's discretion if preop COVID testing needed. Chart Review Chart Review: Acceptable Risk for Surgery and Patient seen in Pre Admission Testing Teaching & Discussion Pre-Anesthesia Teaching/Discussion Notes: Instructed NPO after midnight before surgery, except medications with 15 cc of water. Medication instructions provided according to the PAT guidelines. History Surgery Operation Date: 07/30/22 10:50 Proposed Procedures p Right Transcarotid Artery Revascularization - Ildefonso Acevedo MD Height/Weight Height: 5 ft 9 in Weight: 90.7 kg Allergies Allergy/AdvReac Type Severity Reaction Status Date / Time No Known Allergies Allergy Verified 07/09/22 13:22 Medications Home Medications Medication Instructions Recorded Confirmed Last Taken aspirin 81 mg chewable tablet 81 mg PO QAM 03/27/22 07/09/22 04/14/22 lorazepam 0.5 mg tablet 0.5 mg PO .COMPLEX PRN Anxiety 04/30/22 07/09/22 Unknown lorazepam 0.5 mg tablet 1 mg PO HS 04/30/22 07/09/22 Unknown metoprolol tartrate 25 mg tablet 25 mg PO BID 04/30/22 07/09/22 Unknown atorvastatin 80 mg tablet 80 mg PO HS #90 tabs 05/29/22 07/09/22 Unknown furosemide 20 mg tablet 20 mg PO DAILY #30 tabs 05/29/22 07/09/22 Unknown gabapentin 300 mg capsule 300 mg PO TID 05/29/22 07/09/22 Unknown potassium bicarbonate-citric acid 10 meq PO QAM 05/29/22 07/09/22 Unknown 10 mEq effervescent tablet Plavix PO QPM 07/18/22 Unknown Additional Notes: Pt was advised to ask prescriber and surgeon regarding Plavix, this was also written on provided medication instructions. He verbalized full understanding and agreement, denied questions or concerns. Past Medical History Medical History (Updated 07/18/22 @ 08:49 by Tamanna Freedman PA-C) Acute non-ST elevation myocardial infarction (NSTEMI) 03/2022 [facility]-s/p CABG x 3 04/2022, small dominant diffusely diseased RCA too small for bypass per [place] cardio records Anxiety CAD (coronary artery disease), [place] coronary artery s/p CABG x 3, small dominant diffusely diseased RCA too small for bypass Carpal tunnel syndrome Depression Headache Hearing deficit Left Hypercholesteremia Hypertension controlled, stable per pt Pacemaker 03/[address] [facility] [address] SOLOMON-MEDTRONIC- LAST CHECKED 1 MO AGO Peripheral vascular disease RLE stent (Dr Acevedo/2017) Stenosis of right internal carotid artery Syncope denies recent syncopal episodes Patient denies h/o stroke, seizures, heart failure, DM, blood clots or blood transfusions. Exercise / Class Metabolic Activity III < 4 Walking/Shop/Light housework (rare mild SOB with activities, denies chest discomfort; ongoing since CABG 04/2022; denies change or worsening; associated with MALIN, denies visual changes/dizziness/lightheadedness) Past Family History Family History Brother Stroke Past Surgical History Surgical History History of carpal tunnel release Left CTR: 12/22/19: [place] [facility] [place] of colonoscopy Hx of excision of epidermal inclusion cyst Dr. Castro 07-01- Hx of left cataract extraction Hx of left knee surgery Arthroscopy (20 years ago) S/P CABG x 3 [facility] [place] S/P cardiac catheterization 04/2022 [facility] Past Anesthesia History No Hx of Anesthesia Complications and No Family Hx of Anesthesia Complications History of PONV No Hx of PONV and No Hx of Motion Sickness Social History Smoking Status: Former smoker tobacco type: cigarettes Smoking cigarettes per day: 2 pk per week Do You Dip or Chew Tobacco: No Smoking End Date: QUIT SEVERAL MOS AGO Hx Alcohol Use: Yes (ONE PER WEEK) Alcohol type: hard liquor alcohol intake frequency: a few times a month Hx Substance Use: No substance use type: does not use Review of Systems Patient denies chest pain, snoring, witnessed apneas, reflux, fever, chills, cough, wheezing, or palpitations. Physical Exam Vital Signs Vitals BP 112/75 P 73 TEMP 98.6 SP02 98% on RA RESP 17 Physical Full cervical extension range of motion without pain TMD 3.5 finger breadths Mallampati Score 2 Dentition: intact, denies chipped or loose teeth, caps/crowns, implants or bridges Lungs: normal respiratory effort. Clear throughout to auscultation, no adventitious breath sounds Cardiac: regular rate and rhythm, no murmurs noted Lab Results Anesthesia Preop Results Results Anesthesia Widget: WBC 7.52 K/ul (4.8-10.8) 07/18/22 Hgb 14.8 g/dl (14.0-18.0) 07/18/22 Hct 44.3 % (40.1-51.0) 07/18/22 Plt 251 K/uL (130-400) 07/18/22 Na 138 mmol/L (136-145) 07/18/22 K 4.7 mmol/L (3.5-5.1) 07/18/22 Cl 105 mmol/L (98-107) 07/18/22 CO2 29 mmol/L (21-32) 07/18/22 BUN 13 mg/dl (6-23) 07/18/22 Creat 0.69 mg/dl (0.6-1.4) 07/18/22 Glucose Level 90 mg/dl (70-99(Fasting)) 07/18/22 PT 10.6 Seconds (9.0-12.0) 07/18/22 PTT 28.8 Seconds (21.0-31.0) 07/18/22 INR 1.0 (0.9-1.1) 07/18/22 Blood Type A Positive 07/18/22 Antibody Screen NEGATIVE 07/18/22 Testing Electrocardiogram Date: 07/18/22 Atrial paced rhythm with prolonged AV conduction with occasional ventricular paced complexes, rate 73 bpm RBBB Chest X-Ray Date: 07/18/22 1. Cardiomegaly and cardiac pacemaker without radiographic evidence of congestive failure. 2. The lungs are clear. Echocardiogram Date: 04/19/22 EF 38% Grade I diastolic dysfunction Inferior and lateral hypokinesis. Septal dyskinesis. Grade III atheroma in ascending and descending aorta Mild central AI. Trileaflet AV. Mild MR Mild TR Cardiac Catheterization Date: 04/16/22 LM -30% distal stenosis LAD -calcified, 95% hazy ostial stenosis. Remainder of vessel medium caliber 50% stenosis at bifurcation with first diagonal, 40-50% stenosis in distal vessel as wraps around apex. Medium D1 with mild proximal disease. Circumflex -medium caliber, 50% hazy mid segment stenosis. OM3 without significant disease. RCA -dominant, small caliber, 98% calcified, ostial stenosis, 95% mid segment stenosis. DOROTHY I-II flow in distal vessel. Severe multivessel coronary artery disease -30% distal left main 95% ostial LAD, 50% mid LAD 40% ostial, 50% hazy mid circumflex (70% ostial, 70% mid circumflex by IVUS, FFR 0.77) 98% ostial, 95% mid RCA with DOROTHY I-II distal flow Referral to [facility] cardiac surgery Other Testing Pacemaker report 04/24/22 Medtronic Mode DDD Pacing [employer] 2.6%, AP 20.8% 0 pace terminated episodes Brain MRI 05/23/22 1. No acute intracranial abnormality. No acute or subacute infarct. 2. Involutional changes with mild to moderate T2/FLAIR hyperintense foci throughout the white matter suggestive of probable chronic microvascular ischemic disease. Head MRA 05/23/22 1. No central vessel occlusion or intracranial aneurysm. 2. Moderate stenosis of the ophthalmic portion of the left internal carotid artery and mild stenosis of the bilateral cavernous carotids due to calcified atherosclerotic plaque better depicted on CTA of March 27, 2022. Carotid duplex 04/18/22 70-79% stenosis R ICA No hemodynamically significant stenosis in the left ICA Neck CTA 03/27/22 IMPRESSION: 1. No acute intracranial hemorrhage, evidence of acute territorial infarction, or other acute intracranial disease process. 2. No occlusion, hemodynamically significant stenosis, aneurysm, dissection, or arteriovenous malformation in the major intracranial arteries. 3. Severe stenosis of the right internal carotid artery. Diffuse atherosclerotic disease. Head CT and CTA 03/27/22 1. No acute intracranial hemorrhage, evidence of acute territorial infarction, or other acute intracranial disease process. 2. No occlusion, hemodynamically significant stenosis, aneurysm, dissection, or arteriovenous malformation in the major intracranial arteries. 3. Severe stenosis of the right internal carotid artery. Diffuse atherosclerotic disease.
[2022-07-30] MEDS ORDERED: ceFAZolin 2000MG 2,000 MG/15 ML SYR IV SCH (06:00)
[2022-07-30] MEDS ORDERED: LACTATED RINGER'S 1,000 ML IV SCH (06:00)
[2022-07-30] MEDS ORDERED: MIDAZOLAM HCL 1 MG/ML 2ML VIAL ONE (06:41)
[2022-07-30] MEDS ORDERED: fentaNYL citrate 100 MCG/2 ML VIAL ONE (06:41)
[2022-07-30] MEDS ORDERED: CALCIUM CHLORIDE 10% 10 ML SYR IV ONE (06:47)
[2022-07-30] MEDS ORDERED: SUGAMMADEX SODIUM 200 MG/2 ML VIAL IV ONE (06:47)
[2022-07-30] MEDS ORDERED: ALBUMIN HUMAN 5% 12.5 GM/250 ML VIAL IV ONE (06:47)
[2022-07-30] MEDS ORDERED: GLYCOPYRROLATE 0.2 MG/ML VIAL ONE (06:50)
[2022-07-30] MEDS ORDERED: PROPOFOL IV EMULSION 10 MG/ML 20 ML VIAL IV ONE (06:50)
[2022-07-30] MEDS ORDERED: DEXAMETHASONE SOD INJ 4 MG/ML VIAL ONE (06:50)
[2022-07-30] MEDS ORDERED: ONDANSETRON INJ 2 MG/ML 2 ML VIAL ONE ×2 (06:50→08:42)
[2022-07-30] MEDS ORDERED: PHENYLEPHRINE HCL 10 MG/ML VIAL ONE ×2 (06:50→10:35)
[2022-07-30] MEDS ORDERED: ROCURONIUM BROMIDE 10 MG/ML 5 ML VIAL IV ONE ×3 (06:50→11:55)
[2022-07-30] MEDS ORDERED: LIDOCAINE 2% MPF LOCAL 5 ML VIAL INFIL ONE ×2 (06:50→09:46)
[2022-07-30] MEDS ORDERED: LARYING-O-JET KIT (LTA) ONE (06:52)
[2022-07-30] MEDS ORDERED: THROMBIN FOR SOLN 20000 UNIT KIT ONE (06:58)
[2022-07-30] MEDS ORDERED: ceFAZolin 330 MG/ML 1 GM VIAL ONE (06:58)
[2022-07-30] MEDS ORDERED: HEPARIN (PORCINE) 1000 UNIT/ML 10 ML (CATH LAB USE ONLY) ONE (06:58)
[2022-07-30] MEDS ORDERED: EPINEPHrine INJ 1 MG/ML AMP ONE (06:58)
[2022-07-30] MEDS ORDERED: BUPIVACAINE 0.5 % 5 MG/1 ML MPF 30ML VIAL ONE (06:58)
[2022-07-30] MEDS ORDERED: GELATIN SPONGE SZ 100 ONE (06:58)
[2022-07-30] MEDS ORDERED: LIDOCAINE 1% LOCAL 20 ML VIAL ONE (07:09)
[2022-07-30] MEDS ORDERED: ePHEDrine sulfate 50 MG/ML AMP IV PRN (07:19)
[2022-07-30] MEDS ORDERED: ATROPINE SULFATE 0.1 MG/ML 10ML SYR IV PRN (07:19)
[2022-07-30] MEDS ORDERED: ONDANSETRON INJ 2 MG/ML 2 ML VIAL IV PRN (07:19)
--- NOTE | 2022-07-30 07:19 | History & Physical Report ---
Date of Service July 30, 2022 Assessment & Plan (1) Right-sided extracranial carotid artery stenosis: Plan: Patient for TCAR of the right carotid today. I have discussed the risks options and benefits of the procedure with the patient. The patient understands the risks options and benefits and agrees to the procedure. History of Present Illness Chief Complaint: Right carotid stenosis Primary Care Provider: Fay Cruz PA-C Ayad is a 71-year-old gentleman who we have been seeing for carotid artery disease. A CT angio was done in [facility] showed a 90% narrowing of his right internal carotid artery. He underwent emergency open heart surgery at [place]. Most of his symptoms have weakness lightheadedness has resolved since his surgery. He still remains with headaches. He was seen by neurology who ordered an MRI and MRA. These did not show any new findings. He is asymptomatic from his carotid disease Allergies Allergy/AdvReac Type Severity Reaction Status Date / Time No Known Allergies Allergy Verified 07/30/22 06:14 Home Medications Medication Instructions Recorded Confirmed Type aspirin 81 mg chewable tablet 81 mg PO QAM 03/27/22 07/30/22 History lorazepam 0.5 mg tablet 0.5 mg PO .COMPLEX PRN Anxiety 04/30/22 07/30/22 History lorazepam 0.5 mg tablet 1 mg PO HS 04/30/22 07/30/22 History metoprolol tartrate 25 mg tablet 25 mg PO BID 04/30/22 07/30/22 History atorvastatin 80 mg tablet 80 mg PO HS #90 tabs 05/29/22 07/30/22 Rx furosemide 20 mg tablet 20 mg PO DAILY #30 tabs 05/29/22 07/30/22 Rx gabapentin 300 mg capsule 300 mg PO TID 05/29/22 07/30/22 History potassium bicarbonate-citric acid 10 meq PO QAM 05/29/22 07/30/22 History 10 mEq effervescent tablet Plavix 75 mg PO QPM 07/18/22 07/30/22 History Past Med/Surg History Medical History Acute non-ST elevation myocardial infarction (NSTEMI) 03/2022 [facility]-s/p CABG x 3 04/2022, small dominant diffusely diseased RCA too small for bypass per [place] cardio records Anxiety CAD (coronary artery disease), [place] coronary artery s/p CABG x 3, small dominant diffusely diseased RCA too small for bypass Carpal tunnel syndrome Depression Headache Hearing deficit Left Heart failure EF 38% Hypercholesteremia Hypertension controlled, stable per pt Pacemaker 03/[address] [facility] [address] SOLOMON-MEDTRONIC- LAST CHECKED 1 MO AGO Peripheral vascular disease RLE stent (Dr Acevedo/2017) Stenosis of right internal carotid artery Syncope denies recent syncopal episodes Surgical History History of carpal tunnel release Left CTR: 12/22/19: MAC sedation at [facility] [place] History of colonoscopy Hx of excision of epidermal inclusion cyst Dr. Castro 07-01-19 Hx of left cataract extraction Hx of left knee surgery Arthroscopy (20 years ago) S/P CABG x 3 [facility] [place] -04/2022 S/P cardiac catheterization 04/2022 [facility] Family History Brother Stroke Social History Smoking Status: Former smoker Tobacco Type: Cigarettes Cigarettes Per Day: 2 pk per week; Smoking End Date: QUIT SEVERAL MOS AGO; Second Hand Exposure: No; Do You Dip or Chew Tobacco: No; Tobacco Cessation Education Requested by Patient: No Hx Alcohol Use: Yes Alcohol type: hard liquor Hx Substance Use: No Preferred Language: Senegalese Communication Ability: Effective Escape Wheel Tooth Cutter Required: No Beliefs That Will Affect Care: None marital status: Current Living Situation: Alone current occupational status: retired 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 How many Children do You have: 5 Other Information That Helps Us Care for You: No Feels Safe at Home: Yes Safety Concerns: Feels Safe At This Time Assistive Devices: Glasses Review of Systems All systems reviewed & are unremarkable except as noted in HPI & below Physical Exam Constitutional: WD/WN, vitals as above Neck: trachea midline, no thyromegaly Respiratory: normal respiratory effort, lungs clear to auscultation Cardiovascular: RRR, no murmur, no edema Vessels: normal peripheral pulses Gastrointestinal (Abdomen): normal bowel sounds, soft, nontender, no hepatosplenomegaly Musculoskeletal: no cyanosis or clubbing, extremities motor strength 5/5 Neurologic: CN's II-XI intact bilaterally and moves all extremities Psychiatric: Orientation: alert and oriented x 3 Results & Data ([facility]) Vital Signs (Past 12 Hours) Vital Signs Temp Pulse Resp BP BP Pulse Ox O2 Del Method 07/30/22 06:12 36.7 C 73 18 116/82 143/89 H 99 Room Air
[2022-07-30] MEDS ORDERED: ePHEDrine sulfate 50 MG/ML SYR ONE (08:42)
[2022-07-30] MEDS ORDERED: HEPARIN SOD (PORCINE) 1000 UNIT/ML ONE (09:27)
[2022-07-30] MEDS ORDERED: PROTAMINE SULFATE 10 MG/ML 5 ML VIAL ONE (09:28)
[2022-07-30] MEDS ORDERED: VISIPAQUE IV ONE (09:31)
[2022-07-30] MEDS ORDERED: SODIUM CHLORIDE 0.9% INJ 10 ML VIAL ONE (09:39)
[2022-07-30] MEDS ORDERED: VASOPRESSIN 20 UNIT/ML VIAL ONE (09:39)
--- NOTE | 2022-07-30 09:44 | Post Operative Brief Note ---
Immediate Post Op Note v1 Date of Surgery July 30, 2022 Pre & Post Diagnosis Operation Date: 07/30/22 08:00 Pre-Op Diagnosis: Right Internal Carotid Artery Stenosis Post-Op Diagnosis: Right Internal Carotid Artery Stenosis I identified the patient and participated in the time-out.: Yes Procedure Operation Date: 07/30/22 08:00 Actual Procedures p Right Transcarotid Artery Revascularization(Right) - Ildefonso Acevedo MD Surgeon Ildefonso Acevedo MD Project Associate Jessica,PAC Estimated Blood Loss 50 Findings Consistent with Post-Op Diagnosis Anesthesia Type General Complications none Disposition Accompanied Patient To Recovery: No Disposition: Recovery Room
[2022-07-30] MEDS: fentaNYL citrate 100 MCG/2 ML VIAL IV PRN ×3 (10:40→10:50)
[2022-07-30] MEDS ORDERED: LORazepam 0.5 MG TAB PO PRN (12:01)
--- NOTE | 2022-07-30 12:37 | Anesthesiology Progress Note ---
Date of Service July 30, 2022 Anesthesia Post Procedure Vital Signs Vital Signs: Temp Pulse Resp BP BP BP Pulse Ox 07/30/22 11:30 70 17 118/81 128/75 95 07/30/22 11:20 70 17 122/80 137/80 95 07/30/22 11:10 97.9 F 70 21 117/79 129/72 97 07/30/22 11:00 70 12 115/71 126/71 96 07/30/22 10:50 71 15 102/69 107/64 96 07/30/22 10:40 76 14 104/71 103/64 94 07/30/22 10:20 84 14 96/56 L 100 07/30/22 10:30 79 16 96/57 L 96 07/30/22 10:11 96.8 F L 82 15 118/51 L 96 07/30/22 06:12 98.1 F 73 18 116/82 143/89 H 99 O2 Del Method O2 Flow Rate 07/30/22 11:30 Room Air 07/30/22 11:20 Room Air 07/30/22 11:10 Room Air 07/30/22 11:00 Room Air 07/30/22 10:50 Room Air 07/30/22 10:40 Room Air 07/30/22 10:20 Oxymask 6 07/30/22 10:30 Oxymask 3 07/30/22 10:11 Room Air 07/30/22 06:12 Room Air Pain Intensity Head: Pain Intensity: 7 Transfer of Care Handoff Completed per policy Notes Mental Status: alert / awake / arousable and participated in evaluation Patient Amnestic to Procedure: Yes Nausea / Vomiting: adequately controlled Pain: adequately controlled Airway Patency, RR, SpO2: stable & adequate BP & HR: stable & adequate Hydration State: stable & adequate Anesthetic Complications: no major complications apparent and Pt Satisfied with anesthetic care
[2022-07-30] MEDS: oxyCODONE/ACETAMINOPHEN 5mg/325mg TAB PO PRN ×2 (13:35→22:24)
[2022-07-30] MEDS: GABAPENTIN 300 MG CAP PO SCH ×2 (13:36→20:18)
[2022-07-30] MEDS ORDERED: STAT IV Infusion **Titration per Protocol STA (13:49)
[2022-07-30] MEDS: PHENYLEPHRINE HCL 20 MG in DEXTROSE 5% 500 ML IV SCH ×2 (14:21→22:53)
--- NOTE | 2022-07-30 14:38 | Critical Care Consultation ---
Date of Consultation July 30, 2022 Assessment & Plan (1) Right-sided extracranial carotid artery stenosis: ICU Assessment and Plans Reason Critically Ill: 72-year-old male here with a PMHx significant for right carotid artery stenosis who was admitted to the hospital for TCAR procedure with Vascular Surgery, currently status post procedure doing well. Neuro - CAM ICU: NEGATIVE Sedation: HS ativan 1mg for sleep Analgesia: PRN Percocet 5mg 1-2 tabs q4h Headache -continue Gabapentin 300mg TID Cardiac - Right Internal Carotid Stenosis s/p TCAR -maintain systolic BP above 120 -ordered Dandre synephrin -will defer to Vascular Surgery CAD with CABGx3 -continue ASA 81mg, plavix 75mg -continue atorvastatin 80mg HFrEF -continue lasix 20mg -continue metoprolol tartrate 25mg BID Respiratory - Doing well on room air. No concerns at this time. GI - clear liquid diet, heart healthy RENAL/LYTES - No significant electrolyte derangement. Replace lytes as needed. - No concerns at this time. ENDO - No concerns at this time. HEME - Stable H&H. Will monitor for any drops in the setting of Heparin gtt ID - -continue ancef, total 3 doses INTEGUMENTARY - -ensure surgical incision site remains clean and dry LINES/IV ACCESS - PIVs intact. continue LR 125mls/hr DVT PROPHYLAXIS - ASA plavix Thank you for allowing us to be part of this patient's care. Please refer to Dr. Ivey's documentation for any further recommendations. (2) Headache: (3) CAD (coronary artery disease), [place] coronary artery: (4) Heart failure: (5) Hypercholesteremia: (6) Hypertension: Supervising Physician Co-Signing Physician Notes Patient seen and examined with resident physician. Agree with assessment and plan aside for any additions/exceptions noted: Physical exam: Constitutional: Patient appears to be of their stated age. Patient is in no apparent distress. Patient is well-developed. Eyes: Pupils are equal round and reactive to light. Conjunctivae are normal. Anicteric sclera. Ears nose, mouth and throat: Deferred. Neck: Trachea is midline. Visual inspection is normal. Respiratory: Clear to auscultation bilaterally. No use of accessory muscles. No significant clubbing noted. Cardiovascular: Regular rate and rhythm. No murmurs. No edema. Gastrointestinal: Normal bowel sounds, soft, nontender and nondistended. No hepatosplenomegaly noted. Musculoskeletal: No cyanosis. Patient is able to move all extremities. Skin: Incision noted at the right chest wall. Neurologic: No obvious focal neurological deficits seen. Psychiatric: Alert and oriented x3 with a euthymic affect. Impression/plan: Patient is status post tenting of the carotid artery. Continue antiplatelet therapy per vascular surgery recommendations. Continue vasopressor support per vascular surgery recommendation. Defer pain control to vascular surgery. Patient mentating well and eager to advance diet. No significant acute issues at present. ICU team is available should the need arise. Thank you for the consult. History of Present Illness Reason for Consultation: TCAR post op Requesting Physician: Ildefonso Acevedo MD Attending Physician: Soto Ivey MD History of Present Illness 72yo Male with PMH CAD with CABGx3 April 2023, s/p pacer March 2022, hx NSTEMI, HFrEF 38%, HLD, HTN right internal carotid artery stenosis who presented to the hospital for scheduled right TCAR with Dr. Acevedo to treat ongoing headache and right arm weakness. He follows Dr. Palm in Cardiology. Per Vascular surgery he was started on Dandre synephrin to maintain systlic BP above 120. Patient states at this time he is doing well, has a headache ongoing behind his right eye that feels different from his previous headaches but denies any vision changes auras or flashing lights, believes the headache will resolve with time. Patient has minor pain turning his head side to side due to the location of his incision. He states he was given the ok for clear liquids. He has not had a bowel movement since yesterday, has some mild LLQ abd pain. Patient states he was prescribed Gabapentin for his headache originally but feels it did not help. He is not sure if he is on Lasix at home. Patient states his medications have not changed since his last admission. Allergies Allergy/AdvReac Type Severity Reaction Status Date / Time No Known Allergies Allergy Verified 07/30/22 06:14 Home Medications Medication Instructions Recorded Confirmed Type aspirin 81 mg chewable tablet 81 mg PO QAM 03/27/22 07/30/22 History lorazepam 0.5 mg tablet 0.5 mg PO .COMPLEX PRN Anxiety 04/30/22 07/30/22 History lorazepam 0.5 mg tablet 1 mg PO HS 04/30/22 07/30/22 History metoprolol tartrate 25 mg tablet 25 mg PO BID 04/30/22 07/30/22 History atorvastatin 80 mg tablet 80 mg PO HS #90 tabs 05/29/22 07/30/22 Rx furosemide 20 mg tablet 20 mg PO DAILY #30 tabs 05/29/22 07/30/22 Rx gabapentin 300 mg capsule 300 mg PO TID 05/29/22 07/30/22 History potassium bicarbonate-citric acid 10 meq PO QAM 05/29/22 07/30/22 History 10 mEq effervescent tablet Plavix 75 mg PO QPM 07/18/22 07/30/22 History Patient History Medical History (Updated 07/30/22 @ 14:12 by Sonia Olivares DO) Acute non-ST elevation myocardial infarction (NSTEMI) 03/2022 [facility]-s/p CABG x 3 04/2022, small dominant diffusely diseased RCA too small for bypass per [place] cardio records Anxiety CAD (coronary artery disease), [place] coronary artery s/p CABG x 3, small dominant diffusely diseased RCA too small for bypass Carpal tunnel syndrome Depression Headache Hearing deficit Left Heart failure EF 38% Hypercholesteremia Hypertension controlled, stable per pt Pacemaker 03/[address] [facility] [address] SOLOMON-[employer]ON[employer]- LAST CHECKED 1 MO AGO Peripheral vascular disease RLE stent (Dr Acevedo/2017) Stenosis of right internal carotid artery Syncope denies recent syncopal episodes Surgical History History of carpal tunnel release Left CTR[place] 12[place]22[place] [facility] [place] of colonoscopy Hx of excision of epidermal inclusion cyst Dr. Castro 07-01-19 Hx of left cataract extraction Hx of left knee surgery Arthroscopy (20 years ago) S/P CABG x 3 [facility] [place] S/P cardiac catheterization 04/2022 [facility] Family History Brother Stroke Social History Smoking Status: Former smoker Tobacco Type: Cigarettes Cigarettes Per Day: 2 pk per week; Smoking End Date: QUIT SEVERAL MOS AGO; Second Hand Exposure: No; Do You Dip or Chew Tobacco: No; Tobacco Cessation Education Requested by Patient: No Hx Alcohol Use: Yes Alcohol type: hard liquor Hx Substance Use: No Preferred Language: Mauritanian Communication Ability: Effective Flat Locker Required: No Beliefs That Will Affect Care: None marital status: Current Living Situation: Alone current occupational status: retired 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 How many Children do You have: 5 Other Information That Helps Us Care for You: No Feels Safe at Home: Yes Safety Concerns: Feels Safe At This Time Assistive Devices: Glasses Review of Systems Review of Systems: Positive headache Negative fever chills Negative dizziness Negative chest pain palpitations SOB Negative nausea vomitting diarrhea constipation Negative numbness tingling rash swelling weakness loss of sensation Physical Exam Constitutional: WD/WN, vitals as above Eyes: PERRL, conjunctivae normal, anicteric sclerae ENMT: external ear and nose normal, oropharynx normal Neck: trachea midline, no thyromegaly Respiratory: normal respiratory effort, lungs clear to auscultation Cardiovascular: RRR, no murmur, no edema Chest (Breasts): Additional Comments: incision with glue noted below right clavicle, vertical scar noted along sternum from prior surgery Gastrointestinal (Abdomen): normal bowel sounds, soft, nontender, no hepatosplenomegaly Musculoskeletal: no cyanosis or clubbing, extremities motor strength 5/5 Skin: no rashes, warm and dry Neurologic: CN's II-XI intact bilaterally Psychiatric: A+Ox3, euthymic affect Results & Data Results & Data ([facility]) Vital Signs (Past 12 Hours) Vital Signs Temp Pulse Resp BP BP BP Pulse Ox 07/30/22 13:10 07/30/22 13:07 36.5 C 70 18 97 07/30/22 11:30 70 17 118/81 128/75 95 07/30/22 11:20 70 17 122/80 137/80 95 07/30/22 11:10 36.6 C 70 21 117/79 129/72 97 07/30/22 11:00 70 12 115/71 126/71 96 07/30/22 10:50 71 15 102/69 107/64 96 07/30/22 10:40 76 14 104/71 103/64 94 07/30/22 10:20 84 14 96/56 L 100 07/30/22 10:30 79 16 96/57 L 96 07/30/22 10:11 36 C L 82 15 118/51 L 96 07/30/22 06:12 36.7 C 73 18 116/82 143/89 H 99 O2 Del Method O2 Flow Rate 07/30/22 13:10 Room Air 07/30/22 13:07 Room Air 07/30/22 11:30 Room Air 07/30/22 11:20 Room Air 07/30/22 11:10 Room Air 07/30/22 11:00 Room Air 07/30/22 10:50 Room Air 07/30/22 10:40 Room Air 07/30/22 10:20 Oxymask 6 07/30/22 10:30 Oxymask 3 07/30/22 10:11 Room Air 07/30/22 06:12 Room Air Laboratory Results 07/30/22 07/30/22 07/30/22 Range/Units 12:46 08:55 05:58 Activ Coag Time Kaolin 323 H (94-140) SECONDS POC Glucose 106 H (70-99) mg/dl SARS-CoV-2, RNA, NAAT NEGATIVE (NEGATIVE) Medications Administered Current Inpatient Medications Aspirin (Aspirin 81 Mg Ectab) 81 mg PO QAM [facility] Stop: 08/30/22 08:59 Atorvastatin Calcium (Atorvastatin 40 Mg Tab) 80 mg PO HS [facility]HAMES Stop: 08/29/22 20:59 Atropine Sulfate (Atropine Sulfate 0.1 Mg/Ml 10ml Syr) 0.5 mg IV Q1M PRN PRN Reason: PACU Use-HR<40 &/or Bradycardi Stop: 07/30/22 15:19 Clopidogrel Bisulfate (Clopidogrel Bisulfate 75 Mg Tab) 75 mg PO QPM [facility] Stop: 08/29/22 20:59 Ephedrine Sulfate (Ephedrine Sulfate 50 Mg/Ml Amp) 5 mg IV Q5M PRN PRN Reason: PACU Use Only-SBP<90 mmHg Stop: 07/30/22 15:19 Fentanyl Citrate (Fentanyl Citrate 100 Mcg/2 Ml Vial) 25 mcg IV Q5M PRN PRN Reason: PACU Use Only-Pain Stop: 07/30/22 15:19 Last Admin: 07/30/22 10:50 Dose: 25 mcg Furosemide (Furosemide 20 Mg Tab) 20 mg PO DAILY RADHAMES Stop: 08/30/22 08:59 Gabapentin (Gabapentin 300 Mg Cap) 300 mg PO TID [facility] Stop: 08/29/22 13:59 Last Admin: 07/30/22 13:36 Dose: 300 mg Lactated Ringer's (Lr) 1,000 mls @ 80 mls/hr IV .[id number] [facility] Stop: 07/30/22 18:29 Last Infusion: 07/30/22 08:03 Dose: Infused Cefazolin Sodium (Ancef 2000mg) 2,000 mg in 15 mls @ 3.75 mls/min IV PREOP [facility]; Protocol Stop: 07/30/22 18:00 Last Admin: 07/30/22 08:03 Dose: 3.75 mls/min Cefazolin Sodium (Ancef 2000mg) 2,000 mg in 15 mls @ 3.75 mls/min IV Q8H [facility]; Protocol Stop: 07/31/22 00:03 Lactated Ringer's (Lr) 1,000 mls @ 125 mls/hr IV .Q8H [facility] Stop: 08/29/22 12:00 Phenylephrine HCl 20 mg/ (Dextrose) 502 mls @ 41.566 mls/hr IV .Q12H5M [facility]; Protocol Stop: 08/29/22 13:59 Last Admin: 07/30/22 14:21 Dose: 0.3 mcg/kg/min, 41.6 mls/hr Lorazepam (Lorazepam 0.5 Mg Tab) 0.5 mg PO 0900,1200 PRN PRN Reason: Anxiety Stop: 08/29/22 12:00 Lorazepam (Lorazepam 1 Mg Tab) 1 mg PO HS [facility] Stop: 08/29/22 20:59 Metoprolol Tartrate (Metoprolol Tartrate 25 Mg Tab) 25 mg PO BID [facility] Stop: 08/29/22 20:59 Miscellaneous (Effer-K: Order Awaiting Action) 1 each N/A QS [facility] Stop: 08/29/22 15:59 Ondansetron HCl (Ondansetron Inj 2 Mg/Ml 2 Ml Vial) 4 mg IV ONCE PRN PRN Reason: PACU Use Only-Nausea/Vomiting Stop: 07/30/22 15:19 Oxycodone/Acetaminophen (Oxycodone/Acetaminophen 5mg/325mg Tab) 1 - 2 tab PO Q4H PRN PRN Reason: Moderate Pain Stop: 08/13/22 12:00 Last Admin: 07/30/22 13:35 Dose: 2 tab Resident Activity Tracking Resident Involvement: Resident Care Provided Care Provided: Adult Hospital Medicine
[2022-07-30] MEDS: LACTATED RINGER'S 1,000 ML IV SCH ×2 (15:32→18:02)
--- NOTE | 2022-07-30 16:43 | Billing Data ---
Date of Service July 30, 2022 Coding Level of Care Code 08923 Initial Inpt Care Lvl 3
[2022-07-30] MEDS: ceFAZolin 2000MG 2,000 MG/15 ML SYR IV SCH (18:02)
[2022-07-30] MEDS: CLOPIDOGREL BISULFATE 75 MG TAB PO SCH (20:18)
[2022-07-30] MEDS: METOPROLOL TARTRATE 25 MG TAB PO SCH (20:19)
[2022-07-30] MEDS: ATORVASTATIN 40 MG TAB PO SCH (20:19)
[2022-07-30] MEDS: LORazepam 1 MG TAB PO SCH (20:20)
[2022-07-31] MEDS: ceFAZolin 2000MG 2,000 MG/15 ML SYR IV SCH (00:08)
[2022-07-31] MEDS: PHENYLEPHRINE HCL 20 MG in DEXTROSE 5% 500 ML IV SCH ×3 (07:57→12:54)
--- NOTE | 2022-07-31 08:23 | Critical Care Progress Note ---
Date of Service July 31, 2022 Assessment & Plan (1) Right-sided extracranial carotid artery stenosis: Plan: ICU Assessment and Plans Reason Critically Ill: 72-year-old male here with a PMHx significant for right carotid artery stenosis who was admitted to the hospital for TCAR procedure with Vascular Surgery, currently status post procedure doing well. Neuro - [facility] ICU: NEGATIVE Sedation: HS ativan 1mg for sleep Analgesia: PRN Percocet 5mg 1-2 tabs q4h Headache -continue Gabapentin 300mg TID Cardiac - Right Internal Carotid Stenosis s/p TCAR -maintain systolic BP above 100 -ordered Dandre synephrin, vascular surgery recommended PO sudafed for BP support -following Vascular Surgery CAD with CABGx3 -continue ASA 81mg, plavix 75mg -continue atorvastatin 80mg HFrEF -hold lasix 20mg given low BP -hold metoprolol tartrate 25mg BID given low BP Respiratory - Doing well on room air. No concerns at this time. GI - -diet heart healthy RENAL/LYTES - No significant electrolyte derangement. Replace lytes as needed. - No concerns at this time. ENDO - No concerns at this time. HEME - Will monitor for any bleeds ID - -completed ancef, total 3 doses INTEGUMENTARY - -ensure surgical incision site remains clean and dry LINES/IV ACCESS - PIVs intact. LR discontinued DVT PROPHYLAXIS - -continue ASA plavix Thank you for allowing us to be part of this patient's care. Please refer to Dr. Ivey's documentation for any further recommendations. (2) Headache: (3) CAD (coronary artery disease), [place] coronary artery: (4) Heart failure: (5) Hypercholesteremia: (6) Hypertension: Plan Patient seen and examined with resident physician. Agree with assessment and plan aside for any additions/exceptions noted: Physical exam: Constitutional: Patient appears to be of their stated age. Patient is in no apparent distress. Patient is well-developed. Eyes: Pupils are equal round and reactive to light. Conjunctivae are normal. Anicteric sclera. Ears nose, mouth and throat: Deferred. Neck: Trachea is midline. Visual inspection is normal. Respiratory: Clear to auscultation bilaterally. No use of accessory muscles. No significant clubbing noted. Cardiovascular: Regular rate and rhythm. No murmurs. No edema. Gastrointestinal: Normal bowel sounds, soft, nontender and nondistended. No hepatosplenomegaly noted. Musculoskeletal: No cyanosis. Patient is able to move all extremities. Skin: Incision noted at the right chest wall. Neurologic: No obvious focal neurological deficits seen. Psychiatric: Alert and oriented x3 with a euthymic affect. Impression/plan: Postop day 1 status post TCAR. Continues to be hypotensive per vascular surgery standards and remains on low-dose phenylephrine drip. They are initiating pseudoephedrine. Caution with the use of alpha agonist agents given his cardiomyopathy. Defer rest of care to vascular surgery. Critical care team is available should the need arise. Admission and Anticipated Discharge Date Admission Date: July 30, 2022 Subjective Patient seen at bedside, calm comfortable cooperative. He tolerated clear liquid diet well wanted to advance his diet further, diet advance approved by Dr. Acevedo. Patient states his neck pain is well controlled, denies any SOB chest pain dizziness change in vision. He states he still has a right sided headache that improved with percocet last night. Patient looks forward to walking when he is approved to walk. He understands we have concerns about his blood pressure and have him on medication to keep his blood pressure up. He understands he should continue to use his incentive spirometer Attempted to decrease his dandre synephrine, however his pressures dropped to 86/49, dandre synephrine increased. Patient denied any dizziness nausea at that time, had good pedal pulses. Review of Systems Review of Systems: Positive headache Negative fever chills Negative dizziness Negative chest pain palpitations SOB Negative nausea vomitting diarrhea constipation Negative numbness tingling rash swelling weakness loss of sensation Physical Exam Constitutional: WD/WN, vitals as above Eyes: PERRL, conjunctivae normal, anicteric sclerae ENMT: external ear and nose normal, oropharynx normal Neck: trachea midline, no thyromegaly Respiratory: normal respiratory effort, lungs clear to auscultation Cardiovascular: RRR, no murmur, no edema Vessels: dorsalis pedis pulses present Gastrointestinal (Abdomen): normal bowel sounds, soft, nontender, no hepatosplenomegaly Musculoskeletal: no cyanosis or clubbing, extremities motor strength 5/5 Skin: no rashes, warm and dry Neurologic: CN's II-XI intact bilaterally Psychiatric: A+Ox3, euthymic affect Results & Data Results & Data ([facility]) Vital Signs (Past 12 Hours) Vital Signs Temp Pulse Resp BP Pulse Ox 07/31/22 04:10 74 6 L 94 07/31/22 04:00 37.0 C 70 13 93 07/31/22 04:00 105/65 07/31/22 03:50 74 11 L 95 07/31/22 03:40 73 18 91 07/31/22 03:30 76 11 L 90 07/31/22 03:20 79 20 89 L 07/31/22 03:10 70 11 L 90 07/31/22 03:02 94/54 L 07/31/22 03:02 76 11 L 93 07/31/22 03:00 77 13 07/31/22 02:50 76 15 90 07/31/22 02:40 75 16 91 07/31/22 02:30 76 9 L 92 07/31/22 02:20 70 10 L 92 07/31/22 02:10 74 18 92 07/31/22 02:00 70 7 L 93 07/31/22 02:00 140/87 07/31/22 01:50 73 6 L 93 07/31/22 01:40 71 14 94 07/31/22 01:30 70 12 89 L 07/31/22 01:20 70 14 93 07/31/22 01:10 70 15 91 07/31/22 01:00 70 14 07/31/22 01:00 121/72 07/31/22 00:50 70 14 88 L 07/31/22 00:40 72 14 86 L 07/31/22 00:30 70 13 84 L 07/31/22 00:20 84 17 91 07/31/22 00:10 70 11 L 98 07/31/22 00:00 37.3 C 71 15 89 L 07/30/22 23:50 72 11 L 95 07/30/22 23:40 70 1 L 90 07/30/22 23:30 70 1 L 90 07/30/22 23:20 70 2 L 89 L 07/30/22 23:10 70 0 L 91 07/30/22 23:00 71 12 93 07/30/22 23:00 105/90 07/30/22 22:50 70 27 H 98 07/30/22 22:40 70 18 94 07/30/22 22:30 70 14 96 07/30/22 22:29 82/69 L 07/30/22 22:29 70 11 L 97 07/30/22 22:20 70 22 95 07/30/22 22:10 70 18 97 07/30/22 22:01 70 19 95 07/30/22 22:01 136/78 07/30/22 22:00 70 14 96 07/30/22 21:50 70 8 L 95 07/30/22 21:40 70 12 96 07/30/22 21:30 70 19 96 07/30/22 21:20 70 13 97 07/30/22 21:10 70 30 H 96 07/30/22 21:01 70 23 96 07/30/22 21:01 130/67 07/30/22 21:00 70 22 94 07/30/22 20:50 70 24 96 07/30/22 20:40 70 20 97 07/30/22 20:38 70 22 96 07/30/22 20:38 102/55 L 07/30/22 20:30 70 18 97 07/30/22 20:20 69 19 96 07/30/22 20:19 116/70 07/30/22 20:19 70 14 90 Resident Activity Tracking Resident Involvement: Resident Care Provided Care Provided: Adult Hospital Medicine
[2022-07-31] MEDS ORDERED: ASPIRIN 81 MG CHEW PO SCH (09:00)
[2022-07-31] MEDS: PSEUDOEPHEDRINE HCL 30 MG TAB PO PRN ×2 (09:22→16:09)
[2022-07-31] MEDS: METOPROLOL TARTRATE 25 MG TAB PO SCH ×2 (10:04→21:45)
[2022-07-31] MEDS: FUROSEMIDE 20 MG TAB PO SCH (10:04)
--- NOTE | 2022-07-31 11:51 | Surgery Progress Note ---
Date of Service July 31, 2022 Assessment & Plan (1) Right-sided extracranial carotid artery stenosis: Plan: Patient POD #1 from a TCAR procedure of the right carotid. He is doing well. His blood pressure is running slightly lower than normal. Will start on ps eudoephedrine. Will transfer to floor and observe one more day. Admission and Anticipated Discharge Date Admission Date: July 30, 2022 Subjective Patient anxious today. Worried about blood pressure. Slightly lightheaded this am. Also complaining of a small amount of nausea. No swallowing or speech difficulties. No focal neuro complaints. Physical Exam Constitutional: WD/WN, vitals as above Neck: trachea midline Respiratory: normal respiratory effort; no respiratory distress Cardiovascular: Rate/Rhythm: regular rate and regular rhythm Extremities: normal capillary refill Musculoskeletal: no cyanosis or clubbing, extremities motor strength 5/5 Skin: + incision (dry and clean) Neurologic: CN's II-XI intact bilaterally and moves all extremities Psychiatric: Orientation: alert and oriented x 3 Results & Data ([facility]) Vital Signs (Past 12 Hours) Vital Signs Temp Pulse Pulse Resp BP BP BP 07/31/22 11:00 36.9 C 81 18 101/62 100/56 L 07/31/22 08:00 74 07/31/22 04:10 74 6 L 07/31/22 04:00 37.0 C 70 13 07/31/22 04:00 105/65 07/31/22 03:50 74 11 L 07/31/22 03:40 73 18 07/31/22 03:30 76 11 L 07/31/22 03:20 79 20 07/31/22 03:10 70 11 L 07/31/22 03:02 94/54 L 07/31/22 03:02 76 11 L 07/31/22 03:00 77 13 07/31/22 02:50 76 15 07/31/22 02:40 75 16 07/31/22 02:30 76 9 L 07/31/22 02:20 70 10 L 07/31/22 02:10 74 18 07/31/22 02:00 70 7 L 07/31/22 02:00 140/87 07/31/22 01:50 73 6 L 07/31/22 01:40 71 14 07/31/22 01:30 70 12 07/31/22 01:20 70 14 07/31/22 01:10 70 15 07/31/22 01:00 70 14 07/31/22 01:00 121/72 07/31/22 00:50 70 14 07/31/22 00:40 72 14 07/31/22 00:30 70 13 07/31/22 00:20 84 17 07/31/22 00:10 70 11 L 07/31/22 00:00 37.3 C 71 15 07/30/22 23:50 72 11 L Pulse Ox O2 Del Method 07/31/22 11:00 94 Room Air 07/31/22 08:00 07/31/22 04:10 94 07/31/22 04:00 93 07/31/22 04:00 07/31/22 03:50 95 07/31/22 03:40 91 07/31/22 03:30 90 07/31/22 03:20 89 L 07/31/22 03:10 90 07/31/22 03:02 07/31/22 03:02 93 07/31/22 03:00 07/31/22 02:50 90 07/31/22 02:40 91 07/31/22 02:30 92 07/31/22 02:20 92 07/31/22 02:10 92 07/31/22 02:00 93 07/31/22 02:00 07/31/22 01:50 93 07/31/22 01:40 94 07/31/22 01:30 89 L 07/31/22 01:20 93 07/31/22 01:10 91 07/31/22 01:00 07/31/22 01:00 07/31/22 00:50 88 L 07/31/22 00:40 86 L 07/31/22 00:30 84 L 07/31/22 00:20 91 07/31/22 00:10 98 07/31/22 00:00 89 L 07/30/22 23:50 95
[2022-07-31] MEDS: ASPIRIN 81 MG ECTAB PO SCH (11:53)
[2022-07-31] MEDS: GABAPENTIN 300 MG CAP PO SCH ×3 (11:53→21:44)
[2022-07-31] MEDS ORDERED: ONDANSETRON INJ 2 MG/ML 2 ML VIAL IV PRN (12:43)
--- NOTE | 2022-07-31 13:56 | Billing Data ---
Date of Service July 31, 2022 Coding Level of Care Code 72411 Subseq Hosp Care Lvl 2
[2022-07-31] MEDS: CLOPIDOGREL BISULFATE 75 MG TAB PO SCH (21:41)
[2022-07-31] MEDS: ATORVASTATIN 40 MG TAB PO SCH (21:44)
[2022-07-31] MEDS: PSYLLIUM or GUAR GUM FIBER POWDER PACKET PO SCH (22:08)
[2022-07-31] MEDS: oxyCODONE/ACETAMINOPHEN 5mg/325mg TAB PO PRN (23:33)
[2022-08-01] MEDS: LORazepam 1 MG TAB PO SCH (01:14)
[2022-08-01] MEDS: PSYLLIUM or GUAR GUM FIBER POWDER PACKET PO SCH (08:48)
[2022-08-01] MEDS: ASPIRIN 81 MG ECTAB PO SCH (08:48)
[2022-08-01] MEDS: FUROSEMIDE 20 MG TAB PO SCH (08:48)
[2022-08-01] MEDS: METOPROLOL TARTRATE 25 MG TAB PO SCH (08:48)
[2022-08-01] MEDS: GABAPENTIN 300 MG CAP PO SCH ×2 (08:48→12:55)
--- NOTE | 2022-08-01 13:57 | Surgery Progress Note ---
Date of Service August 01, 2022 Assessment & Plan (1) Right-sided extracranial carotid artery stenosis: Plan: Patient POD #2 from a TCAR procedure of the right carotid. He is doing well. His blood pressure is rmuch better today Will D/C today with prn pseudophed. Admission and Anticipated Discharge Date Admission Date: July 30, 2022 Subjective Patient feeling much better today. No lightheadedness or dizziness. No focal neuro complaints. Physical Exam Constitutional: WD/WN, vitals as above Neck: trachea midline Respiratory: normal respiratory effort; no respiratory distress Cardiovascular: Rate/Rhythm: regular rate and regular rhythm Extremities: normal capillary refill Musculoskeletal: no cyanosis or clubbing, extremities motor strength 5/5 Skin: + incision (dry and clean) Neurologic: CN's II-XI intact bilaterally and moves all extremities Psychiatric: Orientation: alert and oriented x 3 Results & Data ([facility]) Vital Signs (Past 12 Hours) Vital Signs Temp Pulse Resp BP BP BP Pulse Ox 08/01/22 12:07 120/78 08/01/22 08:46 110/72 08/01/22 06:27 36.9 C 75 22 113/79 97 O2 Del Method 08/01/22 12:07 08/01/22 08:46 08/01/22 06:27 Room Air
--- NOTE | 2022-08-02 08:19 | Discharge Summary ---
Date of Service August 02, 2022 Admission HPI Per Admitting Provider Ayad is a 71-year-old gentleman who we have been seeing for carotid artery disease. A CT angio was done in [facility] showed a 90% narrowing of his right internal carotid artery. He underwent emergency open heart surgery at [place]. Most of his symptoms have weakness lightheadedness has resolved since his surgery. He still remains with headaches. He was seen by neurology who ordered an MRI and MRA. These did not show any new findings. He is asymptomatic from his carotid disease Admission Exam Per Admitting Provider Constitutional: WD/WN, vitals as above Neck: trachea midline, no thyromegaly Respiratory: normal respiratory effort, lungs clear to auscultation Cardiovascular: RRR, no murmur, no edema Vessels: normal peripheral pulses Gastrointestinal (Abdomen): normal bowel sounds, soft, nontender, no hepatosplenomegaly Musculoskeletal: no cyanosis or clubbing, extremities motor strength 5/5 Neurologic: CN's II-XI intact bilaterally and moves all extremities Psychiatric: Orientation: alert and oriented x 3 Principal Diagnosis 1. s/p R TCAR 2. Severe R ICA stenosis Discharge Exam Constitutional WD/WN, vitals as above Neck trachea midline, no thyromegaly trachea midline Respiratory normal respiratory effort, lungs clear to auscultation normal respiratory effort; no respiratory distress Cardiovascular RRR, no murmur, no edema Rate/Rhythm: regular rate and regular rhythm Vessels: normal peripheral pulses Extremities: normal capillary refill Gastrointestinal (Abdomen) normal bowel sounds, soft, nontender, no hepatosplenomegaly Musculoskeletal no cyanosis or clubbing, extremities motor strength 5/5 Skin + incision (dry and clean) Neurologic CN's II-XI intact bilaterally and moves all extremities Psychiatric Orientation: alert and oriented x 3 Discharge Data Allergies Allergy/AdvReac Type Severity Reaction Status Date / Time No Known Allergies Allergy Verified 07/30/22 06:14 Consultations 07/30/22 10:26 Consult Remedial Masseur Routine Procedures Performed Operation Date: 07/30/22 08:00 Actual Procedures p Right Transcarotid Artery Revascularization(Right) - Ildefonso Acevedo MD Ordered Studies 07/30/22 07:16 sono, invasive monitoring [US point of care ultrasound] Stat 07/30/22 07:30 EV angio carotid cerv RT Routine US EV guide vascular access Routine Hospital Course (1) Right-sided extracranial carotid artery stenosis: Patient POD #2 from a TCAR procedure of the right carotid. He is doing well. His blood pressure is much better today. Will D/C today with prn pseudophed. Total Time Total Time Spent Total Time Spent (In Minutes): 0 Discharge Plan Discharge Items Patient Disposition: Home - Self-Care Reason For Visit: Right Internal Carotid Artery Stenosis Discharge Diagnosis: Right carotid stenosis, Stent of right carotid artery Activity: Per Instructions section Lifting: Gradually increase as tolerated Driving/Machine Use: Resume 3 days after discharge Non-emergency contact: Surgeon Call non-emergency contact if: your temperature is above 101.5, your wound has increased redness, your wound has increased drainage and your wound pain has increased Follow-up/Referrals: Fay Cruz PA-C [Primary Care Provider] - Diet: Heart Healthy Addtl Attending Provider Instructions: SPECIAL CARE INSTRUCTIONS: Medications: * Continue to take Aspirin as directed. Incision Care: * You may shower, but do not rub incision. You may let the warm soapy water run over it. Be sure to dry the incision well after bathing. * Do not shave directly over the incision until it is healed. * DO NOT IMMERSE THE INCISION IN A TUB/POOL/etc. UNTIL HEALED. Restrictions: * Do not drive for at least one week or if you are still taking any narcotic pain medication. * Do not lift anything heavier than a gallon of milk for one week after going home. Possible Complications: * Numbness - It is normal to have some numbness around the incision. Numbness can extend beyond the incision to areas of the neck, ear and face. The numbness is due to bruising of nerves during the surgery and will gradually improve over a period of months. * Hoarseness/Difficulty Speaking and Swallowing - The bruising of nerves in the neck can also cause a hoarse voice, difficulty speaking or swallowing. This may improve over time, HOWEVER, if it continues for more than a few days please contact our office ([phone]). * Excessive Swelling - There will be some swelling immediately after surgery which usually resolves within one week. If you notice that the swelling is getting worse, notify your surgeon ([phone]). * Drainage/Bleeding - If there is any drainage or bleeding, it should be a very small amount (less than a teaspoon per day). If you have excessive bleeding or drainage from the incision, call your surgeon ([phone]) right away. ACTIVATION OF EMERGENCY MEDICAL SYSTEM: Call 911, immediately, if you experience any of the following: Warning Signs and Symptoms of Stroke: * Sudden numbness or weakness of the face, arm or leg, especially on one side of the body * Sudden confusion, trouble speaking or understanding * Sudden trouble seeing in one or both eyes * Sudden trouble walking, dizziness, loss of balance or coordination * Sudden severe headache with no cause Do not delay calling 911 if you experience any warning signs or symptoms of a stroke. Delay in seeking medical attention may affect what treatments can be given to you. Risk Factors for Stroke: You can reduce your chances of stroke by working with your medical provider to adopt a healthy lifestyle. Some specific ways to lower your chance of stroke are: * If you are a smoker, now is the time to stop smoking cigarettes * If you are diabetic, improve the control of your blood sugars * Avoid excessive amounts of alcohol * Control high blood pressure * Lose weight if you are overweight * Be sure to lead an active lifestyle * Eat a healthy diet low in salt, cholesterol and fat You should know about other risk factors for stroke that you are unable to control. These include: * Age 55 years or older * Male gender * Certain racial groups: , or / * Family History of Stroke, Mini stroke or Heart Attack * Sickle Cell Disease You will be receiving a call from the Vascular Surgery Nurse after you are discharged. FOLLOW UP VISIT: It is important for you to keep your follow up appointments with your medical provider. Keep any scheduled doctor appointments. Pending Studies at Discharge: No Stand-Alone Forms: My [facility] Advice Wallet, Smoking Cessation Medications and DC Order Prescriptions: New pseudoephedrine HCl 30 mg Tablet 60 mg PO Q6H PRN (Reason: hypotension) Qty: 10 0RF Rx Instructions: Take blood pressure three times daily. Take one tab if blood pressure 100 or less systolic. oxycodone-acetaminophen [Percocet] 5-325 mg tablet 1 tab PO Q8H PRN (Reason: pain) Qty: 10 0RF Continued lorazepam 0.5 mg tablet 0.5 mg PO .COMPLEX PRN (Reason: Anxiety) Rx Instructions: 0.5 mg PO In the AM & 12PM PRN; lorazepam 0.5 mg tablet 1 mg PO HS metoprolol tartrate 25 mg tablet 25 mg PO BID gabapentin 300 mg capsule 300 mg PO TID potassium bicarb-citric acid 10 mEq tablet, effervescent 10 meq PO QAM furosemide 20 mg tablet 20 mg PO DAILY Qty: 30 5RF atorvastatin 80 mg tablet 80 mg PO HS Qty: 90 3RF aspirin 81 mg Tablet,Chewable 81 mg PO QAM Plavix 75 mg PO QPM Discharge Orders: Discharge Order (Routine); Ordered 08/01/22 Ordered By: Ildefonso Acevedo Admission Data Admit Date/Time: 07/30/22 07:19 Attending Provider: Ildefonso Acevedo Admit Provider: Ildefonso Acevedo Primary Care Provider: Fay Cruz Other Providers: Joesph Amaya ; Samy Lomas ; Moi Warren ; Soto Ivey ; Peng Jeffries ; Nasir Landers ; Erica Reinoso ; Ajith Ching ; Erica Patterson Other Interventions: Discharge Summary Assessment (RN) Last Done: 08/01/22 14:07
--- NOTE | 2022-08-08 07:35 | Procedure Note ---
Angiogram Post Procedure Fluoroscopy Time (minutes): 4 Radiation (mGy): 157 Contrast: 50 Post Operative Report Pre & Post Diagnosis Operation Date: 07/30/22 08:00 Pre-Op Diagnosis: Right Internal Carotid Artery Stenosis Post-Op Diagnosis: Right Internal Carotid Artery Stenosis I identified the patient and participated in the time-out.: Yes Procedure Operation Date: 07/30/22 08:00 Actual Procedures p Right Transcarotid Artery Revascularization(Right), ultrasound localization of left common femoral vein - Ildefonso Acevedo MD Surgeon Ildefonso Acevedo MD Nocturnist Jessica,PAC Estimated Blood Loss 50 Findings Consistent with Post-Op Diagnosis Specimens none Anesthesia Type General Complications none Disposition Accompanied Patient To Recovery: No Disposition: Recovery Room Description of Procedure The patient was taken to the operating room and placed in supine position. After general anesthesia was accomplished the groins and right side of the neck and chest were prepped and draped in a sterile manner. Timeout was performed and the patient was identified. A transverse incision was made just above the clavicle between the heads of the sternocleidomastoid. This is carried down to where the common carotid artery was identified. It was isolated. It was slung with umbilical tape. Next the U stitch was placed in the common carotid artery with a 6-0 Prolene suture. Patient was given 8000 heparin at that time. Ultrasound was then used to localize the left common femoral vein. The vein was patent and compressed easily. Under ultrasound guidance the left common femoral vein was punctured and the venous sheath was inserted. This was aspirated and flushed with heparinized saline. ACT at that time was greater than 250. Using micropuncture technique the common carotid artery was punctured. The micro sheath was inserted to 3 cm. Injection was then done showing the bifurcation. There was a significant lesion seen at the origin of the internal carotid artery on the right side. We then inserted the J-wire left and short of the lesion. The micro sheath was removed and the TCAR sheath was inserted. Once it was in place and held against the artery it was sutured to the chest wall and the incision edge. We then flushed the tubing appropriately. The venous return tubing was clamped onto the TCAR sheath. It was flushed through and then attached to the venous inflow sheath in the left groin. Sheath was checked for flow. After nicely cleared nicely. The common carotid artery was then clamped. Flow reversal was instituted. We inserted a 5 x 3 balloon backloaded on the wire. The wire was passed through the lesion into the petrous portion of the internal carotid. The 5mm balloon was then advanced to the lesion. Lesion was then predilated with a 5 mm balloon. The balloon was removed. We then inserted the 9 x 30 stent. This was deployed across the lesion without difficulty. The catheter was removed. The carotid was allowed to go 2 minutes with flow reversal. Completion angiogram was done at that time which showed good results with the stent. Again we allowed 2 minutes of flow reversal to occur. After that was completed, the common carotid artery was unclamped. The venous return tubing was clamped and removed from the TCAR sheath. The blood was allowed to flow back into the venous system. Once this was completed the sheath was pulled from the groin and pressure was applied. The TCAR sheath was then removed and the 6-0 Prolene suture securely tied. Hemostasis was noted of the puncture site. Wound was irrigated with Ancef solution. Adequate hemostasis was obtained of the wound. Once this was noted the wound was closed in usual fashion using a 3-0 Vicryl suture for the subcutaneous layer and a 4-0 subcuticular Vicryl suture for the skin edges. Dermabond was used for dressing.The patient left the operation room in satisfactory condition and tolerated the procedure well. All needle and sponge counts were correct at the end of the procedure. Barb Lemus Pac assisted due to lack of resident availability and was necessary for positioning, draping, retraction, wound closure deep layers, subcutaneous tissue, and skin closure and was necessary for assisting with the case. I attest to the content of the Intraoperative Record and any orders documented therein. Any exceptions are noted below.
== END 2022-08-01 15:29 | disposition home or self-care (01) | DRG 35 ==
LOC: ASU 05:44 → 1E 07:19 → 3W 07-31 13:58
PROC: EV.TCAR (2022-07-30 08:00)

== ENCOUNTER 2025-07-02 02:00 | Observation (INO) ==
--- NOTE | 2025-07-02 02:34 | Emergency Department Note ---
Impression & Plan Near syncope, Sustained VT (ventricular tachycardia) ED Provider Note Provider: Bruce Lopez MD CHIEF COMPLAINT: Near syncope HISTORY OF PRESENT ILLNESS: Patient is a 75-year-old gentleman with a history of CAD, heart block with pacemaker, hypertension, NSVT presenting here today with near syncopal episode at least twice tonight. Patient states has been feeling fairly well. 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 Drove down okay. On the process of getting the truck rate and drive back and began to experience palpitations and a pounding in his chest and near syncope and lightheadedness and dizziness. Did not fall or syncopized. Denies actual chest pain. Denies feeling really short of breath. Was in a really warm area and got in the truck and turned on the air conditioning. Started feel a bit better and drove back home locally. Nearing home here had a second episode that was a bit briefer but similar. No chest pain. No actual syncope. No trauma. Given these 2 episodes and still feeling just a little bit off came here for further evaluation. Does report he has had some fatigue earlier this summer and cardiology decreased his metoprolol from 150 mg daily to 125 mg daily. His fatigue is improved. PAST MEDICAL HISTORY: As noted above MEDICATIONS: Reviewed no medications. SOCIAL HISTORY: Former smoker PHYSICAL EXAM: GENERAL: alert and oriented in no acute distress on stretcher Head: normocephalic and atraumatic EYES: No injection, discharge or icterus. EOMI. NECK: Trachea midline. Supple. ENT: Mucous membranes pink and moist. LUNGS: Airway patent. No retractions. Breath sounds clear HEART: Irregular rate and rhythm. No chest wall tenderness with the left upper chest pacemaker appreciable subcutaneously ABDOMEN: Soft and non-tender, without guarding or rebound. SKIN: Acyanotic, warm, dry, without rashes EXTREMITIES: Without swelling, tenderness or deformity NEUROLOGICAL: No focal deficits moving all extremities. No aphasia. No facial droop or slurred speech. Ambulatory. EK bpm with a paced rhythm. Occasional PAC. No clear acute ST segment elevation with a right bundle branch block. CONTINUOUS CARDIAC MONITORING: was ordered and showed a heart rate of 70s to 80s bpm in predominantly paced rhythm occasional PACs and PVC Patient's laboratory studies and imaging reviewed. Differential includes Vasovagal event, dehydration, infection, hypoglycemia, electrolyte abnormalities, cardiac sources, intracerebral event, pulmonary embolism, seizure, toxicologic, neurologic, as well as other pathologies. IMPRESSION/MEDICAL DECISION MAKING: Patient well-appearing in no distress here. Denies any infectious symptoms. To at least near syncopal episodes tonight. Pacemaker interrogated. Has having frequent PACs here. No chest pain reported. No evidence of STEMI. Blood work here without significant anemia leukocytosis. No significant electrolyte abnormality or signs of renal dysfunction. TSH is normal. Troponin returns normal at 1.9. Doubt this is ischemic. Pacemaker interrogation discussed with [employer] and had an episode around 10 PM this past evening of several nonsustained VT episodes and then at least a 14-second period of sustained VT. This is a pacemaker not an AICD. No therapies available. Device personal financial representative also states the device likely understands the total length of the episode. Discussed with the patient. Given that he did travel quite a bit we will complete a CT of the chest to exclude an occult PE but it seems likely he had significant cardiac arrhythmia/VT episode causing his symptoms. Given the symptomatic event Will bring in for further care and observation. Given additional IV dose of metoprolol here to help hopefully reduce ectopy and further episodes until further evaluation by cardiology later this morning. He was agreeable with this plan and the hospitalist was contacted. CTA of the chest was negative. DIAGNOSIS: VT, near syncope DISPOSITION: Hospitalist will evaluate Patient was agreeable with this plan. Past Med/Surg History Problem List (Updated 07/02/25 @ 06:07 by Bruce Lopez M.D.) Sustained VT (ventricular tachycardia) (Acute) Cardiomyopathy, ischemic Near syncope (Acute) NSVT (nonsustained ventricular tachycardia) AVB (atrioventricular block) Cardiac pacemaker Heart failure EF 38% Hypercholesteremia Hypertension controlled, stable per pt Right-sided extracranial carotid artery stenosis Headache Pre-operative cardiovascular examination Arthritis of hip (Chronic) Carpal tunnel syndrome Wrist stiffness Wrist pain Cubital tunnel syndrome Scapholunate ligament injury, no instability CHB (complete heart block) (Acute) Non-ST elevation (NSTEMI) myocardial infarction (Acute) Pacemaker Leukocytosis Acute non-ST elevation myocardial infarction (NSTEMI) (Acute) 03/2022 [facility]-s/p CABG x 3 04/2022, small dominant diffusely diseased RCA too small for bypass per MD cardio records CAD (coronary artery disease), hoopa coronary artery s/p CABG x 3, small dominant diffusely diseased RCA too small for bypass Stenosis of right internal carotid artery Medical History (Updated 07/02/25 @ 06:07 by Bruce Lopez M.D.) Fatigue Pacemaker 03/2022 [facility] DR SOLOMON-[employer]- LAST CHECKED 1 MO AGO Melena Syncope denies recent syncopal episodes Peripheral vascular disease RLE stent (Dr Acevedo/2017) Hearing deficit Left Carpal tunnel syndrome Depression Anxiety Surgical History S/P CABG x 3 [facility] -04/2022 S/P cardiac catheterization 04/2022 [facility] History of carpal tunnel release Left CTR: 12/22/19: MAC sedation [facility] [place] Hx of left cataract extraction History of colonoscopy Hx of excision of epidermal inclusion cyst Dr. 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 How many Children do You have: 5 Feels Safe at Home: Yes Assistive Devices: None Allergies Allergies Allergy/AdvReac Type Severity Reaction Status Date / Time No Known Allergies Allergy Verified 05/04/25 09:49 Home Meds Home Medications Medication Instructions Recorded Confirmed aspirin 81 mg chewable tablet 81 mg PO QAM 03/27/22 05/04/25 lorazepam 0.5 mg tablet 1 mg PO HS 04/30/22 05/04/25 gabapentin 300 mg capsule 300 mg PO TID 05/29/22 05/04/25 Previous Rx's Medication Instructions Recorded atorvastatin 80 mg tablet 80 mg PO HS #90 tabs 05/29/22 amlodipine 2.5 mg tablet 2.5 mg PO DAILY #90 tabs 08/27/24 metoprolol succinate 100 mg 100 mg PO DAILY #90 tabs 05/04/25 tablet,extended release 24 hr metoprolol succinate 25 mg 25 mg PO DAILY #90 tabs 05/04/25 tablet,extended release 24 hr Results & Data (ED) Vital Signs Vital Signs - 24 hr 07/02/25 02:06 07/02/25 02:21 07/02/25 04:05 Temperature 36.5 C Temperature Source Oral Pulse Rate 68 82 80 Respiratory Rate 18 Respiratory Effort / Characteristics Non-Labored Spontaneous Respiratory Depth Normal Respiratory Pattern Regular Blood Pressure 160/101 H 113/89 Blood Pressure Mean 120 Blood Pressure Position Sitting Pulse Oximetry 97 Oxygen Delivery Method Room Air Sepsis Recent Fever Within 48 Hours No Sepsis New/Unexplained Change in Mental Status No Sepsis Action Taken by Nursing No Action Required 07/02/25 04:31 07/02/25 04:31 07/02/25 05:13 Temperature Temperature Source Pulse Rate 80 82 Respiratory Rate 18 18 Respiratory Effort / Characteristics Non-Labored Spontaneous Respiratory Depth Normal Respiratory Pattern Regular Blood Pressure 137/87 Blood Pressure Mean Blood Pressure Position Pulse Oximetry 97 97 Oxygen Delivery Method Room Air Room Air Sepsis Recent Fever Within 48 Hours Sepsis New/Unexplained Change in Mental Status Sepsis Action Taken by Nursing Laboratory Data 07/02/25 02:33 07/02/25 02:33 Lab Results 07/02/25 07/02/25 Range/Units 02:33 04:00 WBC 9.15 (4.8-10.8) K/ul RBC 4.71 (4.70-6.10) M/uL Hgb 14.5 (14.0-18.0) g/dl Hct 41.6 L (42.0-52.0) % MCV 88.3 (80.0-100.0) fL MCH 30.8 (25.0-34.0) pg MCHC 34.9 (32.0-36.0) g/dL RDW Std Deviation 41.3 (36.4-46.3) fL RDW Coeff of Marco Antonio 12.7 (11.5-14.5) % Plt Count 237 (130-400) K/uL MPV 9.8 (9.4-12.4) fL Immature Gran % (Auto) 0.4 % Neut % (Auto) 60.3 % Lymph % (Auto) 27.5 % Hopkins % (Auto) 8.1 % Eos % (Auto) 3.4 % Baso % (Auto) 0.3 % Neut # (Auto) 5.51 (1.40-6.50) K/uL Lymph # (Auto) 2.52 (1.20-3.40) K/uL Hopkins # (Auto) 0.74 H (0.11-0.59) K/uL Eos # (Auto) 0.31 (0.00-0.50) K/uL Baso # (Auto) 0.03 (0.00-0.20) K/uL Immature Gran # (Auto) 0.04 (0.01-0.20) K/uL PT 10.7 (9.0-12.0) Seconds INR 1.0 (0.9-1.1) Sodium 137 (136-145) mmol/L Potassium 4.2 (3.5-5.1) mmol/L Chloride 106 (98-107) mmol/L Carbon Dioxide 24 (21-32) mmol/L Anion Gap 7 (3-11) BUN 23 (6-23) mg/dl Creatinine 0.89 (0.6-1.4) mg/dl Est Cr Clr Drug Dosing 80.2 ml/min eGFR 88.81 BUN/Creatinine Ratio 25.8 H (10-20) Glucose 112 H (70-99(Fasting)) mg/dl Calcium 8.9 (8.6-10.3) mg/dl Magnesium 1.9 (1.7-2.4) mg/dl Total Bilirubin 0.5 (0.2-1.0) mg/dl AST 19 (13-39) U/L ALT 11 (7-52) U/L Alkaline Phosphatase 96 (34-104) U/L Troponin I High Sens 12.9 (0-20) pg/ml Total Protein 7.0 (6.0-8.3) gm/dl Albumin 3.9 (3.4-5.0) gm/dl Globulin 3.1 (2.5-4.0) gm/dl Albumin/Globulin Ratio 1.3 (0.9-2) TSH 3.496 (0.300-4.500) uIu/ml Urine Color Yellow Urine Appearance Clear (Clear) Urine pH 5.5 (4.5-7.5) Ur Specific Brick 1.013 (1.000-1.030) Urine Protein Negative (Negative) Urine Glucose (UA) Negative (Negative) Urine Ketones Negative (Negative) Urine Blood Negative (Negative) Urine Nitrite Negative (Negative) Urine Bilirubin Negative (Negative) Urine Urobilinogen Negative (Negative) Ur Leukocyte Esterase Negative (Negative) Urine Comment Administered Medications Discontinued Medications Ioversol (Optiray 320 100ml) 93 ml IV ONCE ONE Stop: 07/02/25 04:07 Last Admin: 07/02/25 05:13 Dose: Not Given Documented By: LEANA Ioversol (Optiray 320 125ml) 118 ml IV ONCE ONE Stop: 07/02/25 04:08 Last Admin: 07/02/25 04:07 Dose: 118 ml Documented By: FRANCINE Metoprolol Tartrate (Metoprolol Tartrate 1 Mg/Ml Vial) 5 mg IV NOW STA Stop: 07/02/25 03:53 Last Admin: 07/02/25 04:05 Dose: 5 mg Documented By: KALPESH Imaging Data Radiologist's Impression: Chest X-Ray 07/02/25 02:55 EXAM: XR chest 1V portable CLINICAL HISTORY: near syncope, palpitations TECHNIQUE: An X-ray image of the chest is obtained in AP projection. COMPARISON: No prior studies are available for comparison. FINDINGS: Pulmonary Parenchyma: Lungs are clear bilaterally. No evidence of consolidation, collapse, or focal opacities. No pulmonary nodules are identified. No evidence of pleural effusion or pleural thickening. Heart and Mediastinum: Mild cardiomegaly, with sternotomy sutures. Evidence of a left-sided pacemaker inserted in place. No mediastinal widening or masses. No hilar or mediastinal lymphadenopathy. Bony Thorax: Bony thorax appears intact without fractures or deformities. Soft Tissues: Soft tissues overlying the chest wall are unremarkable. IMPRESSION: 1. No acute cardiopulmonary abnormalities are identified. 2. Mild cardiomegaly. Electronically signed by Lyndon Elizabeth 07-02-2025 03:54 AM Chest CTA 07/02/25 03:35 EXAM: CT angio chest PE protocol CLINICAL HISTORY: PE TECHNIQUE: Contiguous axial images were obtained from the neck base through the upper abdomen following intravenous administration of iodinated contrast material. Angiographic images were processed, 3D MIP images were acquired for interpretation. If IV contrast material had not been administered, the likelihood of detecting abnormalities relevant to the patient's condition would have been substantially decreased. Coronal and sagittal 3-D MIPs were likewise performed and indicated to increase the sensitivity of detectin diffuse clinically relevant pathology. CT scan was performed according to ALARA (as low as reasonable achievable). COMPARISON: None. FINDINGS: Adequate contrast bolus without evidence of pulmonary embolism. The central airways are patent. Few tiny bibasal atelectasis bands - likely post inflammatory changes Rest of the lungs are clear. No pleural effusion. The heart, aorta, and pulmonary arteries are of normal size and configuration. There are coronary artery and aortic atherosclerotic calcifications. No pericardial effusion is identified. The thyroid is unremarkable. No mediastinal, hilar, or axillary lymphadenopathy is noted. No suspicious lytic or sclerotic osseous lesions are identified. Cardiac pacemaker insitu Spondylodegenerative changes in visualised spine IMPRESSION: No evidence of pulmonary embolism Few tiny bibasal atelectasis bands - likely post inflammatory changes. Electronically signed by Quique Benito 07-02-2025 04:56 AM Discharge Plan Visit Data Chief Complaint: Vertigo Stated Complaint: DIZZY,WEAKNESS ED Provider: Bruce Lopez Discharge Problem: Near syncope, Sustained VT (ventricular tachycardia) Patient Disposition: Being Evaluated by Hospitalist Condition: Fair Forms Stand Alone [facility] Pres[facility] Prescriptions: No Action amlodipine 2.5 mg tablet 2.5 mg PO DAILY Qty: 90 3RF lorazepam 0.5 mg tablet 1 mg PO HS gabapentin 300 mg capsule 300 mg PO TID atorvastatin 80 mg tablet 80 mg PO HS Qty: 90 3RF metoprolol succinate 100 mg tablet extended release 24 hr 100 mg PO DAILY Qty: 90 3RF metoprolol succinate 25 mg tablet extended release 24 hr 25 mg PO DAILY Qty: 90 3RF aspirin 81 mg Tablet,Chewable 81 mg PO QAM Referrals Referrals: Fay Cruz PA-C [Primary Care Provider] -
[2025-07-02 02:51] LABS: Hematocrit (blood only) 41.6 % (42.0-52.0); Hemoglobin 14.5 g/dl (14.0-18.0); Immature Granulocytes # (auto) 0.04 K/uL (0.01-0.20); Immature Granulocytes % (auto) 0.4 %; Mean Corpuscular Hemoglobin 30.8 pg (25.0-34.0); Mean Corpuscular Volume 88.3 fL (80.0-100.0); Platelet Count 237 K/uL (130-400); RDW Standard Deviation 41.3 fL (36.4-46.3); Red Blood Count 4.71 M/uL (4.70-6.10); White Blood Count 9.15 K/ul (4.8-10.8)
[2025-07-02 03:07] LABS: Alanine Aminotransferase 11.0 U/L (7-52); Albumin Globulin Ratio 1.3 (0.9-2); Alkaline Phosphatase 96.0 U/L (34-104); Anion Gap 7.0 (3-11); Bilirubin,Total 0.5 mg/dl (0.2-1.0); Blood Urea Nitrogen 23.0 mg/dl (6-23); Calcium 8.9 mg/dl (8.6-10.3); Carbon Dioxide 24.0 mmol/L (21-32); Chloride 106.0 mmol/L (98-107); Creatinine Clr Calc Pharmacy 80.2 ml/min; Globulin 3.1 gm/dl (2.5-4.0); Glucose 112.0 mg/dl (70-99(Fasting)); Potassium 4.2 mmol/L (3.5-5.1); Sodium 137.0 mmol/L (136-145); Total Protein 7.0 gm/dl (6.0-8.3)
[2025-07-02 03:16] LABS: Magnesium 1.9 mg/dl (1.7-2.4)
[2025-07-02 03:20] LABS: INR 1.0 (0.9-1.1); Prothrombin Time 10.7 Seconds (9.0-12.0)
[2025-07-02 03:31] LABS: Thyroid Stimulating Hormone 3.496 uIu/ml (0.300-4.500)
--- NOTE | 2025-07-02 03:55 | XRay Report ---
EXAM: XR chest 1V portable CLINICAL HISTORY: near syncope, palpitations TECHNIQUE: An X-ray image of the chest is obtained in AP projection. COMPARISON: No prior studies are available for comparison. FINDINGS: Pulmonary Parenchyma: Lungs are clear bilaterally. No evidence of consolidation, collapse, or focal opacities. No pulmonary nodules are identified. No evidence of pleural effusion or pleural thickening. Heart and Mediastinum: Mild cardiomegaly, with sternotomy sutures. Evidence of a left-sided pacemaker inserted in place. No mediastinal widening or masses. No hilar or mediastinal lymphadenopathy. Bony Thorax: Bony thorax appears intact without fractures or deformities. Soft Tissues: Soft tissues overlying the chest wall are unremarkable. IMPRESSION: 1. No acute cardiopulmonary abnormalities are identified. 2. Mild cardiomegaly. Electronically signed by Lyndon Elizabeth 07-02-2025 03:54 AM
[2025-07-02] MEDS: METOPROLOL TARTRATE 1 MG/ML VIAL IV STA (04:05)
[2025-07-02] MEDS: OPTIRAY 320 125ml IV ONE (04:07)
[2025-07-02 04:26] LABS: Appearance Urine Clear (Clear); Glucose Urine UA Negative (Negative)
--- NOTE | 2025-07-02 04:41 | History & Physical Report ---
Date of Service July 02, 2025 Assessment & Plan (1) Sustained VT (ventricular tachycardia): (2) NSVT (nonsustained ventricular tachycardia): (3) Near syncope: Plan Patient is a 75 y/o male with a PMHx including CAD s/p CABG x 3 Vessels, CHB s/p Permanent Dual Chamber Pacemaker, Hypertension, Dyslipidemia, NSVT, Cardiomyopathy (EF 35% to 40%). Patient presented after numerous episodes of presyncope and/or palpitations. Pacer report showed numerous episodes of NSVT and then a 14-second episode of SVT. He is being admitted for telemetry monitoring and to have cardiology eval. #Sustained VT/presyncope - Pacer report from ED showed numerous episodes of NSVT and then a 14-second episode of SVT this evening. Trop 12.9. No signs of infection (no leukocytosis, UA negative, CXR negative), TSH WNL, electrolytes stable (K+ 4.2, mag 1.9). Pacer not a ICD. - defer repeat echo, most recent 02/2025 was stress echo and showed unsustained VT in recovery, LV mildly dilated, EF 35 to 40%, severely hypokinetic inferior/inferior septum, mild LVH, mild AR, mild MR Cardiology consulted, patient follows with Dr. Regi Marti in outpatient setting who is on-call today Lyme screen ordered Will hold amlodipine to allow for metoprolol adjustments - received Lopressor 5 Mg IV in ED Continue metoprolol succinate 125 Mg p.o.; could consider transition to twice daily dosing - telemetry monitoring #HTN - continue metoprolol, holding amlodipine #CAD - s/p CABG x 3 vessels 2021. Continue ASA and statin VTE ppx: SCDs, low risk and obs status Dispo: PCU, obs - possible dc home 07/02 after cardiology eval Admission and Anticipated Discharge Date Admission Date: 07/02/25 History of Present Illness Chief Complaint: vertigo Primary Care Provider: Fay Cruz PA-C Patient is a 75 y/o male with a PMHx including CAD s/p CABG x 3 Vessels, CHB s/p Permanent Dual Chamber Pacemaker, Hypertension, Dyslipidemia, NSVT, Cardiomyopathy (EF 35% to 40%). Patient presented after numerous episodes of presyncope and/or palpitations. Pacer report showed numerous episodes of NSVT and then a 14-second episode of SVT. He is being admitted for telemetry monitoring and to have cardiology eval. Patient seen at bedside. 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 He was approximately outside for 20 to 30 minutes when he developed an episode of dizziness and feeling like his legs were rubber. Someone was able to help him to his truck and the episode resolved after 2 to 3 minutes of sitting in the air conditioning. He does endorse feeling like he was having heart palpitations during this episode. He then drove home in approximately 2-2 and half hours into his drive when he was almost to the [place] area he felt flushed, dizzy, disoriented, mild blurred vision, with heart palpitations so he pulled over. He got out of the truck and again had an episode of feeling like his legs were rubber. This episode resolved within 2 to 3 minutes. He dropped off the truck and was returning to his car, he had yet another episode on exertion. He then drove himself to the ED. He denies any chest pain or dyspnea during the events. He stated he has never had anything like this before. It is noted that patient used to be on metoprolol succinate 150 Mg daily however had significant fatigue with this was decreased to 100mg daily 03/23 and then increased to 125 Mg daily 05/04. Previous pacer reports show 263 episodes of NSVT. Allergies Allergy/AdvReac Type Severity Reaction Status Date / Time No Known Allergies Allergy Verified 05/04/25 09:49 Home Medications Medication Instructions Recorded Confirmed Type aspirin 81 mg chewable tablet 81 mg PO QAM 03/27/22 05/04/25 History lorazepam 0.5 mg tablet 1 mg PO HS 04/30/22 05/04/25 History atorvastatin 80 mg tablet 80 mg PO HS #90 tabs 05/29/22 05/04/25 Rx gabapentin 300 mg capsule 300 mg PO TID 05/29/22 05/04/25 History amlodipine 2.5 mg tablet 2.5 mg PO DAILY #90 tabs 08/27/24 05/04/25 Rx metoprolol succinate 100 mg 100 mg PO DAILY #90 tabs 05/04/25 05/04/25 Rx tablet,extended release 24 hr metoprolol succinate 25 mg 25 mg PO DAILY #90 tabs 05/04/25 05/04/25 Rx tablet,extended release 24 hr Past Med/Surg History Problem List (Updated 07/02/25 @ 05:26 by Ariella Tadeo PA-C) Sustained VT (ventricular tachycardia) Cardiomyopathy, ischemic Near syncope NSVT (nonsustained ventricular tachycardia) AVB (atrioventricular block) Cardiac pacemaker Heart failure EF 38% Hypercholesteremia Hypertension controlled, stable per pt Right-sided extracranial carotid artery stenosis Headache Pre-operative cardiovascular examination Arthritis of hip (Chronic) Carpal tunnel syndrome Wrist stiffness Wrist pain Cubital tunnel syndrome Scapholunate ligament injury, no instability CHB (complete heart block) (Acute) Non-ST elevation (NSTEMI) myocardial infarction (Acute) Pacemaker Leukocytosis Acute non-ST elevation myocardial infarction (NSTEMI) (Acute) 03/2022 [facility]-s/p CABG x 3 04/2022, small dominant diffusely diseased RCA too small for bypass per [place] cardio records CAD (coronary artery disease), [place] coronary artery s/p CABG x 3, small dominant diffusely diseased RCA too small for bypass Stenosis of right internal carotid artery Medical History (Updated 07/02/25 @ 05:26 by Ariella Tadeo PA-C) Fatigue Pacemaker 03/[address] [facility] [address] SOLOMON-[employer]TRONIC- LAST CHECKED 1 MO AGO Melena Syncope denies recent syncopal episodes Peripheral vascular disease RLE stent (Dr Acevedo/2017) Hearing deficit Left Carpal tunnel syndrome Depression Anxiety Surgical History S/P CABG x 3 [facility] [place] -04/2022 S/P cardiac catheterization 04/2022 [facility] History of carpal tunnel release Left CTR: 12/22/19: MAC sedation at [facility] [place] Hx of left cataract extraction History of colonoscopy Hx of excision of epidermal inclusion cyst Dr. 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 Non-toxic appearing. HEENT- EOMI, mucous membranes moist. Hearing grossly intact. Heart-normal S1 and S2. No murmurs, rubs or gallops. Lungs-clear bilaterally, no respiratory distress, no accessory muscle use. Abdomen-normal bowel sounds and soft. No ascites noted. Non-tender. Extremities- no clubbing, cyanosis, or edema. Rheumatologic-normal range of motion. Psychiatric-normal affect. Results & Data Results & Data Vital Signs (Past 12 Hours) Vital Signs Temp Pulse Resp BP Pulse Ox O2 Del Method 07/02/25 04:31 80 18 97 Room Air 07/02/25 04:31 18 97 Room Air 07/02/25 04:05 80 113/89 07/02/25 02:21 82 07/02/25 02:06 36.5 C 68 18 160/101 H 97 Room Air Laboratory Results reviewed CBC, CMP, magnesium, troponin, TSH, UA Diagnostic Findings reviewed CTA and CXR Medications Administered EDLopressor 5 Mg IV ECG Additional Comments: ordered Code Status & VTE Plan Code Status dnr/dni VTE Prophylaxis Plan VTE Prophylaxis will be ordered: Yes Supervising Physician Co-Signing Physician Notes Attending addendum: I have physically seen this patient, have supervised the PEDRO's activities, and agree with the H&P unless as otherwise noted. Assessment and Plan: The patient is a 75-year-old male with past medical history including CAD status post CABG x 3, CHB status post permanent dual-chamber pacemaker, hypertension, dyslipidemia, NSVT, cardiomyopathy with EF 35-40%. He presents to the emergency department after 3 episodes of near syncope and/or palpitations. His most recent pacer report indicates up to 263 episodes of SVT but was not needing shocked. He was referred for evaluation to the [facility] due to newly more symptomatic episodes of nonsustained V. tach Sustained V. tach/presyncope/hypertension/CAD/ischemic cardiomyopathy/presence of pacemaker- More significant episodes happen over the past several hours Most recent echo was 03/11, normal stress echo that showed unsustained V. tach in recovery, EF 35-40%, severely hypokinetic inferior/inferior septum, mild LVH, mild AR, mild MR Borderline screen Hold amlodipine to allow for further blood pressure increased to adjust metoprolol succinate Received Lopressor 5 mg IV from the ED Continue metoprolol succinate 125 mg p.o. every morning, would likely benefit from split dosing twice daily Continue aspirin 81 mg every morning Hyperlipidemia- Continue atorvastatin 80 mg daily Anxiety/insomnia/neuropathy- Continue gabapentin, lorazepam PG Care Time/CCT Total # of Minutes Spent Total Time Spent with Patient: Total time spent is greater than 50% in coordination of care (as documented) at patient's floor/unit and/or counseling patient: Coding Level of Care Code 51984 INT INP/OBS CARE 75MIN Diagnoses Sustained VT (ventricular tachycardia) I47.20 NSVT (nonsustained ventricular tachycardia) I47.29 Near syncope R55
--- NOTE | 2025-07-02 04:56 | CT Scan Report ---
EXAM: CT angio chest PE protocol CLINICAL HISTORY: PE TECHNIQUE: Contiguous axial images were obtained from the neck base through the upper abdomen following intravenous administration of iodinated contrast material. Angiographic images were processed, 3D MIP images were acquired for interpretation. If IV contrast material had not been administered, the likelihood of detecting abnormalities relevant to the patient's condition would have been substantially decreased. Coronal and sagittal 3-D MIPs were likewise performed and indicated to increase the sensitivity of detectin diffuse clinically relevant pathology. CT scan was performed according to ALARA (as low as reasonable achievable). COMPARISON: None. FINDINGS: Adequate contrast bolus without evidence of pulmonary embolism. The central airways are patent. Few tiny bibasal atelectasis bands - likely post inflammatory changes Rest of the lungs are clear. No pleural effusion. The heart, aorta, and pulmonary arteries are of normal size and configuration. There are coronary artery and aortic atherosclerotic calcifications. No pericardial effusion is identified. The thyroid is unremarkable. No mediastinal, hilar, or axillary lymphadenopathy is noted. No suspicious lytic or sclerotic osseous lesions are identified. Cardiac pacemaker insitu Spondylodegenerative changes in visualised spine IMPRESSION: No evidence of pulmonary embolism Few tiny bibasal atelectasis bands - likely post inflammatory changes. Electronically signed by Quique Benito 07-02-2025 04:56 AM
[2025-07-02] MEDS: OPTIRAY 320 100ml IV ONE (05:13)
[2025-07-02] MEDS ORDERED: MELATONIN 3 MG TAB PO PRN (06:29)
[2025-07-02] MEDS ORDERED: DOCUSATE SODIUM 100 MG CAP PO PRN (06:29)
[2025-07-02] MEDS ORDERED: ONDANSETRON INJ 2 MG/ML 2 ML VIAL IV PRN (06:29)
[2025-07-02] MEDS ORDERED: ACETAMINOPHEN 325 MG TAB PO PRN (06:29)
[2025-07-02 06:41] LABS: Polychromasia 1+
[2025-07-02 08:07] LABS: Influenza A virus by PCR Negative (Neg); Influenza B virus by PCR Negative (Neg); SARS CoV2 RNA(COVID-19) Ceph NEGATIVE (Negative)
[2025-07-02] MEDS: METOPROLOL SUCC 25MG EXT REL TAB PO SCH (08:30)
[2025-07-02] MEDS: ASPIRIN 81 MG ECTAB PO SCH (08:30)
[2025-07-02] MEDS: METOPROLOL SUCC 50MG EXT REL TAB PO SCH (08:30)
[2025-07-02] MEDS: GABAPENTIN 300 MG CAP PO SCH (08:30)
--- NOTE | 2025-07-02 09:51 | Cardiology Consultation ---
Date of Consultation July 02, 2025 Assessment & Plan (1) Sustained VT (ventricular tachycardia): Plan 1. Ventricular tachycardia: This ventricular tachycardia was probably technically sustained because he had symptoms, but it was self terminating and is similar to what we have identified before. These arrhythmias are often catecholamine dependent which is why I would like to use beta-blockade for them. Unfortunately he has not been able to tolerate high doses of beta-blockade, high doses are often necessary to control the arrhythmia. This episode may have been due to his split dosing of beta-blockers (which will give a more stable blood level but will reduce the level during the day). I prefer to have people take metoprolol succinate once a day in the morning because that will give a higher level throughout the day when typically catecholamines are higher and increased beta-blockade is necessary. I discussed treatment options with him, ideally we would go up on the beta- seferino but he has intolerable side effects on the higher doses. Since we do have a possible explanation for this event with his high stress during the day yesterday we may not need to abandon our current approach. I discussed other options with him which include changing to a different beta-seferino although I do not know if that would help much but a drug like Bystolic might be better tolerated (even though it technically is not approved for this indication but is a very good beta-seferino) might be beneficial. Other options include antiarrhythmic therapy and ablation. I discussed ablation to some extent however the arrhythmia has to be present to map the arrhythmia, sometimes giving isoproterenol can trigger it or programmed electrical stimulation but not always so ablation overall does not have a very good success. At this point we decided to try continuing our current approach, but he is going to take 125 mg of metoprolol succinate daily in the morning rather than split dose. We can follow that up in the office and if it does not work we can consider these other options. I think it is safe from my standpoint for him to go home today. I discussed all this with his daughter in the room today. History of Present Illness Reason for Consultation: Ventricular tachycardia Attending Physician: Jefferson Blue MD History of Present Illness This is a 75-year-old male who had known peripheral vascular disease with iliac artery stenting as well as carotid endarterectomy but was not aware of cardiac issues until March 22, 2022 when he developing sudden severe headaches as well as presyncope and during one of these episodes he was observed by EMS to be in complete heart block. While in the emergency room he developed periods of asystole with unresponsiveness and he had a temporary pacemaker placed. He went on to have a dual-chamber permanent pacemaker implanted on March 25, 2022. He has had relatively infrequent ventricular pacing over the years but had resolution of his presyncopal symptoms following pacemaker implantation. Following pacemaker implantation he developed symptoms of chest discomfort, cheek and jaw discomfort associated with activities and he came in to the hospital on April 15, 2022 where he had an elevated troponin with anterolateral T wave abnormalities. Echocardiography that day showed low normal left ventricular systolic function with no obvious wall motion abnormalities. He had cardiac catheterization on April 16, 2022 where he was found to have severe multivessel coronary artery disease including quite severe LAD and RCA stenosis as well as less severe disease in the circumflex and left main. He therefore was referred to [facility] and underwent coronary bypass surgery x3 on April 19, 2022. He had a headache evaluated including a CTA which showed a 90% stenosis of the right internal carotid artery. Ultimately this required treatment with stent placement, but that was not done until July 30, 2022. Unfortunately his headaches have continued. A stress echo was performed on February 17, 2025 and showed inferior wall hypokinesis which appeared to be a scar, nonsustained ventricular tachycardia in recovery and an average functional capacity. His left ventricular function was moderately reduced with a resting ejection fraction of 35 to 40%. He has had identification of prolonged NSVT on pacemaker monitoring. Although he has had NSVT historically he had an episode on October 26, 2024 which appeared to be in excess of 25 seconds with A-V dissociation and a ventricular cycle length of around 360 to 380 ms. This terminated spontaneously, it occurred at 5:30 PM and he did not recall being symptomatic however that was identified sometime later on pacemaker monitoring. He continued to have episodes of NSVT and his metoprolol was gradually increased to 150 mg daily however he did develop significant symptoms of fatigue. His metoprolol was therefore decreased to From 150 mg daily to 125 mg daily on March 23, 2025 with improvement in his symptoms of fatigue. He also began to split dose the metoprolol, taking 25 mg early in the morning, 50 mg later and 50 mg in the evening. He had been doing this for some time recently. 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 He had a somewhat stressful day, he drove to [place] and it was very hot there and he was uncomfortable, it was also late in the day and when he drove back he began to have the symptoms. He did not have chest discomfort. In the emergency room he was noted to have multiple runs of nonsustained ventricular tachycardia. He has had no further symptoms since coming to the emergency room and staying overnight. Allergies Allergy/AdvReac Type Severity Reaction Status Date / Time No Known Allergies Allergy Verified 05/04/25 09:49 Home Medications Medication Instructions Recorded Confirmed Type aspirin 81 mg chewable tablet 81 mg PO QAM 03/27/22 05/04/25 History lorazepam 0.5 mg tablet 1 mg PO HS 04/30/22 05/04/25 History atorvastatin 80 mg tablet 80 mg PO HS #90 tabs 05/29/22 05/04/25 Rx gabapentin 300 mg capsule 300 mg PO TID 05/29/22 05/04/25 History amlodipine 2.5 mg tablet 2.5 mg PO DAILY #90 tabs 08/27/24 05/04/25 Rx metoprolol succinate 100 mg 100 mg PO DAILY #90 tabs 05/04/25 05/04/25 Rx tablet,extended release 24 hr metoprolol succinate 25 mg 25 mg PO DAILY #90 tabs 05/04/25 05/04/25 Rx tablet,extended release 24 hr Patient History Medical History Fatigue Pacemaker 03/[address] [facility] [address] SOLOMON-MEDTRONIC- LAST CHECKED 1 MO AGO Melena Syncope denies recent syncopal episodes Peripheral vascular disease RLE stent (Dr Acevedo/2017) Hearing deficit Left Carpal tunnel syndrome Depression Anxiety Surgical History S/P CABG x 3 [facility] -04/2022 S/P cardiac catheterization 04/2022 [facility] History of carpal tunnel release Left CTR: 20: MAC sed[place] [facility] [place] Hx of left cataract extraction History of colonoscopy Hx of excision of epidermal inclusion cyst Dr. 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 HEENT: Unremarkable Neck: No jugular venous distention, carotid pulses are normal and equal bilaterally without bruits. Pulmonary: Clear to auscultation bilaterally. Cardiac: Regular rhythm with no murmur, gallop or rub. Abdomen: Soft, nontender with normal bowel sounds. Extremities: No edema. Neurologic: No focal findings. Gait is steady. Skin: The device site is well-healed without erythema, swelling or tenderness. No rash, ecchymoses or petechiae. Results & Data Vital Signs (Past 12 Hours) Vital Signs Temp Pulse Pulse Resp BP BP Pulse Ox 07/02/25 08:12 36.5 C 65 20 131/87 98 07/02/25 06:10 36.5 C 74 18 146/89 H 96 07/02/25 05:51 82 17 129/79 98 07/02/25 05:13 82 137/87 07/02/25 04:31 80 18 97 07/02/25 04:31 18 97 07/02/25 04:05 80 113/89 07/02/25 02:21 82 07/02/25 02:06 36.5 C 68 18 160/101 H 97 O2 Del Method 07/02/25 08:12 Room Air 07/02/25 06:10 Room Air 07/02/25 05:51 Room Air 07/02/25 05:13 07/02/25 04:31 Room Air 07/02/25 04:31 Room Air 07/02/25 04:05 07/02/25 02:21 07/02/25 02:06 Room Air Laboratory Results Cardiac Enzymes 07/02/25 Range/Units 02:33 AST 19 (13-39) U/L Troponin I High Sens 12.9 (0-20) pg/ml Coagulation 07/02/25 Range/Units 02:33 PT 10.7 (9.0-12.0) Seconds CBC 07/02/25 Range/Units 02:33 WBC 9.15 (4.8-10.8) K/ul RBC 4.71 (4.70-6.10) M/uL Hgb 14.5 (14.0-18.0) g/dl Hct 41.6 L (42.0-52.0) % Plt Count 237 (130-400) K/uL Neut # (Auto) 5.51 (1.40-6.50) K/uL Lymph # (Auto) 2.52 (1.20-3.40) K/uL [place] # (Auto) 0.74 H (0.11-0.59) K/uL Eos # (Auto) 0.31 (0.00-0.50) K/uL Baso # (Auto) 0.03 (0.00-0.20) K/uL Comprehensive Metabolic Panel 07/02/25 Range/Units 02:33 Sodium 137 (136-145) mmol/L Potassium 4.2 (3.5-5.1) mmol/L Chloride 106 (98-107) mmol/L Carbon Dioxide 24 (21-32) mmol/L BUN 23 (6-23) mg/dl Creatinine 0.89 (0.6-1.4) mg/dl Glucose 112 H (70-99(Fasting)) mg/dl Calcium 8.9 (8.6-10.3) mg/dl AST 19 (13-39) U/L ALT 11 (7-52) U/L Alkaline Phosphatase 96 (34-104) U/L Total Protein 7.0 (6.0-8.3) gm/dl Albumin 3.9 (3.4-5.0) gm/dl Intake and Output 07/01/25 07/02/25 07/02/25 22:59 06:59 14:59 Other: # Unmeasured Voids 1 Weight 91.2 kg Weight Measurement Method Built in [facility] Diagnostic Findings Telemetry: Ventricular pacing typically in the 70s. PG Care Time/CCT Total # of Minutes Spent Total Time Spent with Patient: Total time spent is greater than 50% in coordination of care (as documented) at patient's floor/unit and/or counseling patient: Coding Level of Care Code 28072 INT INP/OBS CARE 3/75MIN Diagnoses Sustained VT (ventricular tachycardia) I47.20
[2025-07-02 10:10] LABS: Lyme Screen Rflx Confirmation Positive (Negative)
[2025-07-02 10:48] LABS: Lyme Ab IgG 2nd Tier Confirm Positive (Negative); Lyme Ab IgM 2nd Tier Confirm Positive (Negative)
[2025-07-02 11:44] VITALS: BP 145/87; PULSE 70; RESP 17; TEMP 97.3; O2SAT 95
--- NOTE | 2025-07-02 13:32 | Electrocardiogram Report ---
Test Reason : Blood Pressure : */* mmHG Vent. Rate : 75 BPM Atrial Rate : 75 BPM P-R Int : 244 ms QRS Dur : 166 ms QT Int : 452 ms P-R-T Axes : 34 -22 38 degrees QTcB Int : 504 ms Atrial-paced rhythm with prolonged AV conduction with occasional Premature atrial complexes Indeterminate axis Right bundle branch block Abnormal ECG When compared with ECG of 21-Mar-2025 11:12, Premature atrial complexes are now Present Confirmed by Paul Ortez ([id number]) on 07/02/2025 1:32:13 PM Referred By: REFERRED SELF Confirmed By: Paul Ortez
--- NOTE | 2025-07-02 14:00 | Discharge Summary ---
Discharge Summary Date of Service July 02, 2025 Principal Dx & Hospital Course #1 = Principal Diagnosis (1) Sustained VT (ventricular tachycardia): Mr. Ayad Laguerre is a 75 PMH of V-tach, PVD with iliac stent, CAD s/p bypass surgery 2021, carotid stenosis, in March 2022 has has asystole, unresponsiveness, and has temporary pacemaker inserted. following pacemaker implant in march 2022 he has chest pain and was found to has multiple vessel CAD and s/p bypass surgery at [facility] in 04/19/2022 during his headache evaluation, his CTA found 90% stenosis of right internal carotid artery. with stent placement. during pacemaker monitoring, found prolonged NSVT and started on metoprolol incresaed to 150mg, he's developed fatigue and cardiology cut down to 125mg ER daily dose and fatigue resolved patient been splitting the dose to diffferent time during the day (25mg turn sewer, 50mg afternoon and then 50mg evening) on june 2025, he's has neaer syncope and palpitation and pounding on his chest, his CTA negative for PE. crdiology noted he's drove to [place] and was having significant heat exposure. he was seen by cardiology, recommended instead of splitting his metoprolol, that he take his metoprolol XL 125mg in the morning he's denied any palpitation, no chest pain, no shortness of breath he's able to ambulate around our hallway without difficulty we discussed that he's lyme testing is positive. he deferred starting doxycycyline he will f/u with cardiology within one week and follow up with PCP within 1-2 weeks (2) NSVT (nonsustained ventricular tachycardia): (3) Near syncope: Plan Patient is a 75 y/o male with a PMHx including CAD s/p CABG x 3 Vessels, CHB s/p Permanent Dual Chamber Pacemaker, Hypertension, Dyslipidemia, NSVT, Cardiomyopathy (EF 35% to 40%). Patient presented after numerous episodes of presyncope and/or palpitations. Pacer report showed numerous episodes of NSVT and then a 14-second episode of SVT. He is being admitted for telemetry monitoring and to have cardiology eval. #Sustained VT/presyncope - Pacer report from ED showed numerous episodes of NSVT and then a 14-second episode of SVT this evening. Trop 12.9. No signs of infection (no leukocytosis, UA negative, CXR negative), TSH WNL, electrolytes stable (K+ 4.2, mag 1.9). Pacer not a ICD. - defer repeat echo, most recent 02/2025 was stress echo and showed unsustained VT in recovery, LV mildly dilated, EF 35 to 40%, severely hypokinetic inferior/inferior septum, mild LVH, mild AR, mild MR Cardiology consulted, patient follows with Dr. Regi aMrti in outpatient setting who is on-call today Lyme screen ordered Will hold amlodipine to allow for metoprolol adjustments - received Lopressor 5 Mg IV in ED Continue metoprolol succinate 125 Mg p.o.; could consider transition to twice daily dosing - telemetry monitoring #HTN - continue metoprolol, holding amlodipine #CAD - s/p CABG x 3 vessels 2021. Continue ASA and statin VTE ppx: SCDs, low risk and obs status Dispo: PCU, obs - possible dc home 07/02 after cardiology eval Notes For Next Care Provider evaluation of lyme disease consider screening for symptom of sleep apnea Medication Changes From Visit instead of splitting the metoprolol dose cardiology recomended that he's begin metoprolol 125mg in the morning Admission HPI Per Admitting Provider Patient is a 75 y/o male with a PMHx including CAD s/p CABG x 3 Vessels, CHB s/p Permanent Dual Chamber Pacemaker, Hypertension, Dyslipidemia, NSVT, Cardiomyopathy (EF 35% to 40%). Patient presented after numerous episodes of presyncope and/or palpitations. Pacer report showed numerous episodes of NSVT and then a 14-second episode of SVT. He is being admitted for telemetry monitoring and to have cardiology eval. Patient seen at bedside. 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 He was approximately outside for 20 to 30 minutes when he developed an episode of dizziness and feeling like his legs were rubber. Someone was able to help him to his truck and the episode resolved after 2 to 3 minutes of sitting in the air conditioning. He does endorse feeling like he was having heart palpitations during this episode. He then drove home in approximately 2-2 and [address] into his drive when he was [place] he felt flushed, dizzy, disoriented, mild blurred vision, with heart palpitations so he pulled over. He got out of the truck and again had an episode of feeling like his legs were rubber. This episode resolved within 2 to 3 minutes. He dropped off the truck and was returning to his car, he had yet another episode on exertion. He then drove himself to the ED. He denies any chest pain or dyspnea during the events. He stated he has never had anything like this before. It is noted that patient used to be on metoprolol succinate 150 Mg daily however had significant fatigue with this was decreased to 100mg daily 03/23 and then increased to 125 Mg daily 05/04. Previous pacer reports show 263 episodes of NSVT. Discharge Exam VITALS: Reviewed. WEIGHT/BMI reviewed. GEN: Healthy appearing, well-developed, NAD. PSYCH: Good Judgment. AOx3. Normal memory, mood, and affect. HEENT -Head: NC/AT; NECK: Supple, with no masses. CV: RRR, no m/r/g; + for pacemaker LUNGS: CTAB, no w/r/c. ABD: Soft, NT/ND, NBS, no masses or organomegaly. : N/A SKIN: Warm, well perfused. No skin rashes or abnormal lesions. MSK: No deformities, Normal gait. NEURO: Ambulating with no limitations. Normal muscle strength and tone. No focal deficits. Discharge Plan Discharge Items Patient Disposition: Home - Self-Care Reason For Visit: SVT, PRESYNCOPE Discharge Diagnosis: tachycardia Condition on Discharge: Fair Activity: Resume your previous activity Non-emergency contact: Primary Care Provider and Carpenter Apprentice Call non-emergency contact if: your symptoms worsen and your rectal temperature is above 100.4 Follow-up/Referrals: Fay Cruz PA-C [Primary Care Provider] - Diet: Heart Healthy Addtl Attending Provider Instructions: follow up with cardiology follow up with your primary care doctor to screen for lyme titer Pending Studies at Discharge: No Stand-Alone Forms: My [employer], Smoking Cessation Medications and DC Order Prescriptions: Continued amlodipine 2.5 mg tablet 2.5 mg PO DAILY Qty: 90 3RF lorazepam 0.5 mg tablet 1 mg PO HS gabapentin 300 mg capsule 300 mg PO TID atorvastatin 80 mg tablet 80 mg PO HS Qty: 90 3RF metoprolol succinate 100 mg tablet extended release 24 hr 100 mg PO DAILY Qty: 90 3RF metoprolol succinate 25 mg tablet extended release 24 hr 25 mg PO DAILY Qty: 90 3RF aspirin 81 mg Tablet,Chewable 81 mg PO QAM Discharge Orders: Discharge Order (Routine); Ordered 07/02/25 Ordered By: Amanda Sanders/Other Patient Handouts: Preventing Lyme Disease, Ventricular Arrhythmia, ED Lyme Disease, ED Tick Bite, Antibiotic Treatment Admission Data Admit Date/Time: 07/02/25 05:07 Attending Provider: Jefferson Blue Admit Provider: Jefferson Blue Primary Care Provider: Fay Cruz Other Providers: Jefferson Blue; Paul Ortez Hospital Stay Data Consultations 07/02/25 04:22 ED Decision to Admit Stat 07/02/25 06:29 Consult Cardiology Routine Diagnostic Imagining Performed 07/02/25 03:35 CT angio chest PE protocol Stat Pending Results Patient Have Any Pending Studies at Discharge: No Discharge Instructions Given to Patient (Per Discharging Provider) follow up with cardiology follow up with your primary care doctor to screen for lyme titer Total Time Total Time Spent Total Time Spent (In Minutes): 35 minutes Coding Level of Care Code 58568 INP/OBS DISCH >30 MIN Diagnoses Sustained VT (ventricular tachycardia) I47.20 NSVT (nonsustained ventricular tachycardia) I47.29 Near syncope R55 Time Spent (min) 35
[2025-07-02] MEDS ORDERED: ATORVASTATIN 40 MG TAB PO SCH (21:00)
[2025-07-02] MEDS ORDERED: LORazepam 1 MG TAB PO SCH (21:00)
== END 2025-07-02 14:45 | disposition home or self-care (01) ==
LOC: SUATTDRO → 4W 02:00 → ED 02:00 → 4W 05:51

== ENCOUNTER 2025-07-09 20:29 | Inpatient (IN) ==
--- NOTE | 2025-07-09 20:59 | Emergency Department Note ---
Impression & Plan Ventricular tachycardia, Near syncope ED Provider Note NAME: TRUPIT SALOMON AGE: 75 SEX: M : 1950 ARRIVES VIA: Walk-In INFORMANT: [Patient] ED PROVIDER(S): [Joesph Ohara MD] CHIEF COMPLAINT: Near syncope HISTORY OF PRESENT ILLNESS: The patient is a 75-year-old male who presents to the ER with around 6 episodes today where he felt like he may pass out. The episodes last for seconds to maybe a minute. He gets a bit warm before the episodes occur. They occur randomly, sometimes at rest, sometimes if he is standing. He feels mildly short of breath. No chest pain. The patient was in our hospital and discharged a week ago. He was found to have V. tach. He had his medications changed. He is now taking metoprolol succinate 125 mg once daily, in the morning. The patient recalls having 1 episode yesterday but today, he has had multiple, 6 episodes. No fever, no cough or congestion. The patient states that he is currently on doxycycline for Lyme disease. The Lyme disease was diagnosed with his last hospitalization. When these episodes occur, he feels his heart pounding. As per the family at bedside, the patient has been a bit more confused today such that it takes him longer to respond to questioning. He almost seems to have to think about things a bit longer. PMHx/PSHx/Social Hx: See Below PHYSICAL EXAM: GENERAL: Patient is in no acute distress. HEENT: No acute trauma, normocephalic atraumatic, mucous membranes moist, no nasal congestion. NECK: No stridor, no adenopathy, no meningismus, trachea is midline. LUNGS: Clear to auscultation bilaterally, no wheeze, no rhonchi, breath sounds equal. HEART: Subtle systolic murmur with what seems like an occasional extra beat. Normal rate ABDOMEN: Soft, nontender, no peritonitis. EXTREMITIES: No cyanosis, full range of motion of all the joints without pain or difficulty. NEUROLOGIC: Oriented x 3, no acute motor or sensory deficits, no focal weakness. SKIN: No jaundice, no diaphoresis. DIFFERENTIAL DIAGNOSIS: Dysrhythmia, V. tach, electrolyte imbalance, anemia, among others. EMERGENCY DEPARTMENT PROCEDURES: MEDICAL DECISION MAKING: There is no leukocytosis or concerning anemia. There is a normal platelet count. No renal failure or significant electrolyte abnormality. No concerning liver enzyme elevation. Patient appears to be in euthyroid state. ECG shows an atrial pacemaker, no obvious ST elevation. Cardiac enzyme testing x 1 is not consistent with acute cardiac injury. Anaplasmosis and Babesia smears were negative. Lyme screen was positive however, only the IgG was positive, the IgM was negative. Chest x-ray did show cardiomegaly, no CHF or pneumonia. The pacemaker interrogation did show multiple runs of V. tach, the longest of the runs was 59 seconds. The patient was given a 500 cc saline bolus. He was given 5 mg of IV metoprolol. I did speak with cardiology. They recommended an IV amiodarone bolus and drip. The patient was ordered for IV amiodarone per protocol. I did speak with the patient, I did speak with case management, the on-call hospitalist was consulted. In short, despite his medication changes last week, the patient is having longer and more frequent runs of V. tach--admission is clearly warranted. Prior/Outside records/notes reviewed: Discharge summary note from 07/02/2025 describing his presentation, findings and outpatient plan. ECG per my interpretation: Indication was near syncope. The ECG shows an atrial pacemaker with a long AV conduction. There is a right bundle branch block. There are some occasional PACs. No ST elevation. QTc is 503. Continuous Cardiac Monitoring per my interpretation: An order was placed for continuous cardiac monitoring. The monitor shows a rate of 81 with atrial pacing. Imaging/x-ray results per my interpretation: Chest x-ray shows cardiomegaly, no CHF or pneumonia. Chronic Medical/Social conditions affecting care: Advanced age, history of V. tach Care/Management discussed with: Cardiology-Dr. Bond. Case management and the on-call hospitalist. Level of care consideration(s): After review of the information above and other included data: --I believe the patient requires escalation of care to admission Critical Care Note: I have personally spent 41 minutes of critical care time in the direct management of this patient. This includes bedside care, interpretation of diagnostic studies, and testing, discussion with consultants, patient, and family members, and other required patient management activities. This 41 minutes is in excess of all separately billable procedures. DISPOSITION: Admission Past Med/Surg History Problem List (Updated 07/09/25 @ 23:12 by Joesph Ohara MD) Near syncope (Acute) Ventricular tachycardia (Acute) Sustained VT (ventricular tachycardia) (Acute) Cardiomyopathy, ischemic Near syncope (Acute) NSVT (nonsustained ventricular tachycardia) AVB (atrioventricular block) Cardiac pacemaker Heart failure EF 38% Hypercholesteremia Hypertension controlled, stable per pt Right-sided extracranial carotid artery stenosis Headache Pre-operative cardiovascular examination Arthritis of hip (Chronic) Carpal tunnel syndrome Wrist stiffness Wrist pain Cubital tunnel syndrome Scapholunate ligament injury, no instability CHB (complete heart block) (Acute) Non-ST elevation (NSTEMI) myocardial infarction (Acute) Pacemaker Leukocytosis Acute non-ST elevation myocardial infarction (NSTEMI) (Acute) 03/2022 [facility]-s/p CABG x 3 04/2022, small dominant diffusely diseased RCA too small for bypass per [place] cardio records CAD (coronary artery disease), atka coronary artery s/p CABG x 3, small dominant diffusely diseased RCA too small for bypass Stenosis of right internal carotid artery Medical History Fatigue Pacemaker 03/[address] [facility] [address] SOLOMON-[facility]TRON[facility]- LAST CHECKED 1 MO AGO Melena Syncope denies recent syncopal episodes Peripheral vascular disease RLE stent (Dr Acevedo/2017) Hearing deficit Left Carpal tunnel syndrome Depression Anxiety Surgical History S/P CABG x 3 [facility] [place] S/P cardiac catheterization 04/2022 [facility] History of carpal tunnel release Left [place] 12[place]22[place] [facility] [place] of [place] cataract extraction History of colonoscopy Hx of excision of epidermal inclusion cyst Dr. 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 How many Children do You have: 5 Feels Safe at Home: Yes Assistive Devices: Glasses Allergies Allergies Allergy/AdvReac Type Severity Reaction Status Date / Time No Known Allergies Allergy Verified 05/04/25 09:49 Home Meds Home Medications Medication Instructions Recorded Confirmed aspirin 81 mg chewable tablet 81 mg PO QAM 03/27/22 05/04/25 lorazepam 0.5 mg tablet 1 mg PO HS 04/30/22 05/04/25 gabapentin 300 mg capsule 300 mg PO TID 05/29/22 05/04/25 Previous Rx's Medication Instructions Recorded atorvastatin 80 mg tablet 80 mg PO HS #90 tabs 05/29/22 amlodipine 2.5 mg tablet 2.5 mg PO DAILY #90 tabs 08/27/24 metoprolol succinate 100 mg 100 mg PO DAILY #90 tabs 05/04/25 tablet,extended release 24 hr metoprolol succinate 25 mg 25 mg PO DAILY #90 tabs 05/04/25 tablet,extended release 24 hr Results & Data (ED) Vital Signs Vital Signs - 24 hr 07/09/25 20:31 07/09/25 20:51 07/09/25 20:59 Temperature 36.6 C Temperature Source Temporal Artery Scan Pulse Rate 81 77 Pulse Rate [Right Finger] Pulse Rate from SpO2 Sensor Respiratory Rate 18 Respiratory Effort / Characteristics Non-Labored Spontaneous Respiratory Depth Normal Respiratory Pattern Regular Blood Pressure 154/100 H 140/103 H Blood Pressure [Right Arm] Blood Pressure Mean 118 109 Blood Pressure Mean [Right Arm] Pulse Oximetry 98 Oxygen Delivery Method Room Air Sepsis Recent Fever Within 48 Hours No Sepsis New/Unexplained Change in Mental Status N/A Sepsis Action Taken by Nursing No Action Required 07/09/25 21:18 07/09/25 21:20 07/09/25 21:24 Temperature Temperature Source Pulse Rate 76 78 Pulse Rate [Right Finger] 76 Pulse Rate from SpO2 Sensor 64 Respiratory Rate 15 18 20 Respiratory Effort / Characteristics Non-Labored Spontaneous Respiratory Depth Normal Respiratory Pattern Blood Pressure Blood Pressure [Right Arm] 140/103 H Blood Pressure Mean Blood Pressure Mean [Right Arm] 115 Pulse Oximetry 96 97 Oxygen Delivery Method Room Air Room Air Room Air Sepsis Recent Fever Within 48 Hours Sepsis New/Unexplained Change in Mental Status Sepsis Action Taken by Nursing 07/09/25 21:36 07/09/25 21:45 07/09/25 22:00 Temperature Temperature Source Pulse Rate 78 78 76 Pulse Rate [Right Finger] Pulse Rate from SpO2 Sensor 70 59 L 60 Respiratory Rate 22 18 20 Respiratory Effort / Characteristics Respiratory Depth Respiratory Pattern Blood Pressure Blood Pressure [Right Arm] Blood Pressure Mean Blood Pressure Mean [Right Arm] Pulse Oximetry 97 98 96 Oxygen Delivery Method Room Air Room Air Room Air Sepsis Recent Fever Within 48 Hours Sepsis New/Unexplained Change in Mental Status Sepsis Action Taken by Nursing 07/09/25 22:03 07/09/25 22:05 07/09/25 22:06 Temperature Temperature Source Pulse Rate 75 Pulse Rate [Right Finger] 78 Pulse Rate from SpO2 Sensor 76 Respiratory Rate 22 18 Respiratory Effort / Characteristics Non-Labored Spontaneous Respiratory Depth Normal Respiratory Pattern Blood Pressure 130/83 Blood Pressure [Right Arm] 130/83 Blood Pressure Mean 89 Blood Pressure Mean [Right Arm] 98 Pulse Oximetry 97 97 Oxygen Delivery Method Room Air Room Air Sepsis Recent Fever Within 48 Hours Sepsis New/Unexplained Change in Mental Status Sepsis Action Taken by Nursing 07/09/25 22:06 07/09/25 22:13 07/09/25 22:15 Temperature Temperature Source Pulse Rate 78 77 Pulse Rate [Right Finger] Pulse Rate from SpO2 Sensor 63 Respiratory Rate 20 Respiratory Effort / Characteristics Respiratory Depth Respiratory Pattern Blood Pressure 154/92 H 154/92 H Blood Pressure [Right Arm] Blood Pressure Mean 104 Blood Pressure Mean [Right Arm] Pulse Oximetry 97 Oxygen Delivery Method Room Air Sepsis Recent Fever Within 48 Hours Sepsis New/Unexplained Change in Mental Status Sepsis Action Taken by Nursing 07/09/25 22:15 07/09/25 22:18 07/09/25 22:21 Temperature Temperature Source Pulse Rate 77 81 Pulse Rate [Right Finger] Pulse Rate from SpO2 Sensor 68 86 Respiratory Rate 20 22 Respiratory Effort / Characteristics Respiratory Depth Respiratory Pattern Blood Pressure 154/92 H Blood Pressure [Right Arm] Blood Pressure Mean 104 Blood Pressure Mean [Right Arm] Pulse Oximetry 98 96 Oxygen Delivery Method Room Air Room Air Sepsis Recent Fever Within 48 Hours Sepsis New/Unexplained Change in Mental Status Sepsis Action Taken by Nursing 07/09/25 22:21 07/09/25 22:21 07/09/25 22:30 Temperature Temperature Source Pulse Rate 80 Pulse Rate [Right Finger] Pulse Rate from SpO2 Sensor 72 Respiratory Rate 17 Respiratory Effort / Characteristics Respiratory Depth Respiratory Pattern Blood Pressure 137/88 137/88 Blood Pressure [Right Arm] Blood Pressure Mean 108 108 Blood Pressure Mean [Right Arm] Pulse Oximetry 98 Oxygen Delivery Method Room Air Sepsis Recent Fever Within 48 Hours Sepsis New/Unexplained Change in Mental Status Sepsis Action Taken by Nursing 07/09/25 22:30 07/09/25 22:33 07/09/25 22:38 Temperature Temperature Source Pulse Rate 80 77 Pulse Rate [Right Finger] Pulse Rate from SpO2 Sensor Respiratory Rate 21 Respiratory Effort / Characteristics Respiratory Depth Respiratory Pattern Blood Pressure 158/107 H 158/107 H Blood Pressure [Right Arm] Blood Pressure Mean 116 Blood Pressure Mean [Right Arm] Pulse Oximetry Oxygen Delivery Method Sepsis Recent Fever Within 48 Hours Sepsis New/Unexplained Change in Mental Status Sepsis Action Taken by Nursing 07/09/25 22:39 07/09/25 22:45 07/09/25 22:51 Temperature Temperature Source Pulse Rate 76 81 77 Pulse Rate [Right Finger] Pulse Rate from SpO2 Sensor 78 72 71 Respiratory Rate 23 22 16 Respiratory Effort / Characteristics Respiratory Depth Respiratory Pattern Blood Pressure 175/98 H Blood Pressure [Right Arm] Blood Pressure Mean 123 Blood Pressure Mean [Right Arm] Pulse Oximetry 97 98 97 Oxygen Delivery Method Room Air Room Air Room Air Sepsis Recent Fever Within 48 Hours Sepsis New/Unexplained Change in Mental Status Sepsis Action Taken by Nursing 07/09/25 23:04 Temperature Temperature Source Pulse Rate 171 H Pulse Rate [Right Finger] Pulse Rate from SpO2 Sensor Respiratory Rate Respiratory Effort / Characteristics Respiratory Depth Respiratory Pattern Blood Pressure Blood Pressure [Right Arm] Blood Pressure Mean Blood Pressure Mean [Right Arm] Pulse Oximetry Oxygen Delivery Method Sepsis Recent Fever Within 48 Hours Sepsis New/Unexplained Change in Mental Status Sepsis Action Taken by Detention Medications Current Medication List: was personally reviewed by me Laboratory Data Attestation: I reviewed the patient's lab results. 07/09/25 20:51 07/09/25 20:51 Lab Results 07/09/25 Range/Units 20:51 WBC 9.26 (4.8-10.8) K/ul RBC 4.72 (4.70-6.10) M/uL Hgb 14.5 (14.0-18.0) g/dl Hct 41.6 L (42.0-52.0) % MCV 88.1 (80.0-100.0) fL MCH 30.7 (25.0-34.0) pg MCHC 34.9 (32.0-36.0) g/dL RDW Std Deviation 40.5 (36.4-46.3) fL RDW Coeff of Marco Antonio 12.4 (11.5-14.5) % Plt Count 245 (130-400) K/uL MPV 9.9 (9.4-12.4) fL Immature Gran % (Auto) 0.4 % Neut % (Auto) 54.3 % Lymph % (Auto) 31.7 % [place] % (Auto) 9.5 % Eos % (Auto) 3.6 % Baso % (Auto) 0.5 % Neut # (Auto) 5.02 (1.40-6.50) K/uL Lymph # (Auto) 2.94 (1.20-3.40) K/uL [place] # (Auto) 0.88 H (0.11-0.59) K/uL Eos # (Auto) 0.33 (0.00-0.50) K/uL Baso # (Auto) 0.05 (0.00-0.20) K/uL Immature Gran # (Auto) 0.04 (0.01-0.20) K/uL Sodium 134 L (136-145) mmol/L Potassium 4.6 (3.5-5.1) mmol/L Chloride 105 (98-107) mmol/L Carbon Dioxide 25 (21-32) mmol/L Anion Gap 4 (3-11) BUN 19 (6-23) mg/dl Creatinine 0.83 (0.6-1.4) mg/dl Est Cr Clr Drug Dosing 83.6 ml/min eGFR 90.71 BUN/Creatinine Ratio 22.9 H (10-20) Glucose 88 (70-99(Fasting)) mg/dl Calcium 9.2 (8.6-10.3) mg/dl Magnesium 2.1 (1.7-2.4) mg/dl Total Bilirubin 0.6 (0.2-1.0) mg/dl AST 18 (13-39) U/L ALT 11 (7-52) U/L Alkaline Phosphatase 89 (34-104) U/L Troponin I High Sens 10.9 (0-20) pg/ml Total Protein 7.3 (6.0-8.3) gm/dl Albumin 3.9 (3.4-5.0) gm/dl Globulin 3.4 (2.5-4.0) gm/dl Albumin/Globulin Ratio 1.1 (0.9-2) TSH 3.199 (0.300-4.500) uIu/ml Anaplasma Smear See Comment Babesia Smear See Comment Lyme Disease Screen Positive H (Negative) Lyme Tier 2 IgG Confirm Positive H (Negative) Lyme Tier 2 IgM Confirm Negative (Negative) Administered Medications Discontinued Medications Sodium Chloride (Nss) 500 mls @ 999 mls/hr IV .Q31M RADHAMES Stop: 07/09/25 21:15 Last Infusion: 07/09/25 22:08 Dose: Infused Documented By: Admin: 07/09/25 21:06 Dose: 999 mls/hr Documented By: KURTIS Metoprolol Tartrate (Metoprolol Tartrate 1 Mg/Ml Vial) 5 mg IV NOW STA Stop: 07/09/25 21:53 Last Admin: 07/09/25 22:13 Dose: 5 mg Documented By: KURTIS Discharge Plan Visit Data Chief Complaint: Syncope Stated Complaint: FAINTING, DIZZINESS, AND HEADACHE W/ LYME DISEASE ED Provider: Joesph Ohara Discharge Problem: Ventricular tachycardia, Near syncope Patient Disposition: Admitted As Inpatient Condition: Serious Forms Stand Alone Forms: My [facility] Prescriptions Prescriptions: No Action amlodipine 2.5 mg tablet 2.5 mg PO DAILY Qty: 90 3RF lorazepam 0.5 mg tablet 1 mg PO HS gabapentin 300 mg capsule 300 mg PO TID atorvastatin 80 mg tablet 80 mg PO HS Qty: 90 3RF metoprolol succinate 100 mg tablet extended release 24 hr 100 mg PO DAILY Qty: 90 3RF metoprolol succinate 25 mg tablet extended release 24 hr 25 mg PO DAILY Qty: 90 3RF aspirin 81 mg Tablet,Chewable 81 mg PO QAM Referrals Referrals: Fay Cruz PA-C [Primary Care Provider] -
[2025-07-09] MEDS: SODIUM CHLORIDE 0.9% 500 ML IV SCH (21:06)
[2025-07-09 21:19] LABS: Hematocrit (blood only) 41.6 % (42.0-52.0); Hemoglobin 14.5 g/dl (14.0-18.0); Immature Granulocytes # (auto) 0.04 K/uL (0.01-0.20); Immature Granulocytes % (auto) 0.4 %; Mean Corpuscular Hemoglobin 30.7 pg (25.0-34.0); Mean Corpuscular Volume 88.1 fL (80.0-100.0); Platelet Count 245 K/uL (130-400); RDW Standard Deviation 40.5 fL (36.4-46.3); Red Blood Count 4.72 M/uL (4.70-6.10); White Blood Count 9.26 K/ul (4.8-10.8)
[2025-07-09 21:23] LABS: Alanine Aminotransferase 11.0 U/L (7-52); Albumin Globulin Ratio 1.1 (0.9-2); Alkaline Phosphatase 89.0 U/L (34-104); Anion Gap 4.0 (3-11); Bilirubin,Total 0.6 mg/dl (0.2-1.0); Blood Urea Nitrogen 19.0 mg/dl (6-23); Calcium 9.2 mg/dl (8.6-10.3); Carbon Dioxide 25.0 mmol/L (21-32); Chloride 105.0 mmol/L (98-107); Creatinine Clr Calc Pharmacy 83.6 ml/min; Globulin 3.4 gm/dl (2.5-4.0); Glucose 88.0 mg/dl (70-99(Fasting)); Magnesium 2.1 mg/dl (1.7-2.4); Potassium 4.6 mmol/L (3.5-5.1); Sodium 134.0 mmol/L (136-145); Total Protein 7.3 gm/dl (6.0-8.3)
[2025-07-09 21:39] LABS: Thyroid Stimulating Hormone 3.199 uIu/ml (0.300-4.500)
[2025-07-09 21:54] LABS: Lyme Screen Rflx Confirmation Positive (Negative)
[2025-07-09] MEDS ORDERED: AMIODARONE IV BOLUS & DRIP IV STA (22:02)
[2025-07-09] MEDS ORDERED: STAT IV Infusion **Titration per Protocol STA (22:02)
[2025-07-09] MEDS ORDERED: 0.2 MICRON FILTER SET 1 EACH IV STA (22:02)
[2025-07-09] MEDS: METOPROLOL TARTRATE 1 MG/ML VIAL IV STA (22:13)
[2025-07-09 22:37] LABS: Lyme Ab IgG 2nd Tier Confirm Positive (Negative); Lyme Ab IgM 2nd Tier Confirm Negative (Negative)
--- NOTE | 2025-07-09 22:49 | History & Physical Report ---
Date of Service July 09, 2025 Assessment & Plan (1) Sustained VT (ventricular tachycardia): (2) Near syncope: (3) Lyme disease: (4) Cardiomyopathy, ischemic: Plan The patient is a 75-year-old male with a past medical history including sustained V. tach, ischemic cardiomyopathy, nonsustained V. tach, AV block, presence of ICD, hypercholesterolemia, hypertension, CAD, acute NSTEMI, and right ICA stenosis. The patient presents to the emergency department with complaints of near syncope, x 1 yesterday, and then x 6 today, the day of admission. He had most recently been admitted to [facility] from 07/02 in the a.m. and was discharged on 07/02 in the PM, for recurrent sustained V. tach, that was thought more due to physical stress of travel per cardiology. [employer] review of his ICD notes 9 episodes of sustained V. tach, which with 3 longest being 22 seconds, 38 seconds, and 59 seconds. Cardiology on-call Dr. Bond was contacted by the ED, and agrees that patient should be started on amiodarone bolus and drip, and this was begun in the ED, after receiving Lopressor 5 mg IV. The patient was then admitted to the PCU for ongoing treatment. The patient had also been diagnosed with Lyme disease at last hospitalization, and he did start oral doxycycline 4 days ago. Sustained V. tach/near syncope- The patient will be admitted to telemetry for serial cardiac enzymes, serial EKG's, cardiac rhythm monitoring Patient received Lopressor 5 mg IV, and then was started on amiodarone bolus/drip in the ED. Case was discussed with cardiology by the ED No anticoagulation per cardiology consult Potassium 4.6 and magnesium 2.1 Patient reports subjectively feeling better on amiodarone drip after about 1 hour Consult cardiology CAD/hypertension/HFrEF- Most recent EF on was 35-40% Hold amlodipine Continue aspirin Patient has been on metoprolol succinate 125 mg every morning Anticipate a lower needed dose of metoprolol succinate with the addition of amiodarone above For now placed on metoprolol succinate 75 mg every morning with hold parameters, but should be adjusted based on heart rate and blood pressure in the a.m. Lyme disease- Tested positive on 07/02 Lyme screen, IgM and IgG He was tested in the ED again this evening, and presently is Lyme screen pos itive, IgM negative, and IgG positive Last dose of doxycycline was this evening Continue dosing in the a.m., but changed to IV while in hospital, due to rhythm disturbances Insomnia- Continue lorazepam 1 mg by mouth at bedtime Hyperlipidemia- Continue atorvastatin Peripheral neuropathy- Continue gabapentin History of Present Illness Chief Complaint: The patient presents to the emergency department with complaints of near syncope, x 1 yesterday, and then x 6 today, the day of admission. He had most recently been admitted to [facility] from 07/02 in the a.m. and was discharged on 07/02 in the PM, for recurrent sustained V. tach, that was thought more due to physical stress of travel per cardiology. [employer] review of his ICD notes 9 episodes of sustained V. tach, which with 3 longest being 22 seconds, 38 seconds, and 59 seconds. Cardiology on-call Dr. Bond was contacted by the ED, and agrees that patient should be started on amiodarone bolus and drip, and this was begun in the ED, after receiving Lopressor 5 mg IV. Primary Care Provider: Fay Cruz PA-C The patient is a 75-year-old male with a past medical history including sustained V. tach, ischemic cardiomyopathy, nonsustained V. tach, AV block, presence of ICD, hypercholesterolemia, hypertension, CAD, acute NSTEMI, and right ICA stenosis. The patient presents to the emergency department with complaints of near syncope, x 1 yesterday, and then x 6 today, the day of admission. He had most recently been admitted to [facility] from 07/02 in the a.m. and was discharged on 07/02 in the PM, for recurrent sustained V. tach, that was thought more due to physical stress of travel per cardiology. [employer] review of his ICD notes 9 episodes of sustained V. tach, which with 3 longest being 22 seconds, 38 seconds, and 59 seconds. Cardiology on-call Dr. Bond was contacted by the ED, and agrees that patient should be started on amiodarone bolus and drip, and this was begun in the ED, after receiving Lopressor 5 mg IV. The patient was then admitted to the PCU for ongoing treatment. Allergies Allergy/AdvReac Type Severity Reaction Status Date / Time No Known Allergies Allergy Verified 05/04/25 09:49 Home Medications Medication Instructions Recorded Confirmed Type aspirin 81 mg chewable tablet 81 mg PO QAM 03/27/22 05/04/25 History lorazepam 0.5 mg tablet 1 mg PO HS 04/30/22 05/04/25 History atorvastatin 80 mg tablet 80 mg PO HS #90 tabs 05/29/22 05/04/25 Rx gabapentin 300 mg capsule 300 mg PO TID 05/29/22 05/04/25 History amlodipine 2.5 mg tablet 2.5 mg PO DAILY #90 tabs 08/27/24 05/04/25 Rx metoprolol succinate 100 mg 100 mg PO DAILY #90 tabs 05/04/25 05/04/25 Rx tablet,extended release 24 hr metoprolol succinate 25 mg 25 mg PO DAILY #90 tabs 05/04/25 05/04/25 Rx tablet,extended release 24 hr Past Med/Surg History Problem List (Updated 07/10/25 @ 00:21 by Jefferson Blue MD) Lyme disease Near syncope (Acute) Ventricular tachycardia (Acute) Sustained VT (ventricular tachycardia) (Acute) Cardiomyopathy, ischemic Near syncope (Acute) NSVT (nonsustained ventricular tachycardia) AVB (atrioventricular block) Cardiac pacemaker Heart failure EF 38% Hypercholesteremia Hypertension controlled, stable per pt Right-sided extracranial carotid artery stenosis Headache Pre-operative cardiovascular examination Arthritis of hip (Chronic) Carpal tunnel syndrome Wrist stiffness Wrist pain Cubital tunnel syndrome Scapholunate ligament injury, no instability CHB (complete heart block) (Acute) Non-ST elevation (NSTEMI) myocardial infarction (Acute) Pacemaker Leukocytosis Acute non-ST elevation myocardial infarction (NSTEMI) (Acute) 03/2022 [facility]-s/p CABG x 3 04/2022, small dominant diffusely diseased RCA too small for bypass per [place] cardio records CAD (coronary artery disease), [place] coronary artery s/p CABG x 3, small dominant diffusely diseased RCA too small for bypass Stenosis of right internal carotid artery Medical History Fatigue Pacemaker 03/[address] [facility] [address] SOLOMON-[employer]- LAST CHECKED 1 MO AGO Melena Syncope denies recent syncopal episodes Peripheral vascular disease RLE stent (Dr Acevedo/2017) Hearing deficit Left Carpal tunnel syndrome Depression Anxiety Surgical History S[place] [facility] [place] S/P cardiac catheterization 04/2022 [facility] History of carpal tunnel release Left CTR: 12/22/19: MAC sedation at [facility] [place] Hx of left cataract extraction History of colonoscopy Hx of excision of epidermal inclusion cyst Dr. 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 How many Children do You have: 5 Other Information That Helps Us Care for You: No Feels Safe at Home: Yes Safety Concerns: Feels Safe At This Time Assistive Devices: Glasses Review of Systems Review of Systems: The patient denies lower extremity swelling, sore throat, fevers, chills, sweats, fatigue, nausea, vomiting, diarrhea , constipation, abdominal pain, pelvic pain, blood in urine or stool, dysuria, urinary frequency or urgency, lightheadedness, dizziness, headache, memory loss, loss of consciousness, rash, abnormal bruising or bleeding, imbalance, focal weakness, numbness or tingling in arms or legs, generalized arthralgias or myalgias, back or neck pain, or night sweats. The review of systems is otherwise negative other than for that already noted above, and at least 10 systems have been reviewed. Physical Exam Physical Exam: The patient is awake, alert and oriented 3, well developed and well nourished, normocephalic and atraumatic, lying in bed and in no acute distress. HEENT--PERRL, EOMI, mucous membranes and oropharynx dry. Neck--supple. No JVD. No bruits. Thyroid normal, trachea midline, no adenopathy. Heart--intermittently tachycardic with frequent PVCs. No murmurs, rubs or gallops. Lungs--clear bilaterally, no respiratory distress, no accessory muscle use Extremities--no cyanosis or clubbing. No edema. There are good distal pulses b/l. Dermatologic--normal skin turgor, normal color, no abnormal lymph nodes, no rash. Neurologic--cranial nerves II through XII grossly intact. Rheumatologic--normal range of motion. Psychiatric--normal affect. Results & Data Results & Data Vital Signs (Past 12 Hours) Vital Signs Temp Pulse Pulse Resp BP BP Pulse Ox 07/09/25 22:38 158/107 H 07/09/25 22:33 77 21 07/09/25 22:30 80 158/107 H 07/09/25 22:30 80 17 98 07/09/25 22:21 137/88 07/09/25 22:21 137/88 07/09/25 22:21 81 22 96 07/09/25 22:18 77 20 98 07/09/25 22:15 154/92 H 07/09/25 22:15 154/92 H 07/09/25 22:13 77 154/92 H 07/09/25 22:06 78 20 97 07/09/25 22:06 78 18 130/83 97 07/09/25 22:05 130/83 07/09/25 22:03 75 22 97 07/09/25 22:00 76 20 96 07/09/25 21:45 78 18 98 07/09/25 21:36 78 22 97 07/09/25 21:24 78 20 07/09/25 21:20 76 18 140/103 H 97 07/09/25 21:18 76 15 96 07/09/25 20:59 77 07/09/25 20:51 140/103 H 07/09/25 20:31 36.6 C 81 18 154/100 H 98 O2 Del Method 07/09/25 22:38 07/09/25 22:33 07/09/25 22:30 07/09/25 22:30 Room Air 07/09/25 22:21 07/09/25 22:21 07/09/25 22:21 Room Air 07/09/25 22:18 Room Air 07/09/25 22:15 07/09/25 22:15 07/09/25 22:13 07/09/25 22:06 Room Air 07/09/25 22:06 Room Air 07/09/25 22:05 07/09/25 22:03 Room Air 07/09/25 22:00 Room Air 07/09/25 21:45 Room Air 07/09/25 21:36 Room Air 07/09/25 21:24 Room Air 07/09/25 21:20 Room Air 07/09/25 21:18 Room Air 07/09/25 20:59 07/09/25 20:51 07/09/25 20:31 Room Air Laboratory Results Laboratory Results WBC 9.26 K/ul (4.8-10.8) 07/09/25 20:51 RBC 4.72 M/uL (4.70-6.10) 07/09/25 20:51 Hgb 14.5 g/dl (14.0-18.0) 07/09/25 20:51 Hct 41.6 % (42.0-52.0) L 07/09/25 20:51 MCV 88.1 fL (80.0-100.0) 07/09/25 20:51 MCH 30.7 pg (25.0-34.0) 07/09/25 20:51 MCHC 34.9 g/dL (32.0-36.0) 07/09/25 20:51 RDW Std Deviation 40.5 fL (36.4-46.3) 07/09/25 20:51 RDW Coeff of Marco Antonio 12.4 % (11.5-14.5) 07/09/25 20:51 Plt Count 245 K/uL (130-400) 07/09/25 20:51 MPV 9.9 fL (9.4-12.4) 07/09/25 20:51 Immature Gran % (Auto) 0.4 % 07/09/25 20:51 Neut % (Auto) 54.3 % 07/09/25 20:51 Lymph % (Auto) 31.7 % 07/09/25 20:51 [place] % (Auto) 9.5 % 07/09/25 20:51 Eos % (Auto) 3.6 % 07/09/25 20:51 Baso % (Auto) 0.5 % 07/09/25 20:51 Neut # (Auto) 5.02 K/uL (1.40-6.50) 07/09/25 20:51 Lymph # (Auto) 2.94 K/uL (1.20-3.40) 07/09/25 20:51 [place] # (Auto) 0.88 K/uL (0.11-0.59) H 07/09/25 20:51 Eos # (Auto) 0.33 K/uL (0.00-0.50) 07/09/25 20:51 Baso # (Auto) 0.05 K/uL (0.00-0.20) 07/09/25 20:51 Immature Gran # (Auto) 0.04 K/uL (0.01-0.20) 07/09/25 20:51 Sodium 134 mmol/L (136-145) L 07/09/25 20:51 Potassium 4.6 mmol/L (3.5-5.1) 07/09/25 20:51 Chloride 105 mmol/L (98-107) 07/09/25 20:51 Carbon Dioxide 25 mmol/L (21-32) 07/09/25 20:51 Anion Gap 4 (3-11) 07/09/25 20:51 BUN 19 mg/dl (6-23) 07/09/25 20:51 Creatinine 0.83 mg/dl (0.6-1.4) 07/09/25 20:51 Est Cr Clr Drug Dosing 83.6 ml/min 07/09/25 20:51 eGFR 90.71 07/09/25 20:51 BUN/Creatinine Ratio 22.9 (10-20) H 07/09/25 20:51 Glucose 88 mg/dl (70-99(Fasting)) 07/09/25 20:51 Calcium 9.2 mg/dl (8.6-10.3) 07/09/25 20:51 Magnesium 2.1 mg/dl (1.7-2.4) 07/09/25 20:51 Total Bilirubin 0.6 mg/dl (0.2-1.0) 07/09/25 20:51 AST 18 U/L (13-39) 07/09/25 20:51 ALT 11 U/L (7-52) 07/09/25 20:51 Alkaline Phosphatase 89 U/L (34-104) 07/09/25 20:51 Troponin I High Sens 10.9 pg/ml (0-20) 07/09/25 20:51 Total Protein 7.3 gm/dl (6.0-8.3) 07/09/25 20:51 Albumin 3.9 gm/dl (3.4-5.0) 07/09/25 20:51 Globulin 3.4 gm/dl (2.5-4.0) 07/09/25 20:51 Albumin/Globulin Ratio 1.1 (0.9-2) 07/09/25 20:51 TSH 3.199 uIu/ml (0.300-4.500) 07/09/25 20:51 Urine Color Yellow 07/09/25 23:40 Urine Appearance Clear (Clear) 07/09/25 23:40 Urine pH 5.5 (4.5-7.5) 07/09/25 23:40 Ur Specific [place] 1.010 (1.000-1.030) 07/09/25 23:40 Urine Protein Negative (Negative) 07/09/25 23:40 Urine Glucose (UA) Negative (Negative) 07/09/25 23:40 Urine Ketones Negative (Negative) 07/09/25 23:40 Urine Blood Negative (Negative) 07/09/25 23:40 Urine Nitrite Negative (Negative) 07/09/25 23:40 Urine Bilirubin Negative (Negative) 07/09/25 23:40 Urine Urobilinogen Negative (Negative) 07/09/25 23:40 Ur Leukocyte Esterase Negative (Negative) 07/09/25 23:40 Urine Comment 07/09/25 23:40 Anaplasma Smear See Comment 07/09/25 20:51 Babesia Smear See Comment 07/09/25 20:51 Lyme Disease Screen Positive (Negative) H 07/09/25 20:51 Lyme Tier 2 IgG Confirm Positive (Negative) H 07/09/25 20:51 Lyme Tier 2 IgM Confirm Negative (Negative) 07/09/25 20:51 Code Status & VTE Plan Code Status Full code. VTE Prophylaxis Plan VTE Prophylaxis will be ordered: Yes PG Care Time/CCT Total # of Minutes Spent Total Time Spent with Patient: Total time spent is greater than 50% in coordination of care (as documented) at patient's floor/unit and/or counseling patient: Coding Level of Care Code 98885 INT INP/OBS CARE MIN Diagnoses Sustained VT (ventricular tachycardia) I47.20 Near syncope R55 Lyme disease A69.20 Cardiomyopathy, ischemic I25.5
[2025-07-09] MEDS: AMIODARONE / D5W 150 MG/100 ML BAG IV STA (23:06)
[2025-07-09] MEDS: AMIODARONE / D5W 360 MG/200 ML BAG IV ONE (23:17)
[2025-07-09 23:55] LABS: Appearance Urine Clear (Clear); Glucose Urine UA Negative (Negative)
[2025-07-10] MEDS: ACETAMINOPHEN 325 MG TAB PO PRN (00:14)
[2025-07-10] MEDS: LORazepam 1 MG TAB PO SCH (00:15)
--- NOTE | 2025-07-10 01:42 | XRay Report ---
Exam(s): XR CXR 1 VIEW EXAM: XR Chest, 1 View CLINICAL HISTORY: Reason for exam: weakness. TECHNIQUE: Frontal view of the chest. COMPARISON: Prior chest x-ray from July 02, 2025. FINDINGS: There is a pacemaker in left chest wall distal leads in the right atrium right ventricle. Lungs: Old to moderate peribronchial thickening of the central lower lobe bronchi. No consolidation. Pleural space: Unremarkable. No pneumothorax. Heart: Mild cardiomegaly. Status post RAMIREZ CABG. Mediastinum: Unremarkable. Normal mediastinal contour. Bones/joints: Status post median sternotomy with sternal wires intact. No acute fracture. IMPRESSION: Bronchitis, which may be of infectious or inflammatory etiologies. No consolidation or pleural effusion. Electronically signed by: Silvana Vázquez MD 07/10/25 01:41 AM
[2025-07-10] MEDS ORDERED: 0.2 MICRON FILTER SET 1 EACH IV ONE ×2 (03:08→04:58)
[2025-07-10] MEDS: AMIODARONE / D5W 150 MG/100 ML BAG IV STA ×2 (03:20→05:07)
[2025-07-10] MEDS: AMIODARONE / D5W 360 MG/200 ML BAG IV SCH (04:30)
[2025-07-10 06:41] LABS: Hematocrit (blood only) 42.4 % (42.0-52.0); Hemoglobin 14.8 g/dl (14.0-18.0); Immature Granulocytes # (auto) 0.05 K/uL (0.01-0.20); Immature Granulocytes % (auto) 0.5 %; Mean Corpuscular Hemoglobin 30.8 pg (25.0-34.0); Mean Corpuscular Volume 88.1 fL (80.0-100.0); Platelet Count 232 K/uL (130-400); RDW Standard Deviation 40.6 fL (36.4-46.3); Red Blood Count 4.81 M/uL (4.70-6.10); White Blood Count 9.10 K/ul (4.8-10.8)
[2025-07-10 06:44] LABS: Anion Gap 6.0 (3-11); Bilirubin,Total 0.5 mg/dl (0.2-1.0); Calcium 8.9 mg/dl (8.6-10.3); Carbon Dioxide 23.0 mmol/L (21-32); Chloride 108.0 mmol/L (98-107); Magnesium 2.0 mg/dl (1.7-2.4); Potassium 4.1 mmol/L (3.5-5.1); Sodium 137.0 mmol/L (136-145)
[2025-07-10 06:50] LABS: Alanine Aminotransferase 9.0 U/L (7-52); Albumin Globulin Ratio 1.2 (0.9-2); Alkaline Phosphatase 85.0 U/L (34-104); Blood Urea Nitrogen 14.0 mg/dl (6-23); Creatinine Clr Calc Pharmacy 95.8 ml/min; Globulin 2.9 gm/dl (2.5-4.0); Glucose 120.0 mg/dl (70-99(Fasting)); Total Protein 6.5 gm/dl (6.0-8.3)
[2025-07-10] MEDS: GABAPENTIN 300 MG CAP PO SCH (07:52)
[2025-07-10] MEDS: METOPROLOL SUCC 25MG EXT REL TAB PO SCH (07:52)
[2025-07-10] MEDS: DOXYCYCLINE HYCLATE 100 MG in DEXTROSE 5% MINI-B 100 ML IV SCH (07:52)
[2025-07-10] MEDS: ASPIRIN 81 MG ECTAB PO SCH (07:52)
--- NOTE | 2025-07-10 12:18 | Cardiology Progress Note ---
Date of Service July 10, 2025 Assessment & Plan (1) Sustained VT (ventricular tachycardia): Plan: -Had 9 episodes of ventricular tachycardia prior to presentation yesterday. Longest was 60 seconds in length. -87 beat run of ventricular tachycardia at 02 55 this morning. -Intravenous amiodarone started in the emergency room last evening. -Would continue intravenous amiodarone for at least 24 hours. (2) Cardiac pacemaker: Plan: -Management per Dr. Ortez. Admission and Anticipated Discharge Date Admission Date: July 09, 2025 Subjective The patient is resting comfortably bed without complaints of chest pain, dyspnea, palpitations, syncope, or presyncope. Physical Exam Physical Exam: In general this is a well-developed well-nourished white male in no acute distress. HEENT exam is negative. Neck reveals normal carotid upstrokes without bruits. Jugular venous pressure is flat at 90. There is no thyromegaly. Cardiovascular exam reveals a regular rhythm with distant heart sounds. No obvious murmurs. Lungs are clear without rales, rhonchi, or wheezes. Abdomen is soft without bruits. Extremities reveal intact radial artery and posterior tibial pulses bilaterally. There is no peripheral edema. Results & Data Vital Signs (Past 12 Hours) Vital Signs Temp Pulse Resp BP Pulse Ox O2 Del Method 07/10/25 12:03 36.5 C 70 20 117/70 98 Room Air 07/10/25 08:00 36.5 C 77 20 120/74 96 Room Air 07/10/25 03:33 131/86 07/10/25 03:16 36.4 C L 78 18 131/82 98 Room Air Diagnostic Findings shelter monitor noted an 87 beat run of ventricular tachycardia at 0255 this morning. PG Care Time/CCT Total # of Minutes Spent Total Time Spent with Patient: Total time spent is greater than 50% in coordination of care (as documented) at patient's floor/unit and/or counseling patient: Coding Level of Care Code 28427 SUB INP/OBS CARE 3/50MIN Diagnoses Sustained VT (ventricular tachycardia) I47.20 Cardiac pacemaker Z95.0
--- NOTE | 2025-07-10 12:49 | Electrocardiogram Report ---
Test Reason : Blood Pressure : */* mmHG Vent. Rate : 78 BPM Atrial Rate : 78 BPM P-R Int : 284 ms QRS Dur : 168 ms QT Int : 442 ms P-R-T Axes : -21 -69 30 degrees QTcB Int : 503 ms Atrial-paced rhythm with prolonged AV conduction with Premature supraventricular complexes Indeterminate axis Right bundle branch block Abnormal ECG When compared with ECG of 02-Jul-2025 02:25, No significant change was found Confirmed by Erik Bond ([id number]) on 07/10/2025 12:48:42 PM Referred By: REFERRED SELF Confirmed By: Erik Bond
--- NOTE | 2025-07-10 12:49 | Electrocardiogram Report ---
Test Reason : Blood Pressure : */* mmHG Vent. Rate : 71 BPM Atrial Rate : 71 BPM P-R Int : 292 ms QRS Dur : 172 ms QT Int : 492 ms P-R-T Axes : -16 134 44 degrees QTcB Int : 534 ms Atrial-paced rhythm with prolonged AV conduction with frequent ventricular-paced complexes Right bundle branch block Abnormal ECG When compared with ECG of 09-Jul-2025 20:40, (unconfirmed) Electronic ventricular pacemaker has replaced Electronic atrial pacemaker Confirmed by Erik Bond ([id number]) on 07/10/2025 12:48:50 PM Referred By: REFERRED SELF Confirmed By: Erik Bond
--- NOTE | 2025-07-10 14:24 | Hospitalist Progress Note ---
Date of Service July 10, 2025 Assessment & Plan (1) Sustained VT (ventricular tachycardia): (2) Near syncope: (3) Lyme disease: (4) Cardiomyopathy, ischemic: Plan 75-year-old male with CAD pacemaker ischemic CM and VT who presented with multiple presyncopal episodes secondary to VT Recently admitted with VT after a trip from [place], Dr. Ortez consulted and adjusted his metoprolol, consolidating the dosing On that admission he was diagnosed with Lyme and started treatment with doxycycline Sustained V. tach/near syncope- Continued to have a prolonged episode overnight - reviewed tele - 87 beats at 02:55 -consulted cardiology and discussed with Dr. Bond -continue amiodarone drip and telemetry monitoring -monitor K, Mag -remain in PCU CAD/HFrEF- Most recent EF on was 35-40% Hold amlodipine Continue aspirin given metoprolol succinate 75 mg this AM. Resume usual home dose 125 mg tomorrow Lyme disease- seems probably unrelated to VT, which he's had before Only symptom was headache Tested positive on 07/02 Lyme screen, IgM and IgG Continue doxycycline Insomnia- Continue lorazepam 1 mg by mouth at bedtime Hyperlipidemia- Continue atorvastatin Peripheral neuropathy- Continue gabapentin Admission and Anticipated Discharge Date Admission Date: July 09, 2025 Subjective Definitely feels better. Did have an episode of 87 beat VT at 2:55 this AM No chest pain or dyspnea Physical Exam 2 Physical Exam: Last 24h vitals reviewed GEN: no acute distress, sitting in bed HEENT: pupils equal, sclerae anicteric, moist MM RESP: normal WOB, CTAB CV: reg no mrg ABD: soft/nt/nd +BT : no garcia SKIN: warm and dry, no generalized rashes NEURO: AOx person, place, and situation. Face symmetric, speech normal, moves 4 ext spontaneously and equally Results & Data Results & Data Vital Signs (Past 12 Hours) Vital Signs Temp Pulse Resp BP Pulse Ox O2 Del Method 07/10/25 12:03 36.5 C 70 20 117/70 98 Room Air 07/10/25 08:00 36.5 C 77 20 120/74 96 Room Air 07/10/25 03:33 131/86 07/10/25 03:16 36.4 C L 78 18 131/82 98 Room Air Laboratory Results 07/10/25 05:07/10/25 05:29 TSH normal Mag normal Tn low PG Care Time/CCT Total # of Minutes Spent Total Time Spent with Patient: Total time spent is greater than 50% in coordination of care (as documented) at patient's floor/unit and/or counseling patient: Coding Level of Care Code 83259 SUB INP/OBS CARE 3/50MIN Diagnoses Sustained VT (ventricular tachycardia) I47.20 Near syncope R55 Lyme disease A69.20 Cardiomyopathy, ischemic I25.5
[2025-07-10] MEDS ORDERED: LORazepam 1 MG TAB PO SCH (21:00)
[2025-07-10] MEDS: ATORVASTATIN 40 MG TAB PO SCH (21:13)
[2025-07-11 06:24] LABS: Hematocrit (blood only) 42.2 % (42.0-52.0); Hemoglobin 14.8 g/dl (14.0-18.0); Immature Granulocytes # (auto) 0.03 K/uL (0.01-0.20); Immature Granulocytes % (auto) 0.3 %; Mean Corpuscular Hemoglobin 31.0 pg (25.0-34.0); Mean Corpuscular Volume 88.5 fL (80.0-100.0); Platelet Count 211 K/uL (130-400); RDW Standard Deviation 40.8 fL (36.4-46.3); Red Blood Count 4.77 M/uL (4.70-6.10); White Blood Count 8.59 K/ul (4.8-10.8)
[2025-07-11 06:41] LABS: Alanine Aminotransferase 9.0 U/L (7-52); Albumin Globulin Ratio 1.3 (0.9-2); Alkaline Phosphatase 81.0 U/L (34-104); Anion Gap 4.0 (3-11); Bilirubin,Total 0.7 mg/dl (0.2-1.0); Blood Urea Nitrogen 12.0 mg/dl (6-23); Calcium 8.8 mg/dl (8.6-10.3); Carbon Dioxide 28.0 mmol/L (21-32); Chloride 107.0 mmol/L (98-107); Creatinine Clr Calc Pharmacy 76.7 ml/min; Globulin 2.7 gm/dl (2.5-4.0); Glucose 96.0 mg/dl (70-99(Fasting)); Magnesium 2.0 mg/dl (1.7-2.4); Potassium 3.9 mmol/L (3.5-5.1); Sodium 139.0 mmol/L (136-145); Total Protein 6.2 gm/dl (6.0-8.3)
[2025-07-11] MEDS: METOPROLOL SUCC 25MG EXT REL TAB PO SCH (09:39)
[2025-07-11] MEDS: DOXYCYCLINE HYCLATE 100 MG CAP PO SCH (09:40)
[2025-07-11] MEDS: POTASSIUM CHLORIDE CRTAB 20 MEQ TABCR PO ONE (09:44)
--- NOTE | 2025-07-11 11:55 | Cardiology Progress Note ---
Date of Service July 11, 2025 Assessment & Plan (1) Ventricular tachycardia: (2) Cardiomyopathy, ischemic: (3) Cardiac pacemaker: (4) Hypertension: (5) Hypercholesteremia: (6) CAD (coronary artery disease), iliamna coronary artery: (7) S/P CABG x 3: Plan ASSESSMENT/PLAN: 1. Ventricular tachycardia: Symptomatic per patient report. Seems to be suppressed on amiodarone therapy. Dr. Bond discussed with EP yesterday with a plan for amiodarone. Convert IV amiodarone to p.o. amiodarone 400 mg twice daily for 7 more days and then 200 mg twice daily until seen by electrophysiology in the outpatient setting. Monitor transaminase levels and TSH periodically. Discussed potential adverse reactions with patient today. Ablation has also been considered by electrophysiology per 07/02/2025 consultation. 2. Cardiomyopathy: Moderately reduced LV systolic function. Continue to monitor and if LV systolic function drops, could consider upgrade from pacemaker to ICD. Continue metoprolol succinate. Consider other GDMT in the outpatient setting. He appears euvolemic. 3. Pacemaker: Followed by electrophysiology. 4. CAD s/p CABG x 3: No angina. Risk factor modification. Continue aspirin and high intensity statin therapy. Continue beta-seferino. 5. Hypertension: Blood pressure has been normotensive to mildly hypertensive. Continue current regimen and further adjustments can be made as necessary. 6. Dyslipidemia: Continue high intensity statin therapy. 7. Disposition: Can be discharged from a cardiology standpoint with close follow-up with electrophysiology in the next 1 to 2 weeks. Cardiology office contacted to help arrange this appointment. Patient care discussed with Dr. Banda of the primary hospitalist service. Admission and Anticipated Discharge Date Admission Date: July 09, 2025 Subjective Patient seen this morning. He denies chest pain, shortness of breath, syncope, near syncope, palpitations, edema, or bleeding. He had questions about amiodarone therapy. He was unaccompanied. Physical Exam Physical Exam: Gen.: No acute distress. Alert and oriented. HEENT: Anicteric sclera. Neck: No JVD. Cardiac: Regular. Normal S1-S2. No murmurs, rubs, or gallops. Pulmonary: Clear to auscultation bilaterally without wheezes, rales, or rhonchi. Abdomen: Soft, nontender, nondistended, with normoactive bowel sounds. No bruits noted. Extremities: 2+ radial pulses bilaterally. No edema or cyanosis. Results & Data Vital Signs (Past 12 Hours) Vital Signs Temp Pulse Resp BP Pulse Ox O2 Del Method 07/11/25 10:42 36.4 C L 68 18 136/90 96 Room Air 07/11/25 07:52 36.6 C 67 20 132/85 98 Room Air 07/11/25 02:55 36.6 C 75 20 130/85 98 Room Air Laboratory Results Laboratory Results - last 24 hr 07/11/25 05:40 WBC 8.59 RBC 4.77 Hgb 14.8 Hct 42.2 MCV 88.5 MCH 31.0 MCHC 35.1 RDW Std Deviation 40.8 RDW Coeff of Marco Antonio 12.5 Plt Count 211 MPV 9.9 Immature Gran % (Auto) 0.3 Neut % (Auto) 62.2 Lymph % (Auto) 26.2 [place] % (Auto) 7.8 Eos % (Auto) 3.0 Baso % (Auto) 0.5 Neut # (Auto) 5.34 Lymph # (Auto) 2.25 [place] # (Auto) 0.67 H Eos # (Auto) 0.26 Baso # (Auto) 0.04 Immature Gran # (Auto) 0.03 Sodium 139 Potassium 3.9 Chloride 107 Carbon Dioxide 28 Anion Gap 4 BUN 12 Creatinine 0.92 Est Cr Clr Drug Dosing 76.7 eGFR 86.21 BUN/Creatinine Ratio 13.0 Glucose 96 Calcium 8.8 Magnesium 2.0 Total Bilirubin 0.7 AST 16 ALT 9 Alkaline Phosphatase 81 Total Protein 6.2 Albumin 3.5 Globulin 2.7 Albumin/Globulin Ratio 1.3 Diagnostic Findings Labs reviewed and notable for normal potassium, normal renal function, normal blood counts, normal transaminase levels. ECG personally reviewed 07/11/2025 at 6:12 AM: Atrial paced 71 bpm. RBBB. Telemetry personally reviewed: Atrial paced. Last episode of ventricular tachycardia was just before noon on 07/10/2025. Chart reviewed. Stress echo report reviewed from 02/17/2025: LV systolic function moderately reduced with EF 35 to 40%. Hypokinesis of the basal inferoseptum, mid inferoseptum and inferior wall. Mildly reduced RV systolic function. Mild AI. Mild MR. Dilated ascending aorta; 4.6 cm. Medications Administered Current Inpatient Medications Acetaminophen (Acetaminophen 325 Mg Tab) 650 mg PO Q4H PRN PRN Reason: Pain or Fever Stop: 08/08/25 23:27 Last Admin: 07/10/25 00:14 Dose: 650 mg Amiodarone HCl (Amiodarone 200 Mg Tab) 400 mg PO BIDM [facility] Stop: 08/10/25 16:59 Aspirin (Aspirin 81 Mg Ectab) 81 mg PO QAM [facility] Stop: 08/09/25 08:59 Last Admin: 07/11/25 09:39 Dose: 81 mg Atorvastatin Calcium (Atorvastatin 40 Mg Tab) 80 mg PO [facility] Stop: 08/09/25 20:59 Last Admin: 07/10/25 21:13 Dose: 80 mg Doxycycline Hyclate (Doxycycline Hyclate 100 Mg Cap) 100 mg PO BID [facility] Stop: 07/21/25 08:59 Last Admin: 07/11/25 09:40 Dose: 100 mg Gabapentin (Gabapentin 300 Mg Cap) 300 mg PO TID [facility] Stop: 08/09/25 08:59 Last Admin: 07/11/25 09:40 Dose: 300 mg Amiodarone HCl/Dextrose (Nexterone / D5w) 360 mg in 200 mls @ 16.667 mls/hr IV .Q12H [facility] Stop: 07/11/25 13:00 Last Admin: 07/11/25 03:57 Dose: 0.5 mg/min, 16.7 mls/hr Lorazepam (Lorazepam 1 Mg Tab) 1 mg PO [facility] Stop: 08/09/25 00:14 Last Admin: 07/10/25 21:13 Dose: 1 mg Metoprolol Succinate (Metoprolol Succ 25mg Ext Rel Tab) [facility] [place]: 08/10/25 08:59 Last Admin: 07/11/25 09:39 Dose: 125 mg PG Care Time/CCT Total # of Minutes Spent Total Time Spent with Patient: Total time spent is greater than 50% in coordination of care (as documented) at patient's floor/unit and/or counseling patient: Coding Level of Care Code 86806 SUB INP/OBS CARE 3/50MIN Diagnoses Ventricular tachycardia I47.20 Cardiomyopathy, ischemic I25.5 Cardiac pacemaker Z95.0 Primary hypertension I10 Hypertension type: primary hypertension Hypercholesteremia E78.00 Coronary artery disease involving iliamna coronary artery of ili[place]na heart without angina pectoris I25.10 [place] vs. transplanted heart: iliamna heart Associated angina: without angina S/P CABG x 3 Z95.1 (4) Hypertension Hypertension type: primary hypertension Qualified Code(s): I10 - Essential (primary) hypertension (6) CAD (coronary artery disease), iliamna coronary artery [place] vs. transplanted heart: iliamna heart Associated angina: without angina Qualified Code(s): I25.10 - Atherosclerotic heart disease of iliamna coronary artery without angina pectoris
--- NOTE | 2025-07-11 13:17 | Discharge Summary ---
Discharge Summary Date of Service July 11, 2025 Principal Dx & Hospital Course #1 = Principal Diagnosis (1) Sustained VT (ventricular tachycardia): (2) Near syncope: (3) Lyme disease: (4) Cardiomyopathy, ischemic: Plan 75-year-old male with CAD pacemaker ischemic CM and VT who presented with multiple presyncopal episodes secondary to VT Recently admitted with VT after a trip from [place], Dr. Ortez consulted and adjusted his metoprolol, consolidating the dosing On that admission he was diagnosed with Lyme and started treatment with doxycycline Sustained V. tach/near syncope- -consulted cardiology - discussed with Dr. Krishna today -treated with amiodarone drip and arrhythmia was suppressed - discharging on oral amiodarone load and follow up referral to EP CAD/HFrEF- Most recent EF on was 35-40% continue amlodipine, metoprolol, ASA stable Lyme disease- seems probably unrelated to VT, which he's had before Only symptom was headache Tested positive on 07/02 Lyme screen, IgM and IgG Continue doxycycline to complete course Insomnia- Continue lorazepam 1 mg by mouth at bedtime Hyperlipidemia- Continue atorvastatin Peripheral neuropathy- Continue gabapentin Admission HPI Per Admitting Provider The patient is a 75-year-old male with a past medical history including sustained V. tach, ischemic cardiomyopathy, nonsustained V. tach, AV block, presence of ICD, hypercholesterolemia, hypertension, CAD, acute NSTEMI, and right ICA stenosis. The patient presents to the emergency department with complaints of near syncope, x 1 yesterday, and then x 6 today, the day of admission. He had most recently been admitted to [facility] from 07/02 in the a.m. and was discharged on 07/02 in the PM, for recurrent sustained V. tach, that was thought more due to physical stress of travel per cardiology. [employer] review of his ICD notes 9 episodes of sustained V. tach, which with 3 longest being 22 seconds, 38 seconds, and 59 seconds. Cardiology on-call Dr. Bond was contacted by the ED, and agrees that patient should be started on amiodarone bolus and drip, and this was begun in the ED, after receiving Lopressor 5 mg IV. The patient was then admitted to the PCU for ongoing treatment. Discharge Exam Last 24h vitals reviewed GEN: no acute distress, sitting in bed exam unchanged and remains normal HEENT: pupils equal, sclerae anicteric, moist MM RESP: normal WOB, CTAB CV: reg no mrg ABD: soft/nt/nd +BT : no garcia SKIN: warm and dry, no generalized rashes NEURO: AOx person, place, and situation. Face symmetric, speech normal, moves 4 ext spontaneously and equally Discharge Plan Discharge Items Patient Disposition: Home - Self-Care Reason For Visit: SUSTAINED V TACH, NEAR SYNCOPE, LYME Discharge Diagnosis: Near syncope, Ventricular tachycardia, Lyme disease Condition on Discharge: Fair Activity: Per Instructions section Non-emergency contact: Primary Care Provider and Welder Apprentice Call non-emergency contact if: you have any medication questions and your symptoms worsen Follow-up/Referrals: Paul Ortez MD [Physician] - 08/10/25 (Pt previously scheduled on 08/10/25 with Mansi Parks) Fay Cruz PA-C [Primary Care Provider] - 07/20/25 11:00 am (Hopital follow up with Nash Huynh on 07/20/25 at 11:00 at the [facility] location) Diet: Heart Healthy Addtl Attending Provider Instructions: You were treated for arrhythmia (ventricular tachycardia) which was causing the passing out episodes We started a new medication called amiodarone which will help prevent this abnormal rhythm Do not drive until cleared by your locomotive driver, because you are at risk for passing out (syncope) which could cause you to crash It was a pleasure taking care of you in the hospital, Sarina Banda MD Pending Studies at Discharge: No Stand-Alone Forms: My [facility] [employer], Smoking Cessation Medications and DC Order Prescriptions: New doxycycline hyclate 100 mg Capsule 100 mg PO BID Qty: 0 0RF amiodarone 200 mg Tablet See Rx Instructions .ROUTE .COMPLEX Qty: 70 0RF Rx Instructions: 2 tabs twice a day for seven days, then decrease to 1 tab twice a day Continued amlodipine 2.5 mg tablet 2.5 mg PO DAILY Qty: 90 3RF lorazepam 0.5 mg tablet 1 mg PO HS gabapentin 300 mg capsule 300 mg PO TID atorvastatin 80 mg tablet 80 mg PO HS Qty: 90 3RF metoprolol succinate 100 mg tablet extended release 24 hr 100 mg PO DAILY Qty: 90 3RF metoprolol succinate 25 mg tablet extended release 24 hr 25 mg PO DAILY Qty: 90 3RF aspirin 81 mg Tablet,Chewable 81 mg PO QAM Discharge Orders: Discharge Order (Routine); Ordered 07/11/25 Ordered By: Sarina Banda Admission Data Admit Date/Time: 07/09/25 22:48 Attending Provider: Sarina Banda Admit Provider: Jefferson Blue Primary Care Provider: Fay Cruz Other Providers: Jefferson Blue; Erik Bond Other Interventions: Discharge Summary Assessment (RN) Last Done: 07/11/25 13:42 Hospital Stay Data Consultations 07/09/25 22:05 ED Decision to Admit Stat 07/09/25 23:28 Consult Cardiology Routine Pending Results Patient Have Any Pending Studies at Discharge: No Discharge Instructions Given to Patient (Per Discharging Provider) You were treated for arrhythmia (ventricular tachycardia) which was causing the passing out episodes We started a new medication called amiodarone which will help prevent this abnormal rhythm Do not drive until cleared by your locomotive driver, because you are at risk for passing out (syncope) which could cause you to crash It was a pleasure taking care of you in the hospital, Sarina Banda MD Total Time Total Time Spent Total Time Spent (In Minutes): <30 Coding Level of Care Code 69666 IN/OBS DISCH 30 MIN/LESS Diagnoses Sustained VT (ventricular tachycardia) I47.20 Near syncope R55 Lyme disease A69.20 Cardiomyopathy, ischemic I25.5
[2025-07-11 15:40] VITALS: BP 152/89; PULSE 74; RESP 20; TEMP 97.7; O2SAT 97
[2025-07-11] MEDS ORDERED: AMIODARONE 200 MG TAB PO SCH (17:00)
[2025-07-18] MEDS ORDERED: AMIODARONE 200 MG TAB PO SCH (17:00)
== END 2025-07-11 17:20 | disposition home or self-care (01) | DRG 868 ==
LOC: SUATTDRO → ED 20:29 → SUATTDRO 22:48 → 2S 22:48